=== PATIENT | male | born 1970 | race Hispanic/Latino ===

== ENCOUNTER 2022-10-04 11:40 | Emergency (ER) | payer BC, OTHER ==
[~2022-10-04] VITALS: Ht 175.3 cm; Wt 152.0 kg
[2022-10-04 13:15] LABS: BASOPHILS % (AUTO) 0.6 % (0.0-5.0); EOSINOPHILS % (AUTO) 1.8 % (0.0-8.0); HEMATOCRIT 38.4 % (42-54); LYMPHOCYTES % (AUTO) 23.7 % (21.0-51.0); MEAN CORPUSCULAR HEMOGLOBIN 27.4 pg (27.0-33.0); MEAN CORPUSCULAR HGB CONC 33.9 g/dL (32.0-36.0); MEAN CORPUSCULAR VOLUME 80.8 fL (79-99); MONOCYTES % (AUTO) 6.6 % (3.0-13.0); NEUTROPHILS % (AUTO) 66.7 % (40.0-77.0); PLATELET COUNT (AUTO) 256 K/uL (130-400); RED BLOOD CELL COUNT(AUTO) 4.75 MIL/uL (4.50-6.20); RED CELL DISTRIBUTION WIDTH 13.9 % (11.0-15.5); WHITE BLOOD COUNT (AUTO) 10.3 K/uL (4.8-10.8)
[2022-10-04 14:13] LABS: ALBUMIN 3.3 g/dL (3.5-5.0); CREATININE 0.9 mg/dL (0.5-1.5); TOTAL PROTEIN, SERUM 7.3 g/dL (6.0-8.3)
[2022-10-04 14:14] LABS: POTASSIUM 2.9 mmol/L (3.5-5.1)
[2022-10-04] MEDS: POTASSIUM BICARB/CIT AC 25 MEQ TABLET.EFF PO ONE (15:19)
[2022-10-04] MEDS ORDERED: POTA99CA PO (16:03)
[2022-10-04 16:14] VITALS: BP 156/77
== END 2022-10-04 16:20 | disposition home or self-care (01) ==
LOC: EDH 11:40
DX: E87.6 Hypokalemia (principal); R00.2 Palpitations; E11.9 Type 2 diabetes mellitus without complications; I10 Essential (primary) hypertension
CPT/HCPCS: 36415; 71045; 80053; 84484; 85025; 93005

== ENCOUNTER 2024-10-18 08:53 | Inpatient (IN) | payer BC ==
[~2024-10-18] VITALS: Ht 175.3 cm; Wt 145.7 kg
[~2024-10-18 08:53] MED LIST: POTA99CA PO
--- NOTE | 2024-10-18 09:24 | ERN ---
General Chief Complaint: Dyspnea/Respdistress Stated Complaint: SOB X 3 DAYS Time Seen by MD: 09:01 History of Present Illness Initial Comments 54-year-old male, history of obesity, hypertension, diabetes, presents for dyspnea for the last three or four days. He reports two months of worsening dyspnea, but the last three or four days have been severe. He reports he feels like he is wheezing and he can not catch a deep breath. No sore throat, productive cough, or fever. He went to his PCP and was started on Trelegy and albuterol. He has been using this regularly without any relief. He also reports that he recently switched from hydrochlorothiazide to Lasix about four months ago. He does report some mild bilateral pedal edema. No chest pain. PCP: Mathew Allergies: Coded Allergies: No Known Drug Allergies (Verified Allergy, 08/29/13) Home Meds Active Scripts Albuterol Sulfate (Ventolin Hfa) 90 Mcg Hfa.aer.ad, 2 PUFF IH Q4PRN PRN for SHORTNESS OF BREATH/WHEEZING for 90 Days, #7 INHALER Prov:CR CARMONA MD 10/18/24 Amlodipine Besylate (Amlodipine Besylate) 10 Mg Tablet, 10 MG PO DAILY for 30 Days, #30 TAB 0 Refills Prov:CR CARMONA MD 10/18/24 Buspirone HCl (Buspirone HCl) 5 Mg Tablet, 5 MG PO BID PRN for ANXIETY, #90 TAB Prov:CR CARMONA MD 10/18/24 Carvedilol (Carvedilol) 25 Mg Tablet, 25 MG PO BID for 90 Days, #180 TAB Prov:CR CARMONA MD 10/18/24 Cetirizine HCl (Cetirizine HCl) 10 Mg Tablet, 10 MG PO HS, #90 TAB Prov:CR CARMONA MD 10/18/24 Sacubitril/Valsartan (Entresto 49 mg-51 mg Tablet) 49 Mg-51 Mg Tablet, 1 TAB PO BID for 90 Days, #180 TAB Prov:CR CARMONA MD 10/18/24 Escitalopram Oxalate (Escitalopram Oxalate) 10 Mg Tablet, 10 MG PO DAILY for 90 Days, #90 TAB Prov:CR CARMONA MD 10/18/24 Fluticasone Propionate (Flonase Allergy Relief) 50 Mcg/Actuation [place].susp, 2 SPRAY NS DAILY PRN for allergies, #9 ML Prov:CR CARMONA MD 10/18/24 Furosemide (Furosemide) 40 Mg Tablet, 40 MG PO BID for 90 Days, #180 TAB Prov:CR CARMONA MD 10/18/24 Hydralazine HCl (Hydralazine HCl) 100 Mg Tablet, 100 MG PO TID for 90 Days, #270 TAB Prov:CR CARMONA MD 10/18/24 Metformin HCl (Metformin HCl) 500 Mg Tablet, 500 MG PO BID for 90 Days, #180 TAB Prov:CR CARMONA MD 10/18/24 Minoxidil (Minoxidil) 10 Mg Tablet, 10 MG PO BID for 90 Days, #180 TAB Prov:CR CARMONA MD 10/18/24 Semaglutide (Ozempic) 2 Mg/0.75 Ml (8 Mg/3 Ml) Pen.injctr, 2 MG SQ QWEEK for 90 Days, #3 ML Prov:CR CARMONA MD 10/18/24 Rosuvastatin Calcium (Rosuvastatin Calcium) 5 Mg Tablet, 5 MG PO HS for 90 Days, #90 TAB Prov:CR CARMONA MD 10/18/24 Fluticasone/Umeclidin/Vilanter (Trelegy Ellipta 100-62.5-25) 100-62.5 Blst.w.dev, 1 PUFF IH DAILY for 90 Days, #90 EA Prov:CR CARMONA MD 10/18/24 Discontinued Scripts Potassium Citrate (Potassium) 99 Mg Capsule, 99 MG PO BID, #7 CAP Prov:ALEKSANDER BOURNE MD 10/04/22 Past Medical History Past Medical History: CHF, Diabetes-Type II, Hypertension Past Surgical History: None Surgical History Other: LEFT LEG Social History Social History: Negative ROS Dictation CONSTITUTIONAL: No chills, no fever, no weakness, no diaphoresis, no malaise. HEAD/FACE: No signs of trauma. EENT: No eye pain, no blurred vision, no tearing, no double vision, no ear pain, no ear discharge, no nose pain, no nasal congestion, no throat pain, no throat swelling, no mouth pain. RESPIRATORY: Dyspnea CARDIOVASCULAR: No chest pain, no edema, no palpitations, no syncope. GASTROINTESTINAL/ABDOMINAL: No abdominal pain, no constipation, no diarrhea, no nausea, no vomiting. GENITOURINARY: No abnormal discharge, no dysuria, no frequent urination, no hematuria. No complaints of pain in the genitals. MUSCULOSKELETAL: No back pain, no gout, no joint pain, no joint swelling, no muscle pain, no muscle stiffness, no neck pain. INTEGUMENTARY: No change in color, no change in hair/nails, no dryness, no lesion, no lumps, no rash. NEUROLOGICAL/PSYCH: No anxiety, not depressed, no emotional problem, no headache, no numbness, no pre-existing deficit, no history of seizures, no tremors, no weakness. HEMATOLOGIC/LYMPHATIC: Not anemic, no history of blood clots, no apparent bleeding, no bruising, glands not swollen. All Systems Negative, Except as Noted. Physical Exam Physical Exam Dictation VITAL SIGNS: Reviewed. GENERAL APPEARANCE: Alert, oriented x3, moderate distress, obese. HEAD AND FACE: Non-traumatic. EYES: PERRL, pink conjunctivas, eyelid no trauma, anterior chamber clear. EARS: Pinnas intact and no signs of trauma or erythema. Ear canals clear and no discharge. TMs no erythema. NOSE: No discharge, no bleeding. OROPHARYNX: Mouth normal, teeth no caries, tongue pink. Pharynx clear, no erythema. Tonsils no exudates, no abscesses noted. Mucous membrane moist. NECK: Supple, non-tender, no thyromegaly, no masses, no JVD, no bruits. BREAST: Deferred. CHEST: No tenderness, no crepitus, no paradoxical movement, no retractions. LUNGS: Mild wheezing and congestion, tachypneic HEART: Regular rate, regular rhythm, no murmur, no gallops. VASCULAR: No peripheral edema. ABDOMEN: Soft, positive bowel sounds, nondistended, no guarding, nontender, no rebound, no masses no hepatomegaly, no splenomegaly, no Goodwin's sign, no hernias. RECTAL: Deferred. GENITAL: Deferred. NEUROLOGICAL: Normal speech, gross motor function intact, gross sensory function intact. MUSCULOSKELETAL: Neck nontender, full range of motion, back nontender, full range of motion. EXTREMITIES: Nontender, full range of motion. SKIN: Color pink, dry, no turgor, no rash, no lacerations, no abrasions, no contusions. LYMPHATICS: Deferred. Results Laboratory and Microbiology Lab and Micro Result Laboratory Tests Test 10/18/24 09:13 10/18/24 09:57 White Blood Count 7.0 K/uL (4.8-10.8) Red Blood Count 4.58 MIL/uL (4.50-6.20) Hemoglobin 12.7 g/dL (14.0-18.0) L Hematocrit 38.6 % (42-54) L Mean Corpuscular Volume 84.3 fL (79-99) Mean Corpuscular Hemoglobin 27.7 pg (27.0-33.0) Mean Corpuscular Hemoglobin Concent 32.9 g/dL (32.0-36.0) Red Cell Distribution Width 14.1 % (11.0-15.5) Platelet Count 210 K/uL (130-400) Mean Platelet Volume 9.4 fL (7.5-10.5) Immature Granulocyte % (Auto) 0.6 % (0-1) Neutrophils (%) (Auto) 69.3 % (40.0-77.0) Lymphocytes (%) (Auto) 22.6 % (21.0-51.0) Monocytes (%) (Auto) 4.6 % (3.0-13.0) Eosinophils (%) (Auto) 2.3 % (0.0-8.0) Basophils (%) (Auto) 0.6 % (0.0-5.0) Neutrophils # (Auto) 4.8 K/uL (1.8-7.7) Lymphocytes # (Auto) 1.6 K/uL (1.0-4.8) Monocytes # (Auto) 0.3 K/uL (0.1-1.0) Eosinophils # (Auto) 0.16 K/uL (0.00-0.70) Basophils # (Auto) 0.04 K/uL (0.00-0.20) Absolute Immature Granulocyte (auto 0.04 K/uL (0-1) Nucleated Red Blood Cells 0.0 % (0.0-0.19) Sodium Level 143 mmol/L (136-145) Potassium Level 3.0 mmol/L (3.5-5.1) *L Chloride Level 106 mmol/L (101-111) Carbon Dioxide Level 32 mmol/L (21-32) Blood Urea Nitrogen 15 mg/dL (7-18) Creatinine 1.3 mg/dL (0.5-1.3) Glomerular Filtration Rate Calc 65 mL/min (>90) Random Glucose 231 mg/dL (70-105) H Total Calcium 8.6 mg/dL (8.5-10.1) Total Creatine Kinase 72 U/L (21-232) Troponin I High Sensitivity 18 ng/L (4-75) B-Type Natriuretic Peptide 128 pg/mL (0-100) H Blood Gas Specimen Type Arterial Arterial Blood pH 7.445 (7.350-7.450) Arterial Blood Partial Pressure CO2 35 mmHg (35-48) Arterial Blood Partial Pressure O2 66.7 mmHg (83.0-108.0) L Arterial Blood HCO3 23.6 mmol/L (21.0-28.0) Arterial Blood Oxygen Saturation 94.1 % (94.0-98.0) Arterial Blood Base Excess 0.1 mmol/L (-2.0-3.0) Blood Gas Temperature 37.0 CELSIUS (35.5-37.0) Blood Gas Vent Mode RA (ROOM AIR) FiO2 31.0 % Blood Gas Specimen Comment RRJULIE MDM CC: Dyspnea Historian: Patient Comorbidities: Possible CHF, dm two, hypertension, concern for emphysema being worked up as an outpatient, obesity, GIANCARLO, previous smoker Differential diagnosis: Emphysema, pneumonia, CHF, tamponade, PE, other. Vitals: Initially tachypneic breathing 20-20 4 times a minute. Blood pressure is stable. Oxygen 91%. Placed on cannula. EKG: Sinus rhythm rate of 67 with a normal axis good R progression intervals are stable. T-wave inversion in leads one and aVL. Otherwise unremarkable ST segments and T-waves. independently interpreted by me. CXR: Cardiomegaly, vascular congestion. Independently interpreted by me. Labs: No leukocytosis no anemia. Chemistry shows hypokalemia, otherwise nor mal electrolytes. Glucose 231. The CK, troponin stable. BNP mildly elevated 128. ABG shows PaO2 of 66 on room air. Otherwise unremarkable ABG. He was placed on 2 L nasal cannula. Patient received 40 mg of IV Lasix, potassium bicarb p.o., methylprednisolone, and a DuoNeb here in the ER. CT angiogram per my independent interpretation shows no signs of PE, but there is pericardial effusion. This may be causing the patient's symptoms. I discussed the case with the patient's primary provider Dr. Carmona. Recommend admission. ED Course Orders Procedure Category Date Status Time Cbc With Differential LAB 10/18/24 Complete 08:59 B-Type Natriuretic LAB 10/18/24 Complete Peptide 08:59 Chest 1vw RAD 10/18/24 Resulted 08:59 12 Lead Ekg Tracing- EKG 10/18/24 Resulted Technical 08:59 Creatine Kinase, Total LAB 10/18/24 Complete 08:59 Troponin I High LAB 10/18/24 Complete Sensitivity 08:59 Basic Metabolic Panel LAB 10/18/24 Complete 08:59 Arterial Blood Gas RT 10/18/24 Transmitted 09:18 Ipratropium/Albuterol PHA 10/18/24 Complete Neb (Duoneb) 09:30 Methylprednisolone PHA 10/18/24 Complete Succ 125mg (Solu-Medr 09:30 Ct Chest Pe Protocol CT 10/18/24 Resulted Wwo Cont 09:18 Arterial Blood Gas LAB 10/18/24 Complete 09:57 Potassium Bicarb/Cit PHA 10/18/24 Complete Ac 25meq (K-Lyte Ta 10:30 Furosemide 40mg Vial PHA 10/18/24 Complete (Lasix 40mg Vial) 10:30 Iohexol (Omnipaque) PHA 10/18/24 Complete 10:42 Vital Signs(Adult CPOE 10/18/24 Transmitted Hospitalist) 12:26 Nurse To Enter Home CPOE 10/18/24 Transmitted Medication 12:26 Admit Orders ADM 10/18/24 Transmitted 12:26 Current Medications Medications (Trade) Dose Ordered Sig/Blaine Route PRN Reason Start Time Stop Time Status Last Admin Dose Admin Albuterol (DUOneb) 1 UDVIAL ONCE ONCE IH 10/18/24 09:30 10/18/24 09:31 DC 10/18/24 10:12 Furosemide (LASix 40MG VIAL) 40 mg ONCE ONCE IV 10/18/24 10:30 10/18/24 10:31 DC 10/18/24 10:24 Iohexol (Omnipaque) 35,000 mg STK-MED ONCE IV 10/18/24 10:42 10/18/24 10:42 DC Methylprednisolone Sodium Succinate (Solu-medROL 125MG) 125 mg ONCE ONCE IVP 10/18/24 09:30 10/18/24 09:31 DC 10/18/24 09:45 Potassium Bicarbonate (K-Lyte Tablet Eff 25 Meq Tablet.eff) 50 meq ONCE ONCE PO 10/18/24 10:30 10/18/24 10:31 DC 10/18/24 10:18 Vital Signs Date Time Temp Pulse Resp B/P (MAP) Pulse Ox O2 Delivery O2 Flow Rate FiO2 10/18/24 11:00 72 16 167/71 97 Nasal Cannula* 3 32 10/18/24 10:13 79 18 10/18/24 08:54 98.6 65 20 183/83 98 Room Air 0 DX & DISP Disposition: Inpatient Departure Impression: Primary Impression: Respiratory failure with hypoxia Additional Impressions: Hyperglycemia, Hypokalemia, Pericardial effusion Condition: Stable Scripts Albuterol Sulfate (Ventolin Hfa) 90 Mcg Hfa.aer.ad 2 PUFF IH Q4PRN PRN for SHORTNESS OF BREATH/WHEEZING for 90 Days, #7 INHALER Prov: CR CARMONA MD 10/18/24 Amlodipine Besylate (Amlodipine Besylate) 10 Mg Tablet 10 MG PO DAILY for 30 Days, #30 TAB 0 Refills Prov: CR CARMONA MD 10/18/24 Buspirone HCl (Buspirone HCl) 5 Mg Tablet 5 MG PO BID PRN for ANXIETY, #90 TAB Prov: CR CARMONA MD 10/18/24 Carvedilol (Carvedilol) 25 Mg Tablet 25 MG PO BID for 90 Days, #180 TAB Prov: CR CARMONA MD 10/18/24 Cetirizine HCl (Cetirizine HCl) 10 Mg Tablet 10 MG PO HS, #90 TAB Prov: CR CARMONA MD 10/18/24 Sacubitril/Valsartan (Entresto 49 mg-51 mg Tablet) 49 Mg-51 Mg Tablet 1 TAB PO BID for 90 Days, #180 TAB Prov: CR CARMONA MD 10/18/24 Escitalopram Oxalate (Escitalopram Oxalate) 10 Mg Tablet 10 MG PO DAILY for 90 Days, #90 TAB Prov: CR CARMONA MD 10/18/24 Fluticasone Propionate (Flonase Allergy Relief) 50 Mcg/Actuation [place].susp 2 SPRAY NS DAILY PRN for allergies, #9 ML Prov: CR CARMONA MD 10/18/24 Furosemide (Furosemide) 40 Mg Tablet 40 MG PO BID for 90 Days, #180 TAB Prov: CR CARMONA MD 10/18/24 Hydralazine HCl (Hydralazine HCl) 100 Mg Tablet 100 MG PO TID for 90 Days, #270 TAB Prov: CR CARMONA MD 10/18/24 Metformin HCl (Metformin HCl) 500 Mg Tablet 500 MG PO BID for 90 Days, #180 TAB Prov: CR CARMONA MD 10/18/24 Minoxidil (Minoxidil) 10 Mg Tablet 10 MG PO BID for 90 Days, #180 TAB Prov: CR CARMONA MD 10/18/24 Semaglutide (Ozempic) 2 Mg/0.75 Ml (8 Mg/3 Ml) Pen.injctr 2 MG SQ QWEEK for 90 Days, #3 ML Prov: CR CARMONA MD 10/18/24 Rosuvastatin Calcium (Rosuvastatin Calcium) 5 Mg Tablet 5 MG PO HS for 90 Days, #90 TAB Prov: CR CARMONA MD 10/18/24 Fluticasone/Umeclidin/Vilanter (Trelegy Ellipta 100-62.5-25) 100-62.5 Blst.w.dev 1 PUFF IH DAILY for 90 Days, #90 EA Prov: CR CARMONA MD 10/18/24 Referrals: CR CARMONA MD (PCP) RICCI BEDOYA DO Oct 18, 2024 09:24
[2024-10-18 09:37] LABS: BASOPHILS # (AUTO) 0.04 K/uL (0.00-0.20); BASOPHILS % (AUTO) 0.6 % (0.0-5.0); EOSINOPHILS # (AUTO) 0.16 K/uL (0.00-0.70); EOSINOPHILS % (AUTO) 2.3 % (0.0-8.0); HEMATOCRIT 38.6 % (42-54); IMMATURE GRANULOCYTE ABSOLUTE 0.04 K/uL (0-1); LYMPHOCYTES # (AUTO) 1.6 K/uL (1.0-4.8); LYMPHOCYTES % (AUTO) 22.6 % (21.0-51.0); MEAN CORPUSCULAR HEMOGLOBIN 27.7 pg (27.0-33.0); MEAN CORPUSCULAR HGB CONC 32.9 g/dL (32.0-36.0); MEAN CORPUSCULAR VOLUME 84.3 fL (79-99); MONOCYTES # (AUTO) 0.3 K/uL (0.1-1.0); MONOCYTES % (AUTO) 4.6 % (3.0-13.0); NEUTROPHILS # (AUTO) 4.8 K/uL (1.8-7.7); NEUTROPHILS % (AUTO) 69.3 % (40.0-77.0); PLATELET COUNT (AUTO) 210 K/uL (130-400); RED BLOOD CELL COUNT(AUTO) 4.58 MIL/uL (4.50-6.20); RED CELL DISTRIBUTION WIDTH 14.1 % (11.0-15.5)
--- NOTE | 2024-10-18 09:41 | EKG ---
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[id number] Requested By: RHIANNON STEVENSON Order Number: [id number] Reading MD: Joelle Simmons Measurements Intervals [place] Rate: 67 P: -12 WY: 214 QRS: -4 QRSD: 95 T: 185 QT: 414 QTc: 436 Interpretive Statements Sinus rhythm Prolonged [place] interval Low voltage, precordial leads Consider anterior infarct Abnormal T, consider ischemia, lateral leads Compared to ECG 10/04/2022 12:26:39 First degree AV block now present Low QRS voltage now present Myocardial infarct finding now present T-wave abnormality still present Possible ischemia still present Electronically Signed On 10-18-2024 13:33:50 APPLICATION SECURITY ARCHITECT by Joelle Simmons Please click the below link to view image of tracing.
[2024-10-18] MEDS: Solu-medROL 125MG VIAL IVP ONE (09:45)
[2024-10-18 09:47] LABS: CREATININE 1.3 mg/dL (0.5-1.3)
[2024-10-18 09:58] LABS: ABG BASE EXCESS 0.1 mmol/L (-2.0-3.0); ABG HCO3 23.6 mmol/L (21.0-28.0); ABG OXYGEN SATURATION 94.1 % (94.0-98.0); ABG PCO2 35 mmHg (35-48); ABG PH 7.445 (7.350-7.450); DEVICE COMMENT RRJULIE; PO2, ARTERIAL BG 66.7 mmHg (83.0-108.0); VENT MODE, BG RA (ROOM AIR)
--- NOTE | 2024-10-18 10:00 | HMCIMG ---
CHEST 1VW REASON: shortness of breath COMPARISON: 10/04/2022 FINDINGS: There is stable cardial megaly. There is mild vascular congestion. Lungs are otherwise clear. Mediastinum and bony thorax appear unremarkable. IMPRESSION: 1. Cardiomegaly with vascular congestion consistent with CHF.
[2024-10-18 10:01] LABS: B-TYPE NATRIURETIC PEPTIDE 128 pg/mL (0-100)
[2024-10-18] MEDS: IpraTROPium/alBUTERol SULFATE 3 ML SOLUTION IH ONE (10:12)
[2024-10-18 10:13] VITALS: PULSE 79; RESP 18
[2024-10-18] MEDS: PoTASSium BIcarbonate/CIT AC 25 MEQ TABLET.EFF PO ONE (10:18)
[2024-10-18] MEDS: furoSEMIDE 40MG VIAL IV ONE (10:24)
[2024-10-18] MEDS ORDERED: IOHEXOL 350 MG/ML 100ML INFUS..BTL IV ONE (10:42)
--- NOTE | 2024-10-18 12:04 | HMCIMG ---
CT CHEST PE PROTOCOL [facility] CONT REASON: r/o PE TECHNIQUE: Thin axial images through the chest were obtained during bolus intravenous administration of 100 ml of Omnipaque 350. Sagittal and coronal reconstruction images were performed. FINDINGS: Lungs are clear. There are no focal masses or infiltrates. There is cardiomegaly accentuated by a moderate pericardial effusion, the effusion measures 2 cm along the left heart margin. There is no hilar or mediastinal lymphadenopathy. Chest wall structures appear normal as do visualized upper abdominal structures. Contrast outlines normal appearing central pulmonary arteries. There is no CT evidence of PE. The a sending aorta appears normal without aneurysm or dissection. IMPRESSION: 1. There is cardiomegaly, there is also moderate pericardial effusion. 2. No CT evidence of PE. CT was performed with one or more following dose reduction techniques: automated exposure control, adjustment of the mA and kv according to patient's size, or use of a iterative reconstruction technique.
[2024-10-18] MEDS ORDERED: guaiFENesin-DM 200/20MG 10ML PO PRN (12:30)
[2024-10-18] MEDS ORDERED: MAGNESIUM 2GM PREMIX 50ML 50 ML IV PRN (12:30)
[2024-10-18] MEDS ORDERED: acetaMINOPHEN 325 MG TAB PO PRN (12:30)
[2024-10-18] MEDS ORDERED: PoTASSium chl 10% ELIXIR 20MEQ 20 MEQ/15 ML UDCUP PO PRN (12:30)
[2024-10-18] MEDS ORDERED: ondanSETRON 4MG INJ IV PRN (12:30)
[2024-10-18] MEDS ORDERED: DEXTROSE 50%-WATER 50 ML DISP.SYRIN IV PRN ×2 (12:30→18:30)
[2024-10-18] MEDS ORDERED: MAG/ALUM/SIMETH 30 ML UDCUP PO PRN (12:30)
[2024-10-18] MEDS ORDERED: ALBUTEROL 0.083% 2.5 MG/3 ML INH IH PRN (12:30)
[2024-10-18] MEDS ORDERED: GLUCAGON 1MG KIT 1 MG ML IM PRN ×2 (12:30→18:30)
[2024-10-18] MEDS ORDERED: LACTULOSE 20 GM/30 ML UDCUP PO PRN (12:30)
[2024-10-18] MEDS ORDERED: HYDR100T15 PO (12:32)
[2024-10-18] MEDS ORDERED: ROSU5TAB51 PO (12:32)
[2024-10-18] MEDS ORDERED: BUSP5TAB3 PO (12:32)
[2024-10-18] MEDS ORDERED: ESCI-8 PO (12:32)
[2024-10-18] MEDS ORDERED: SACU1TAB7 PO (12:32)
[2024-10-18] MEDS ORDERED: ALBU18HF7 IH (12:32)
[2024-10-18] MEDS ORDERED: FLUT9.9S NS (12:32)
[2024-10-18] MEDS ORDERED: FURO40TA5 PO (12:32)
[2024-10-18] MEDS ORDERED: AMLO-258 PO (12:32)
[2024-10-18] MEDS ORDERED: FLUT1BLS3 IH (12:32)
[2024-10-18] MEDS ORDERED: CETI10TA57 PO (12:32)
[2024-10-18] MEDS ORDERED: CARV25TA PO (12:32)
[2024-10-18] MEDS ORDERED: METF-444 PO (12:32)
[2024-10-18] MEDS ORDERED: MINO10TA3 PO (12:32)
[2024-10-18] MEDS ORDERED: SEMA2PEN SQ (12:32)
[2024-10-18] MEDS: hydrALAZine 25MG TABLET PO SCH (15:10)
--- NOTE | 2024-10-18 16:49 | NUR ---
REPORT GIVEN TO RAMIREZ LUTZ PT MOVED FROM ER 9 TO ER 3
--- NOTE | 2024-10-18 17:15 | NUR ---
PATIENT ALERT, ORIENTED IN PERSON, TIME AND PLACE. PATIENT SHORT OF BREATH WHEN RESTING. USING ABDOMINAL MUSCLES. O2 SATURATION 99 % WITH NASAL CANULA @ 3LTS. HE IS IN A SEMI HERNANDES POSITION, 60 DEGRESS, BED LOW AND LOCKED. BLOOD PRESSURE 190/ 100 MMHG, PULSE 91, RESPIRATIONS 20 P/MIN. CALLED DR. TABARES TO NOTIFY HER ABOUT EVENTS. NO ANSWER AT THIS MOMENT. REPOSITIONED PATIENT.
--- NOTE | 2024-10-18 17:30 | NUR ---
SPOKE WITH DR. TABARES; (VIEW ORDERS) CALLED PHARMACY, SPOKE WITH TASIA; NOTIFY HER THAT DR. TABARES GAVE ME THE OK TO GIVE 2100 MDICATIONS.
[2024-10-18] MEDS: (Escitalopram Oxalate 10 MG) PO SCH (17:44)
[2024-10-18] MEDS: amLODIPine 5 MG TAB PO SCH (17:49)
[2024-10-18] MEDS: furoSEMIDE 40MG VIAL IVP SCH ×2 (17:51→20:08)
[2024-10-18] MEDS: furoSEMIDE 40MG VIAL ONE (17:52)
[2024-10-18] MEDS: Solu-medROL 125MG VIAL ONE (17:52)
[2024-10-18] MEDS: SACUBITRIL/VALSARTAN 1 EACH TABLET PO ONE (17:53)
[2024-10-18] MEDS: carVEDIlol 25 MG TABLET PO ONE (17:53)
--- NOTE | 2024-10-18 18:00 | NUR ---
GAVE PATIENT 2100 MEDICATIONS. CALLED RT TO PLACE PATIENT ON A BIPAP.
--- NOTE | 2024-10-18 18:10 | NUR ---
PAGED DR. RUSSELL DIRECTED BY DR. TABARES. LEFT A VOICEMAIL. AND PAGED HIM. NO RESPONSE
[2024-10-18] MEDS: PoTASSium chloRIDE 20MEQ ER 20 MEQ ERTAB PO PRN (18:15)
[2024-10-18] MEDS: ENOXAPARIN SODIUM 40 MG/0.4 ML SYRINGE SQ SCH (18:16)
--- NOTE | 2024-10-18 18:16 | NUR ---
CALLED PHARMACY TO NOTIFY THEM I NEEDED NITRO PATCH 0.2. NOT AVAILABLE ON [facility] IN ED.
--- NOTE | 2024-10-18 18:17 | HP ---
HISTORY AND PHYSICAL Date of Visit: Oct 18, 2024 Time of Visit: 18:17 ADMISSION DATE: Oct 18, 2024 at 12:26 CC: SOB/BARAHONA HPI: THIS IS A 54 YR OLD MAN WITH HISTORY OF MORBID OBESITY, HYPERTENSIVE HEART AND RENAL DISEASE WITH CHRONIC DIASTOLIC CHF, COPD AND GIANCARLO. HE REPORTS COMPLIANCE WITH MEDS AND CPAP. HE HAD BEEN DOING FAIRLY WELL UP UNTIL THE PAST 2 MONTHS WHEN HE STARTED TO NOTICE INCREASED BARAHONA AND INTERMITTENT SOB. HE DENIED ANY CHEST PAIN OR PALPITATION. NO COUGH CONGESTION OR FEVERS. NO ABNORMAL WEIGHT LOSS ABDOMINAL PAIN OR NAUSEA OR VOMITING. HE HAS HAD SOME WHEEZING AND HAS HAD SOME GRADUAL DECREASE IN EXERCISE TOLERANCE. THE PAST FEW DAYS HIS SYMPTOMS HAVE INTENSIFIED. HE HAS SEEN DR VALENTÍN MAZARIEGOS IN THE PAST FOR PREVIOUS CARDIAC WORK UP DONE IN MARCH 2023 WHERE HE WAS FOUND TO HAVE SOME CAD BUT NON - OBSTRUCTIVE DISEASE. HE REPORTS AFTER THAT HE WAS TOLD BY DR RUSSELL THAT HE DID NOT NEED TO SEE HIM UNLESS THERE WERE NEW PROBLEMS THAT DEVELOPED. HE IS ON MULTIPLE MEDS FOR HYPERTENSION CONTROL AND REPORTS HE BELIEVES HIS BLOOD PRESSURE HAD BEEN DOING OK. 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 PAST MEDICAL HISTORY: DM II WITH MULTIPLE COMPLICATIONS HYPERTENSIVE HEART AND RENAL DISEASE WITH CHRONIC DIASTOLIC CHF S/P HEART CATH 03/2023 - DR VALENTÍN RUSSELL - 20-30$ LAD AND 20-30% MID RCA WITH NORMAL EF GIANCARLO WITH REPORTED COMPLIANCE 0 12 CM QHS COPD / FORMER SMOKER MIXED HYPERLIPIDEMIA MORBID OBESITY / BMI 48 ERWIN / MAJOR DEPRESSION, SINGLE EPISODE, MILD LUMBAR STENOSIS / OTHER SPEC SPONDYLOPATHIES, LUMBAR R ADRENAL MYELOLIPOMA 2X1 CM (01/24) SOCIAL HISTORY: LIVES LOCALLY, EX SMOKER NO CURRENT ALCOHOL TOBACCO OR DRUG ABUSE FAMILY HISTORY: + DM HTN CHF COPD ^ Allergies: Coded Allergies: No Known Drug Allergies (Verified Allergy, 08/29/13) Scheduled Amlodipine Besylate (Amlodipine Besylate), 10 MG PO DAILY Carvedilol (Carvedilol), 25 MG PO BID Cetirizine HCl (Cetirizine HCl), 10 MG PO HS Escitalopram Oxalate (Escitalopram Oxalate), 10 MG PO DAILY Fluticasone/Umeclidin/Vilanter (Trelegy Ellipta 100-62.5-25), 1 PUFF IH DAILY Furosemide (Furosemide), 40 MG PO BID Hydralazine HCl (Hydralazine HCl), 100 MG PO TID Metformin HCl (Metformin HCl), 500 MG PO BID Minoxidil (Minoxidil), 10 MG PO BID Rosuvastatin Calcium (Rosuvastatin Calcium), 5 MG PO HS Sacubitril/Valsartan (Entresto 49 mg-51 mg Tablet), 1 TAB PO BID Semaglutide (Ozempic), 2 MG SQ QWEEK Scheduled PRN Albuterol Sulfate (Ventolin Hfa), 2 PUFF IH Q4PRN PRN for SHORTNESS OF BREATH/WHEEZING Buspirone HCl (Buspirone HCl), 5 MG PO BID PRN for ANXIETY Fluticasone Propionate (Flonase Allergy Relief), 2 SPRAY NS DAILY PRN for allergies Discontinued Medications Potassium Citrate (Potassium), 99 MG PO BID Review of Systems Normal Constitutional:, Normal Eyes:, Normal Ear/Nose/Mouth/Throat, Normal Gastrointestinal:, Normal Genitourinary:, Normal Integumentary:, Normal Musculoskeletal:, Normal Neurological:, Normal Psychological:, Normal Endocrine:, Normal Hematologic/Lymphatic:, Normal Allergic/Immunologic:; Abnormal Cardiovascular: (REFER TOP HPI), Abnormal Respiratory: (REFER TO HPI) Physical Exam Vital Signs Vital Signs Date Time Temp Pulse Resp B/P (MAP) Pulse Ox O2 Delivery O2 Flow Rate FiO2 10/18/24 08:54 98.6 65 20 183/83 98 Room Air 0 10/18/24 11:00 32 Appearance: Other (MORBIDLY OBESE RESTIG ON O2 P-ER NC) Eyes: Clear, EOM Normal Ear/Nose/Mouth/Throat: Landmarks WNL, Oropharynx WNL Neck: Symmetric, trach midline, Thyroid WNL Cardiovascular: PMI WNL, Regular Rate, Regular Rhythm, Abnormal (+ TRACE LEG EDEMA) Respiratory: No Retractions, Abnormal (DECREASED BREATH SUND BILATERALLY WITH SOME EXPIRATORY WHEEZING) Lymphatic: No lymphadenopathy neck, No lymphadenopathy axilla, No lymphadenopathy groin Musculoskeletal: Normal ROM, Strength/Tone WNL Skin: No rash/ulcers, No induration/nodules Neurology: Nerves I-XII intact, Sensation WNL Psychology: Insight WNL, Orientation WNL, Memory WNL, Affect WNL Diagnostics Laboratory Tests Test 10/18/24 09:13 10/18/24 09:57 Range/Units White Blood Count 7.0 4.8-10.8 K/uL Red Blood Count 4.58 4.50-6.20 MIL/uL Hemoglobin 12.7 14.0-18.0 g/dL Hematocrit 38.6 42-54 % Mean Corpuscular Volume 84.3 79-99 fL Mean Corpuscular Hemoglobin 27.7 27.0-33.0 pg Mean Corpuscular Hemoglobin Concent 32.9 32.0-36.0 g/dL Red Cell Distribution Width 14.1 11.0-15.5 % Platelet Count 210 130-400 K/uL Mean Platelet Volume 9.4 7.5-10.5 fL Immature Granulocyte % (Auto) 0.6 0-1 % Neutrophils (%) (Auto) 69.3 40.0-77.0 % Lymphocytes (%) (Auto) 22.6 21.0-51.0 % Monocytes (%) (Auto) 4.6 3.0-13.0 % Eosinophils (%) (Auto) 2.3 0.0-8.0 % Basophils (%) (Auto) 0.6 0.0-5.0 % Neutrophils # (Auto) 4.8 1.8-7.7 K/uL Lymphocytes # (Auto) 1.6 1.0-4.8 K/uL Monocytes # (Auto) 0.3 0.1-1.0 K/uL Eosinophils # (Auto) 0.16 0.00-0.70 K/uL Basophils # (Auto) 0.04 0.00-0.20 K/uL Absolute Immature Granulocyte (auto 0.04 0-1 K/uL Nucleated Red Blood Cells 0.0 0.0-0.19 % Sodium Level 143 136-145 mmol/L Potassium Level 3.0 3.5-5.1 mmol/L Chloride Level 106 101-111 mmol/L Carbon Dioxide Level 32 21-32 mmol/L Blood Urea Nitrogen 15 7-18 mg/dL Creatinine 1.3 0.5-1.3 mg/dL Glomerular Filtration Rate Calc 65 >90 mL/min Random Glucose 231 70-105 mg/dL Total Calcium 8.6 8.5-10.1 mg/dL Total Creatine Kinase 72 21-232 U/L Troponin I High Sensitivity 18 4-75 ng/L B-Type Natriuretic Peptide 128 0-100 pg/mL Blood Gas Specimen Type Arterial Arterial Blood pH 7.445 7.350-7.450 Arterial Blood Partial Pressure CO2 35 35-48 mmHg Arterial Blood Partial Pressure O2 66.7 83.0-108.0 mmHg Arterial Blood HCO3 23.6 21.0-28.0 mmol/L Arterial Blood Oxygen Saturation 94.1 94.0-98.0 % Arterial Blood Base Excess 0.1 -2.0-3.0 mmol/L Blood Gas Temperature 37.0 35.5-37.0 CELSIUS Blood Gas Vent Mode RA ROOM AIR FiO2 31.0 % Blood Gas Specimen Comment RRJULIE Assessment/Plan Assessment/Plan RADIOLOGY CHEST 1VW FINDINGS: There is stable cardial megaly. There is mild vascular congestion. Lungs are otherwise clear. Mediastinum and bony thorax appear unremarkable. IMPRESSION: Cardiomegaly with vascular congestion consistent with CHF. CT CHEST PE PROTOCOL WWO CONT FINDINGS: Lungs are clear. There are no focal masses or infiltrates. There is cardiomegaly accentuated by a moderate pericardial effusion, the effusion measures 2 cm along the left heart margin. There is no hilar or mediastinal lymphadenopathy. Chest wall structures appear normal as do visualized upper abdominal structures. Contrast outlines normal appearing central pulmonary arteries. There is no CT evidence of PE. The a sending aorta appears normal without aneurysm or dissection. IMPRESSION: 1. There is cardiomegaly, there is also moderate pericardial effusion. 2. No CT evidence of PE. 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) HE PRESENTED WITH ACUTE ON CHRONIC DIASTOLIC CHF EXACERBATION MODERATE PERICARDIAL EFFUSION COPD EXACERBATION HYPERTENSIVE URGENCY HYPOKALEMIA PLAN: PATIENT HAS BEEN STARTED ON DIURESIS AND APPEARS IMPROVED CT DONE AND NEGATIVE FOR PULMONARY EMBOLISM WILL CONTINUE WITH DIURESIS WITH IV LASIX O2 PER NC NEEDED AND TRY TO WEAN TOLERATED CONT BP MEDS AND ADJUST NEEDED FOR BETTER CONTROL ENCOURAGED FAMILY AT BEDSIDE TO BRING IN HS HOME CPAP AND USE Q HS WHILE IN THE HOSPITAL R.T. TO EVALUATE HIS MACHINE AND MAKE WORKING PROPERLY STARTED ON DUO-NEBS SCHEDULED AND ALBUTEROL Q 4 PRN STRESS DOSE STEROIDS GLUCOMETER CHECKS WITH ADDITIONAL INSULIN COVERAGE NEEDED LOVENOX FOR DVT PROPHYLAXIS PPI FOR STRESS ULCER PROPHYLAXIS FU 2 D ECHO TO EVALUATE HIS PERICARDIAL EFFUSION CONSULT HIS PUBLIC SPEAKING INSTRUCTOR FOR FURTHER RECOMMENDATIONS CR TABARES MD Oct 18, 2024 18:17
--- NOTE | 2024-10-18 18:21 | NUR ---
POTASSIUM 3.0. GAVE ORAL POTASSIUM 20MEQ.
--- NOTE | 2024-10-18 18:21 | NUR ---
BLOOD PRESSURE 153/62. RESPIRTIONS 19 P/MIN.
--- NOTE | 2024-10-18 18:30 | NUR ---
SPOKE TO DR. HURST BECAUSE DR. FORDE DID NOT ANSWER. DR. HURST TOLD ME THAT HE DOES NOT COVER FOR FRYLINE ATTENDANT AND TO NOT CALL HIM AGAIN.
--- NOTE | 2024-10-18 18:48 | NUR ---
CALLED DR. RUSSELL TO NOTIFY HIM ABOUT CT RESULTS. NO ANSWER. ALSO PAGED HIM.
--- NOTE | 2024-10-18 19:00 | NUR ---
SPOKE TO DR. DONAL RUSSELL, NOTIFY HIM ABOUT PATIENT CT SCAN RESULTS. NO ORDERS AT THIS MOMENT. HE STATED HE WILL BE VISITING PATIENT TOMORROW IN AM.
--- NOTE | 2024-10-18 19:00 | NUR ---
BLOOD PRESSURE 131/62 MMHG. PATIENT STATED NO DIFFICULTY WHILE BREATHING.
[2024-10-18] MEDS: IpraTROPium/alBUTERol SULFATE 3 ML SOLUTION IH SCH (19:14)
[2024-10-18 19:15] VITALS: PULSE 70; RESP 18
[2024-10-18 19:26] VITALS: PULSE 66; RESP 22; O2SAT 98
[2024-10-18] MEDS: NITROGLYCERIN PATCH 0.2 MG/HR TD SCH (19:46)
[2024-10-18] MEDS: Solu-medROL 125MG VIAL IVP SCH (20:08)
[2024-10-18] MEDS: carVEDIlol 25 MG TABLET PO SCH (20:08)
[2024-10-18] MEDS: SACUBITRIL/VALSARTAN 1 EACH TABLET PO SCH (20:09)
[2024-10-18] MEDS ORDERED: SACUBITRIL/VALSARTAN 1 EACH TABLET PO SCH (21:00)
[2024-10-18] MEDS ORDERED: PoTASSium chloRIDE 20MEQ ER 20 MEQ ERTAB PO SCH (21:00)
[2024-10-18] MEDS: MINOXIDIL 10 MG PO SCH (21:00)
[2024-10-18] MEDS: PoTASSium chloRIDE 20MEQ ER 20 MEQ ERTAB PO SCH (21:57)
[2024-10-18] MEDS: atorVAStatin 10 MG TABLET PO SCH (21:57)
[2024-10-18] MEDS: INSULIN humuLIN R 100 UNIT/ML 3ML SQ SCH (21:58)
--- NOTE | 2024-10-18 22:09 | NUR ---
ATTEMPTED TO CALL REPORT. NURSE TO CALL BACK FOR REPORT. EXTENSION PROVIDED.
--- NOTE | 2024-10-18 23:35 | NUR ---
PATIENT PLACED ON HOSPITAL BED.
--- NOTE | 2024-10-18 23:36 | NUR ---
PATIENT HAS IMPROVED WITH WORK OF BREATHING. PATIENT STATES THAT THE BIPAP MASK IS MAKING HIM UNCOMFORTABLE. RT INFORMED. PATIENT HAS HOME CPAP WITH HIM. WILL ATTEMPT TRIAL WITH HOME CPAP AND REASSESS.
[2024-10-18 23:43] VITALS: PULSE 75; RESP 18
[2024-10-18 23:49] VITALS: PULSE 68; RESP 18; O2SAT 99
--- NOTE | 2024-10-18 23:50 | NUR ---
Pt refused BIPAP and signed refusal form. Pt prefers to use home cPAP Addendum: 10/19/24 at 0423 by LORI GUTIERREZ RT Amended: Links added.
[2024-10-19] VITALS (11 sets, daily range): BP systolic 139–176; BP diastolic 62–77; PULSE 64–79; RESP 18–21; TEMP 98.5; O2SAT 93–98
[2024-10-19 05:55] LABS: HEMATOCRIT 40.8 % (42-54); MEAN CORPUSCULAR HEMOGLOBIN 27.6 pg (27.0-33.0); MEAN CORPUSCULAR HGB CONC 33.3 g/dL (32.0-36.0); MEAN CORPUSCULAR VOLUME 82.9 fL (79-99); RED BLOOD CELL COUNT(AUTO) 4.92 MIL/uL (4.50-6.20); RED CELL DISTRIBUTION WIDTH 14.1 % (11.0-15.5); WHITE BLOOD COUNT (AUTO) 15.6 K/uL (4.8-10.8)
[2024-10-19 06:14] LABS: CREATININE 1.2 mg/dL (0.5-1.3); MAGNESIUM 1.9 mg/dL (1.80-2.40)
[2024-10-19] MEDS: PoTASSium chloRIDE 20MEQ/100ML 100 ML IV PRN (06:25)
[2024-10-19] MEDS ORDERED: ENOXAPARIN SODIUM 40 MG/0.4 ML SYRINGE SQ SCH (09:00)
[2024-10-19] MEDS ORDERED: (Escitalopram Oxalate 10 MG) PO SCH (09:00)
[2024-10-19] MEDS ORDERED: amLODIPine 5 MG TAB PO SCH (09:00)
--- NOTE | 2024-10-19 11:42 | NUR ---
gave report to Dean Joel rn no concerns voiced Advised him that per Doctor do not give nitroglycerin patch at this time
--- NOTE | 2024-10-19 12:46 | PN ---
Subjective Review of Systems PROGRESS NOTE Date of Visit: Oct 19, 2024 Time of Visit: 12:40 Events since last encounter PATIENT STILL DYSPNEIC WITH EXERTION, NO CP OR PALPITATIONS Subjective PATIENT PLACED ON BIPAP OVERNIGHT AND THIS MORNING WEANED OFF AND USING HIS OWN CPAP PRN General: No Fever, No Chills, No Night Sweats, No Fatigue, No Malaise, No Appetite, No Other HEENT: No Head Aches, No Visual Changes, No Eye Pain, No Ear Pain, No Dysphasia, No Sinus Congestion, No Post Nasal Drip, No Sore Throat, No Other Pulmonary: Dyspnea; No Cough, No Pleuritic Chest Pain, No Other Cardiovascular: No: Chest Pain, Palpitations, Orthopnea, Paroxysmal Noc. Dyspnea, Edema, Lt Headedness, Other Gastrointestinal: No: Nausea, Vomiting, Abdominal Pain, Diarrhea, Constipation, Melena, Hematochezia, Other Genitourinary: No Dysuria, No Frequency, No Incontinence, No Hematuria, No Retention, No Other Musculoskeletal: No: other, neck pain, shoulder pain, arm pain, back pain, hand pain, leg pain, foot pain Skin: No Urticaria, No Rash, No Other Neurological: No: Weakness, Numbness, Incoordination, Change in speech, Confusion, Seizures, Other Objective Vitals and I/O Vital Sign (Last 24 Hours) 10/19/24 10/19/24 12:06 12:20 Temp 98.4 Pulse 78 Resp 18 B/P (MAP) 176/76 Pulse Ox 91 O2 Delivery Room Air* O2 Flow Rate 0 FiO2 21 Intake & Output (last 24hrs) 10/18/24 10/18/24 10/19/24 15:00 23:00 07:00 Output Total 300 ml Balance -300 ml General: Alert, Oriented X3, Cooperative, mild distress HEENT: Atraumatic, PERRLA, EOMI, Mucous membr. moist/pink Neck: Supple, No JVD, No thyromegaly Lungs: Other (DISTANT BS WITH DECREASE AUDIBE WHEEZES) Heart: Regular rate, Regular rhythm Abdomen: Normal bowel sounds, Soft, No tenderness, No masses Extremities: No clubbing, No cyanosis, No edema, Normal pulses Skin: No rashes, No breakdown, No significant lesion Neuro: Normal tone, Sensation intact, Other (DYSPNEA WITH PROLONGED SENTENCES) Psych/Mental Status: Mental status NL, Mood NL, Thoughts/Content NL Results RADIOLOGY: [] EKG: [] Laboratory Tests Test 10/18/24 21:53 10/19/24 05:45 10/19/24 07:38 10/19/24 11:48 Whole Blood Glucose 181 MG/DL (70-110) H 207 MG/DL (70-110) H 272 MG/DL (70-110) H White Blood Count 15.6 K/uL (4.8-10.8) #H Red Blood Count 4.92 MIL/uL (4.50-6.20) Hemoglobin 13.6 g/dL (14.0-18.0) L Hematocrit 40.8 % (42-54) L Mean Corpuscular Volume 82.9 fL (79-99) Mean Corpuscular Hemoglobin 27.6 pg (27.0-33.0) Mean Corpuscular Hemoglobin Concent 33.3 g/dL (32.0-36.0) Red Cell Distribution Width 14.1 % (11.0-15.5) Platelet Count 243 K/uL (130-400) Mean Platelet Volume 9.3 fL (7.5-10.5) Nucleated Red Blood Cells 0.0 % (0.0-0.19) Sodium Level 141 mmol/L (136-145) Potassium Level 3.0 mmol/L (3.5-5.1) *L Chloride Level 103 mmol/L (101-111) Carbon Dioxide Level 29 mmol/L (21-32) Blood Urea Nitrogen 20 mg/dL (7-18) H Creatinine 1.2 mg/dL (0.5-1.3) Glomerular Filtration Rate Calc 71 mL/min (>90) Random Glucose 233 mg/dL (70-105) H Total Calcium 8.7 mg/dL (8.5-10.1) Magnesium Level 1.90 mg/dL (1.80-2.40) Medications Current Medications Albuterol 1 UDVIAL ONCE ONCE IH Last administered on 10/18/24at 10:12; Start 10/18/24 at 09:30; Stop 10/18/24 at 09:31; Status DC Methylprednisolone Sodium Succinate 125 mg ONCE ONCE IVP Last administered on 10/18/24at 09:45; Start 10/18/24 at 09:30; Stop 10/18/24 at 09:31; Status DC Potassium Bicarbonate 50 meq ONCE ONCE PO Last administered on 10/18/24at 10:18; Start 10/18/24 at 10:30; Stop 10/18/24 at 10:31; Status DC Furosemide 40 mg ONCE ONCE IV Last administered on 10/18/24at 10:24; Start 10/18/24 at 10:30; Stop 10/18/24 at 10:31; Status DC Iohexol 35,000 mg STK-MED ONCE IV; Start 10/18/24 at 10:42; Stop 10/18/24 at 10:42; Status DC Acetaminophen 650 mg Q6H PRN PO; Start 10/18/24 at 12:30; Stop 11/17/24 at 12:29 Acetaminophen 650 mg Q4H PRN PO; Start 10/18/24 at 12:30; Stop 11/17/24 at 12:29 Ondansetron HCl 4 mg Q6H PRN IV; Start 10/18/24 at 12:30; Stop 11/17/24 at 12:29 Al Hydroxide/Mg Hydroxide 30 ml Q6H PRN PO; Start 10/18/24 at 12:30; Stop 11/17/24 at 12:29 Lactulose 20 gm BID PRN PO; Start 10/18/24 at 12:30; Stop 11/17/24 at 12:29 Guaifenesin/ Dextromethorphan 10 ml Q4H PRN PO; Start 10/18/24 at 12:30; Stop 11/17/24 at 12:29 Albuterol Sulfate 2.5 mg [id number] PRN IH; Start 10/18/24 at 12:30; Stop 11/17/24 at 12:29 Furosemide 40 mg BID IVP Last administered on 10/18/24at 17:51; Start 10/18/24 at 21:00; Stop 10/18/24 at 18:05; Status DC Enoxaparin Sodium 40 mg DAILY SQ; Start 10/19/24 at 09:00; Stop 10/18/24 at 17:44; Status DC Potassium Chloride 20 meq BID PO; Start 10/18/24 at 21:00; Stop 10/18/24 at 18:05; Status DC Dextrose 50 ml AD PRN IV; Start 10/18/24 at 12:30; Stop 11/17/24 at 12:29 Glucagon 1 mg AD PRN IM; Start 10/18/24 at 12:30; Stop 11/17/24 at 12:29 Potassium Chloride 100 ml @ 100 mls/hr AD PRN IV Last administered on 10/19/24at 06:25; Start 10/18/24 at 12:30; Stop 11/17/24 at 12:29 Potassium Chloride 20 meq AD PRN PO; Start 10/18/24 at 12:30; Stop 11/17/24 at 12:29 Potassium Chloride 20 meq AD PRN PO Last administered on 10/19/24at 06:25; Start 10/18/24 at 12:30; Stop 11/17/24 at 12:29 Magnesium Sulfate 50 ml @ 0 mls/hr PROTOCOL PRN IV; Start 10/18/24 at 12:30; Stop 11/17/24 at 12:29 Albuterol 1 UDVIAL [id number] IH Last administered on 10/19/24at 12:37; Start 10/18/24 at 18:00; Stop 11/17/24 at 17:59 Buspirone HCl 5 mg BID PRN PO; Start 10/18/24 at 13:00; Stop 11/17/24 at 12:59 Carvedilol 25 mg BID PO Last administered on 10/19/24at 09:39; Start 10/18/24 at 21:00; Stop 11/17/24 at 20:59 Amlodipine Besylate 10 mg DAILY PO; Start 10/19/24 at 09:00; Stop 10/18/24 at 17:44; Status DC Home Med (Escitalopram Oxalate 10 MG) DAILY PO; Start 10/19/24 at 09:00; Stop 10/18/24 at 17:45; Status DC Hydralazine HCl 100 mg TID PO Last administered on 10/19/24at 09:32; Start 10/18/24 at 14:00; Stop 11/17/24 at 13:59 Home Med (Minoxidil 10 MG) BID PO; Start 10/18/24 at 21:00; Stop 11/17/24 at 20:59 Atorvastatin Calcium 10 mg HS PO Last administered on 10/18/24at 21:57; Start 10/18/24 at 21:00; Stop 11/17/24 at 20:59 Sacubitril/ Valsartan 1 each BID PO; Start 10/18/24 at 21:00; Stop 10/18/24 at 18:13; Status DC Enoxaparin Sodium 40 mg DAILY SQ Last administered on 10/19/24at 09:39; Start 10/18/24 at 17:44; Stop 11/17/24 at 17:43 Amlodipine Besylate 10 mg DAILY PO Last administered on 10/19/24at 09:31; Start 10/18/24 at 17:44; Stop 11/17/24 at 17:43 Home Med (Escitalopram Oxalate 10 MG) DAILY PO; Start 10/18/24 at 17:44; Stop 11/17/24 at 17:43 Carvedilol 25 mg STK-MED ONCE PO Last administered on 10/18/24at 17:53; Start 10/18/24 at 17:47; Stop 10/18/24 at 17:48; Status DC Furosemide 40 mg STK-MED ONCE .ROUTE Last administered on 10/18/24at 17:52; Start 10/18/24 at 17:48; Stop 10/18/24 at 17:48; Status DC Methylprednisolone Sodium Succinate 125 mg STK-MED ONCE .ROUTE Last administered on 10/18/24at 17:52; Start 10/18/24 at 17:48; Stop 10/18/24 at 17:48; Status DC Sacubitril/ Valsartan 1 each STK-MED ONCE PO Last administered on 10/18/24at 17:53; Start 10/18/24 at 17:48; Stop 10/18/24 at 17:48; Status DC Hydralazine HCl 20 mg Q4H PRN IV; Start 10/18/24 at 18:00; Stop 11/17/24 at 17:59 Nitroglycerin 0.4 mg DAILY TD Last administered on 10/18/24at 21:37; Start 10/18/24 at 18:00; Stop 11/17/24 at 17:59 Furosemide 40 mg Q8H5 IVP Last administered on 10/19/24at 05:52; Start 10/18/24 at 21:00; Stop 11/17/24 at 20:59 Potassium Chloride 20 meq TID PO Last administered on 10/19/24at 09:30; Start 10/18/24 at 21:00; Stop 11/17/24 at 20:59 Methylprednisolone Sodium Succinate 125 mg Q6H IVP Last administered on 10/19/24at 09:31; Start 10/18/24 at 21:00; Stop 11/17/24 at 20:59 Sacubitril/ Valsartan 1 each BID PO Last administered on 10/19/24at 09:29; Start 10/18/24 at 21:00; Stop 11/17/24 at 20:59 Dextrose 50 ml AD PRN IV; Start 10/18/24 at 18:30; Stop 11/17/24 at 18:29 Glucagon 1 mg AD PRN IM; Start 10/18/24 at 18:30; Stop 11/17/24 at 18:29 Insulin Human Regular INSULIN SLIDING SCAL... ACHS SQ Last administered on 10/19/24at 11:56; Start 10/18/24 at 21:00; Stop 11/17/24 at 20:59 Assessment/Plan RADIOLOGY CHEST 1VW FINDINGS: There is stable cardial megaly. There is mild vascular congestion. Lungs are otherwise clear. Mediastinum and bony thorax appear unremarkable. IMPRESSION: Cardiomegaly with vascular congestion consistent with CHF. CT CHEST PE PROTOCOL WWO CONT FINDINGS: Lungs are clear. There are no focal masses or infiltrates. There is cardiomegaly accentuated by a moderate pericardial effusion, the effusion measures 2 cm along the left heart margin. There is no hilar or mediastinal lymphadenopathy. Chest wall structures appear normal as do visualized upper abdominal structures. Contrast outlines normal appearing central pulmonary arteries. There is no CT evidence of PE. The a sending aorta appears normal without aneurysm or dissection. IMPRESSION: 1. There is cardiomegaly, there is also moderate pericardial effusion. 2. No CT evidence of PE. 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) PRESENTED WITH ACUTE ON CHRONIC DIASTOLIC CHF EXACERBATION ACUTE HYPOXIC RESPIRATORY FAILURE MODERATE PERICARDIAL EFFUSION COPD EXACERBATION HYPERTENSIVE URGENCY HYPOKALEMIA PLAN: PATIENT DIURESING WELL SUPPLEMENT POTASSIUM ON BIPAP LAST NIGHT AND ON INTERMITTENT CPAP THIS AM O2 PER NC PRN AND CURRENTLY 96% ON ROOM AIR CONT TO ADJUST BP MEDS FOR BETTER CONTROL HAS MULTIPLE MEDICATIONS FOR BP CONTROL AND WILL ALSO HOLD ANY OF THEM FOR SBP < 120 AND TO PREVENT HYPOTENSION APPRECIATE CARDIOLOGY INPUT AND PENDING PERICARDIAL DRAINAGE CONT WEAN NEBS AND WEAN STEROIDS GLUCOMETER CHECKS WITH ADDITIONAL INSULIN COVERAGE NEEDED LOVENOX FOR DVT PROPHYLAXIS PPI FOR STRESS ULCER PROPHYLAXIS FU 2 D ECHO DONE AND FINAL IMPRESSION PENDING CR TABARES MD Oct 19, 2024 12:46
--- NOTE | 2024-10-19 15:44 | HMCSR ---
APPROVED REPORT EXAM: Two-dimensional and M-mode echocardiogram with Doppler and color Doppler. INDICATION ICD: I31.3 Pericardial effusion 2D Dimensions RVDd5.9 cmLVEF(%)74.7 (>50%)LVED Vol(simp.)99.8 mL IVSd1.8 (0.7-1.1cm)FS(%)44 %LVES Vol(simp.)24.2 mL LVDd4.6 (3.8-5.6cm)LA (2D)5.3 (1.6-4.0cm)LVEF(%, simp.)76 % PWd2.1 (0.7-1.1cm)Ao Root(2D)3.9 (2.0-3.7cm)LA ESV INDEX (4CH)61.90 mL/m2 IVSs2.0 cmLVOT diam2.3 (1.8-2.4cm)LA ESV INDEX (2CH)41.20 mL/m2 LVDs2.6 (2.5-4.0cm)LA ESV INDEX (BP)56.20 mL/m2 PWs2.2 cm M-Mode Dimensions EPSS0.6 cm LA (MM)5.4 (1.6-4.0cm) Ao Root(MM)3.6 (2.0-3.7cm) Aortic Valve AoV VTI0.4 mAo Mean GR8.0 mmHgLVOT VTI0.20 m EDY (VMAX)2.3 cm2AVA (VTI) 2.3 cm2 Mitral Valve MV E Vmax94.1 cm/sDECEL Ttlt278 ms MV A Vmax81.0 cm/sP 1/2 T44 ms E/A ratio1.2MVA (PHT)5.0 cm2 Pulmonary Valve PV VTI0.38 mPV Mean GR7 mmHg Tricuspid Valve TR Vmax2.2 m/sRAP (EST) 8 [id number] mmHg TR Peak GR20.1 mmHg Left Ventricle Left ventricular cavity size is normal. Severe concentric left ventricular hypertrophy. LVEF is >65%. The LV diastolic function was unable to be assessed Right Ventricle The right ventricle is severely dilated. The right ventricular systolic function is normal. Atria The left atrium is severely dilated. The right atrium is moderately to severely dilated. Aortic Valve The aortic valve is normal in structure and function. No aortic regurgitation is present. There is no aortic valvular stenosis. Mitral Valve Mitral valve leaflets open well. There is mild mitral valve regurgitation noted. There is no mitral v alve stenosis. Tricuspid Valve The tricuspid valve is normal in structure and function. There is trace of tricuspid valve regurgitat ion noted. Pulmonic Valve The pulmonary valve is normal in structure and function. There is no pulmonic valvular regurgitation. Great Vessels The aortic root is normal in size. IVC is dilated and collapses >50% with inspiration. Pericardium Large pericardial effusion. No RV diastolic collapse. Other Information Quality : Technically difficult due to body habitus Conclusion Left ventricular cavity size is normal. Severe concentric left ventricular hypertrophy. LVEF is >65%. The LV diastolic function was unable to be assessed The right ventricle is severely dilated. The right ventricular systolic function is normal. The left atrium is severely dilated. The right atrium is moderately to severely dilated. There is mild mitral valve regurgitation noted. IVC is dilated and collapses >50% with inspiration. Large pericardial effusion. No RV diastolic collapse.
[2024-10-19] MEDS: IpraTROPium/alBUTERol SULFATE 3 ML SOLUTION IH SCH (18:31)
[2024-10-19] MEDS: Solu-medROL 125MG VIAL IVP SCH (19:20)
[2024-10-20] VITALS (12 sets, daily range): BP systolic 110–196; BP diastolic 58–86; PULSE 54–81; RESP 18–22; TEMP 97.4–98.9; O2SAT 94–96
--- NOTE | 2024-10-20 00:42 | CONS ---
REASON FOR CONSULTATION: To evaluate pericardial effusion. HISTORY OF PRESENT ILLNESS: The patient is a middle-aged gentleman with a history of moderate obesity who tells me that he has had a stress test done about a couple years ago, at which time it was normal. Over the last few weeks, he has developed progressive shortness of breath to a point where he cannot lie flat or walking anymore. CT scan of the chest showed pericardial effusion. I did a 2D echo at bedside and this shows a large pericardial effusion, more so posteriorly than anteriorly associated with Doppler evidence of tamponade. REVIEW OF SYSTEMS: GENERAL: No history of weight loss or weight gain. LUNGS: No history of cough or sputum. CARDIOVASCULAR: As above. HOME MEDICATIONS: Listed in the chart. ALLERGIES: No known drug allergies. SOCIAL HISTORY: Denies smoking, alcohol or drugs. FAMILY HISTORY: Noncontributory. PHYSICAL EXAMINATION: GENERAL: Middle-aged male, alert and oriented x 3. No pallor, no cyanosis, no jaundice, no lymphadenopathy, no pitting edema. VITAL SIGNS: Heart rate is 81, blood pressure is 150/70. HEENT: Normocephalic, atraumatic. Pupils equal, react to light. NECK: Supple. No thyromegaly. No carotid bruit or no masses. LUNGS: Clear to percussion and auscultation. CARDIOVASCULAR: Peripheral pulses are diminished. No groin bruit. No abdominal bruit. No carotid bruit. No JVD. S1, S2 is heard. Heart sounds are somewhat distant. ABDOMEN: Benign. CENTRAL NERVOUS SYSTEM: Nonfocal exam. EXTREMITIES: No pitting edema. FINAL IMPRESSION: * Moderate to large pericardial effusion with Doppler evidence of tamponade. * Hypertension with moderate left ventricular hypertrophy. * Shortness of breath secondary to pericardial effusion. RECOMMENDATIONS: I have consulted Dr. Rose to do a window on him. The patient is quite obese. I do not feel safe ____ with needle to do pericardiocentesis and most of the fluid is more so posteriorly than anteriorly. Further recommendations will be based on outcome of CT surgery. TID: [id number] RECEIPT: [id number]
[2024-10-20 06:43] LABS: HEMATOCRIT 44.2 % (42-54); MEAN CORPUSCULAR HEMOGLOBIN 27.5 pg (27.0-33.0); MEAN CORPUSCULAR HGB CONC 31.9 g/dL (32.0-36.0); MEAN CORPUSCULAR VOLUME 86.2 fL (79-99); RED BLOOD CELL COUNT(AUTO) 5.13 MIL/uL (4.50-6.20); RED CELL DISTRIBUTION WIDTH 14.3 % (11.0-15.5); WHITE BLOOD COUNT (AUTO) 18.2 K/uL (4.8-10.8)
[2024-10-20 06:57] LABS: CREATININE 1.1 mg/dL (0.5-1.3); POTASSIUM 3.4 mmol/L (3.5-5.1)
[2024-10-20 10:04] LABS: SARS-CoV-2, RNA, NAAT NEGATIVE SARS CoV-2 (NEGATIVE)
[2024-10-20 10:08] LABS: INFLUENZA TYPE A Negative For Type A (NEGATIVE); INFLUENZA TYPE B Negative For Type B (NEGATIVE)
--- NOTE | 2024-10-20 11:13 | PN ---
SUBJECTIVE: The patient is a middle-aged male with severe obesity, hypertension, hyperlipidemia, obstructive sleep apnea and past tobacco abuser. The patient presented to the Emergency Room with progressive shortness of breath over the last couple of weeks. CT scan of his chest showed bilateral infiltrates and a pericardial effusion. Cardiology performed an echocardiogram, which revealed a moderate to large pericardial effusion, mostly posterior, but there was a collection along the right side of the heart. There was no evidence of RV collapse, however, there was inspiratory collapse of the IVC. Cardiovascular Surgery was consulted for pericardial drainage of the pericardial effusion. OBJECTIVE: VITAL SIGNS: The patient's vital signs reveal temperature 97.9, pulse is 81, respirations 20, blood pressure is 151/63, oxygen saturations are 94%. HEENT: Reveals to be normocephalic, atraumatic. His complexion is laura. He has nasal CPAP. GENERAL: He is lying flat, breathing comfortably. HEART: S1, S2. LUNGS: Unlabored, but he has rales bilaterally. ABDOMEN: Reveals severe obesity. LABORATORY DATA: His white cell count is 18,200. His creatinine is 1.1. His ABGs revealed pH of 7.45, pCO2 of 35, pO2 of 67, bicarbonate is 24, oxygen saturation 94%. DIAGNOSTIC STUDIES: His chest x-ray shows diffuse infiltrates, infectious versus congestion. ASSESSMENT AND PLAN: * Pericardial effusion. We will plan pericardial window tomorrow morning. * Respiratory insufficiency. Check respiratory viruses (COVID and influenza). Agree with antibiotics. Once his pericardial effusion is drained, he may need diuretics. * Deep venous thrombosis prophylaxis. Lovenox subcu daily. Discontinue on the day of surgery. TID: [id number] RECEIPT: [id number]
--- NOTE | 2024-10-20 14:34 | NUR ---
DCP-home Pt awake, alert, oriented lives with father Alphonso Del Rosario [phone]. Does not have any medical equipment aside of CPAP. 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 Anticipates discharge for home. Addendum: 10/20/24 at 1441 by HADLEY CHAU RN CM Amended: Links added.
--- NOTE | 2024-10-20 15:29 | PN ---
Subjective Review of Systems PROGRESS NOTE Date of Visit: Oct 20, 2024 Time of Visit: 15:28 Events since last encounter [place] WITH EXERTION Subjective PATIENT PLACED ON BIPAP OVERNIGHT AND THIS MORNING WEANED OFF AND USING HIS OWN CPAP PRN General: No Fever, No Chills, No Night Sweats, No Fatigue, No Malaise, No Appetite, No Other HEENT: No Head Aches, No Visual Changes, No Eye Pain, No Ear Pain, No Dysphasia, No Sinus Congestion, No Post Nasal Drip, No Sore Throat, No Other Pulmonary: Dyspnea; No Cough, No Pleuritic Chest Pain, No Other Cardiovascular: No: Chest Pain, Palpitations, Orthopnea, Paroxysmal Noc. Dyspnea, Edema, Lt Headedness, Other Gastrointestinal: No: Nausea, Vomiting, Abdominal Pain, Diarrhea, Constipation, Melena, Hematochezia, Other Genitourinary: No Dysuria, No Frequency, No Incontinence, No Hematuria, No Retention, No Other Musculoskeletal: No: other, neck pain, shoulder pain, arm pain, back pain, hand pain, leg pain, foot pain Skin: No Urticaria, No Rash, No Other Neurological: No: Weakness, Numbness, Incoordination, Change in speech, Confusion, Seizures, Other Objective Vitals and I/O Vital Sign (Last 24 Hours) 10/20/24 10/20/24 08:50 12:28 Temp 98.2 Pulse 63 Resp 19 B/P (MAP) 196/86 Pulse Ox 95 O2 Delivery Room Air O2 Flow Rate 0 FiO2 21 Intake & Output (last 24hrs) 10/19/24 10/19/24 10/20/24 15:00 23:00 07:00 Intake Total 0 ml Output Total 300 ml 1175 ml Balance -300 ml -1175 ml General: Alert, Oriented X3, Cooperative, mild distress HEENT: Atraumatic, PERRLA, EOMI, Mucous membr. moist/pink Neck: Supple, No JVD, No thyromegaly Lungs: Other (DISTANT BS WITH DECREASE AUDIBE WHEEZES) Heart: Regular rate, Regular rhythm Abdomen: Normal bowel sounds, Soft, No tenderness, No masses Extremities: No clubbing, No cyanosis, No edema, Normal pulses Skin: No rashes, No breakdown, No significant lesion Neuro: Normal tone, Sensation intact, Other (DYSPNEA WITH PROLONGED SENTENCES) Psych/Mental Status: Mental status NL, Mood NL, Thoughts/Content NL Results RADIOLOGY: [] EKG: [] Laboratory Tests Test 10/19/24 15:46 10/20/24 05:24 10/20/24 05:48 10/20/24 09:30 Whole Blood Glucose 181 MG/DL (70-110) H 167 MG/DL (70-110) H White Blood Count 18.2 K/uL (4.8-10.8) H Red Blood Count 5.13 MIL/uL (4.50-6.20) Hemoglobin 14.1 g/dL (14.0-18.0) Hematocrit 44.2 % (42-54) Mean Corpuscular Volume 86.2 fL (79-99) Mean Corpuscular Hemoglobin 27.5 pg (27.0-33.0) Mean Corpuscular Hemoglobin Concent 31.9 g/dL (32.0-36.0) L Red Cell Distribution Width 14.3 % (11.0-15.5) Platelet Count 276 K/uL (130-400) Mean Platelet Volume 10.0 fL (7.5-10.5) Nucleated Red Blood Cells 0.0 % (0.0-0.19) Sodium Level 144 mmol/L (136-145) Potassium Level 3.4 mmol/L (3.5-5.1) L Chloride Level 105 mmol/L (101-111) Carbon Dioxide Level 35 mmol/L (21-32) H Blood Urea Nitrogen 18 mg/dL (7-18) Creatinine 1.1 mg/dL (0.5-1.3) Glomerular Filtration Rate Calc 79 mL/min (>90) Random Glucose 162 mg/dL (70-105) H Total Calcium 8.7 mg/dL (8.5-10.1) Magnesium Level 2.40 mg/dL (1.80-2.40) Influenza Type A Antigen Negative For Type A Influenza Type B Antigen Negative For Type B SARS-CoV-2, RNA, NAAT NEGATIVE SARS CoV-2 Test 10/20/24 11:47 Whole Blood Glucose 215 MG/DL (70-110) H Medications Current Medications Albuterol 1 UDVIAL ONCE ONCE IH Last administered on 10/18/24at 10:12; Start 10/18/24 at 09:30; Stop 10/18/24 at 09:31; Status DC Methylprednisolone Sodium Succinate 125 mg ONCE ONCE IVP Last administered on 10/18/24at 09:45; Start 10/18/24 at 09:30; Stop 10/18/24 at 09:31; Status DC Potassium Bicarbonate 50 meq ONCE ONCE PO Last administered on 10/18/24at 10:18; Start 10/18/24 at 10:30; Stop 10/18/24 at 10:31; Status DC Furosemide 40 mg ONCE ONCE IV Last administered on 10/18/24at 10:24; Start 10/18/24 at 10:30; Stop 10/18/24 at 10:31; Status DC Iohexol 35,000 mg STK-MED ONCE IV; Start 10/18/24 at 10:42; Stop 10/18/24 at 10:42; Status DC Acetaminophen 650 mg Q6H PRN PO; Start 10/18/24 at 12:30; Stop 11/17/24 at 12:29 Acetaminophen 650 mg Q4H PRN PO; Start 10/18/24 at 12:30; Stop 11/17/24 at 12:29 Ondansetron HCl 4 mg Q6H PRN IV; Start 10/18/24 at 12:30; Stop 11/17/24 at 12:29 Al Hydroxide/Mg Hydroxide 30 ml Q6H PRN PO; Start 10/18/24 at 12:30; Stop 11/17/24 at 12:29 Lactulose 20 gm BID PRN PO; Start 10/18/24 at 12:30; Stop 11/17/24 at 12:29 Guaifenesin/ Dextromethorphan 10 ml Q4H PRN PO; Start 10/18/24 at 12:30; Stop 11/17/24 at 12:29 Albuterol Sulfate 2.5 mg [id number] PRN IH; Start 10/18/24 at 12:30; Stop 11/17 at 12:29 Furosemide 40 mg BID IVP Last administered on 10/18/24at 17:51; Start 10/18/24 at 21:00; Stop 10/18/24 at 18:05; Status DC Enoxaparin Sodium 40 mg DAILY SQ; Start 10/19/24 at 09:00; Stop 10/18/24 at 17:44; Status DC Potassium Chloride 20 meq BID PO; Start 10/18/24 at 21:00; Stop 10/18/24 at 18:05; Status DC Dextrose 50 ml AD PRN IV; Start 10/18/24 at 12:30; Stop 11/17/24 at 12:29 Glucagon 1 mg AD PRN IM; Start 10/18/24 at 12:30; Stop 10/19/24 at 12:49; Status DC Potassium Chloride 100 ml @ 100 mls/hr AD PRN IV Last administered on 10/19/24at 06:25; Start 10/18/24 at 12:30; Stop 11/17/24 at 12:29 Potassium Chloride 20 meq AD PRN PO; Start 10/18/24 at 12:30; Stop 11/17/24 at 12:29 Potassium Chloride 20 meq AD PRN PO Last administered on 10/19/24at 06:25; Start 10/18/24 at 12:30; Stop 11/17/24 at 12:29 Magnesium Sulfate 50 ml @ 0 mls/hr PROTOCOL PRN IV; Start 10/18/24 at 12:30; Stop 11/17/24 at 12:29 Albuterol 1 UDVIAL [id number] IH Last administered on 10/19/24at 12:37; Start 10/18/24 at 18:00; Stop 10/19/24 at 12:49; Status DC Buspirone HCl 5 mg BID PRN PO; Start 10/18/24 at 13:00; Stop 11/17/24 at 12:59 Carvedilol 25 mg BID PO Last administered on 10/20/24at 12:19; Start 10/18/24 at 21:00; Stop 11/17/24 at 20:59 Amlodipine Besylate 10 mg DAILY PO; Start 10/19/24 at 09:00; Stop 10/18/24 at 17:44; Status DC Home Med (Escitalopram Oxalate 10 MG) DAILY PO; Start 10/19/24 at 09:00; Stop 10/18/24 at 17:45; Status DC Hydralazine HCl 100 mg TID PO Last administered on 10/20/24at 12:20; Start 10/18/24 at 14:00; Stop 11/17/24 at 13:59 Home Med (Minoxidil 10 MG) BID PO; Start 10/18/24 at 21:00; Stop 11/17/24 at 20:59 Atorvastatin Calcium 10 mg HS PO Last administered on 10/19/24at 19:21; Start 10/18/24 at 21:00; Stop 11/17/24 at 20:59 Sacubitril/ Valsartan 1 each BID PO; Start 10/18/24 at 21:00; Stop 10/18/24 at 18:13; Status DC Enoxaparin Sodium 40 mg DAILY SQ Last administered on 10/20/24at 09:19; Start 10/18/24 at 17:44; Stop 11/17/24 at 17:43 Amlodipine Besylate 10 mg DAILY PO Last administered on 10/19/24at 09:31; Start 10/18/24 at 17:44; Stop 11/17/24 at 17:43 Home Med (Escitalopram Oxalate 10 MG) DAILY PO; Start 10/18/24 at 17:44; Stop 11/17/24 at 17:43 Carvedilol 25 mg STK-MED ONCE PO Last administered on 10/18/24at 17:53; Start 10/18/24 at 17:47; Stop 10/18/24 at 17:48; Status DC Furosemide 40 mg STK-MED ONCE .ROUTE Last administered on 10/18/24at 17:52; Start 10/18/24 at 17:48; Stop 10/18/24 at 17:48; Status DC Methylprednisolone Sodium Succinate 125 mg STK-MED ONCE .ROUTE Last administered on 10/18/24at 17:52; Start 10/18/24 at 17:48; Stop 10/18/24 at 17:48; Status DC Sacubitril/ Valsartan 1 each STK-MED ONCE PO Last administered on 10/18/24at 17:53; Start 10/18/24 at 17:48; Stop 10/18/24 at 17:48; Status DC Hydralazine HCl 20 mg Q4H PRN IV; Start 10/18/24 at 18:00; Stop 11/17/24 at 17:59 Nitroglycerin 0.4 mg DAILY TD Last administered on 10/18/24at 21:37; Start 10/18/24 at 18:00; Stop 11/17/24 at 17:59 Furosemide 40 mg Q8H5 IVP Last administered on 10/20/24at 12:20; Start 10/18/24 at 21:00; Stop 11/17/24 at 20:59 Potassium Chloride 20 meq TID PO Last administered on 10/20/24at 12:19; Start 10/18/24 at 21:00; Stop 11/17/24 at 20:59 Methylprednisolone Sodium Succinate 125 mg Q6H IVP Last administered on 10/19/24at 09:31; Start 10/18/24 at 21:00; Stop 10/19/24 at 12:48; Status DC Sacubitril/ Valsartan 1 each BID PO Last administered on 10/20/24at 12:20; Start 10/18/24 at 21:00; Stop 11/17/24 at 20:59 Dextrose 50 ml AD PRN IV; Start 10/18/24 at 18:30; Stop 10/19/24 at 12:49; Status DC Glucagon 1 mg AD PRN IM; Start 10/18/24 at 18:30; Stop 11/17/24 at 18:29 Insulin Human Regular INSULIN SLIDING SCAL... ACHS SQ Last administered on 10/20/24at 12:26; Start 10/18/24 at 21:00; Stop 11/17/24 at 20:59 Methylprednisolone Sodium Succinate 125 mg Q12H9 IVP Last administered on 10/20/24at 09:17; Start 10/19/24 at 21:00; Stop 11/17/24 at 20:59 Albuterol 1 UDVIAL TIDAC IH Last administered on 10/20/24at 11:18; Start 10/19/24 at 17:00; Stop 11/17/24 at 17:59 Assessment/Plan RADIOLOGY CHEST 1VW FINDINGS: There is stable cardial megaly. There is mild vascular congestion. Lungs are otherwise clear. Mediastinum and bony thorax appear unremarkable. IMPRESSION: Cardiomegaly with vascular congestion consistent with CHF. CT CHEST PE PROTOCOL WWO CONT FINDINGS: Lungs are clear. There are no focal masses or infiltrates. There is cardiomegaly accentuated by a moderate pericardial effusion, the effusion measures 2 cm along the left heart margin. There is no hilar or mediastinal lymphadenopathy. Chest wall structures appear normal as do visualized upper abdominal structures. Contrast outlines normal appearing central pulmonary arteries. There is no CT evidence of PE. The a sending aorta appears normal without aneurysm or dissection. IMPRESSION: 1. There is cardiomegaly, there is also moderate pericardial effusion. 2. No CT evidence of PE. Left Ventricle Left ventricular cavity size is normal. Severe concentric left ventricular hypertrophy. LVEF is >65%. The LV diastolic function was unable to be assessed Right Ventricle The right ventricle is severely dilated. The right ventricular systolic function is normal. Atria The left atrium is severely dilated. The right atrium is moderately to severely dilated. Aortic Valve The aortic valve is normal in structure and function. No aortic regurgitation is present. There is no aortic valvular stenosis. Mitral Valve Mitral valve leaflets open well. There is mild mitral valve regurgitation noted. There is no mitral valve stenosis. Tricuspid Valve The tricuspid valve is normal in structure and function. There is trace of tricuspid valve regurgitation noted. Pulmonic Valve The pulmonary valve is normal in structure and function. There is no pulmonic valvular regurgitation. Great Vessels The aortic root is normal in size. IVC is dilated and collapses >50% with inspiration. Pericardium Large pericardial effusion. No RV diastolic collapse. Other Information Quality : Technically difficult due to body habitus Conclusion Left ventricular cavity size is normal. Severe concentric left ventricular hypertrophy. LVEF is >65%. The LV diastolic function was unable to be assessed The right ventricle is severely dilated. The right ventricular systolic function is normal. The left atrium is severely dilated. The right atrium is moderately to severely dilated. There is mild mitral valve regurgitation noted. IVC is dilated and collapses >50% with inspiration. Large pericardial effusion. No RV diastolic collapse. 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) PRESENTED WITH ACUTE ON CHRONIC DIASTOLIC CHF EXACERBATION ACUTE HYPOXIC RESPIRATORY FAILURE LARGE PERICARDIAL EFFUSION BY ECHO WITH EF 65% COPD EX HYPERTENSIVE URGENCY HYPOKALEMIA PLAN: APPRECIATE CARDIOLOGY INPUT DUE TO BODY HABITUS WILL NEED A PERICARDIAL WINDOW CVS CONSULTED AND PENDING FOR TOMORROW CONT DIURETICS CONT SUPPLEMENT POTASSIUM CONT CPAP QHS AND PRN RESPIRATORY STATUS STABLE CONT TO ADJUST BP MEDS FOR BP CONTROL AND TO PREVENT HYPOTENSION WEANING OFF STEROIDS MONITOR GLUCOMETER CHECKS WITH ADDITIONAL INSULIN COVERAGE NEEDED LOVENOX FOR DVT PROPHYLAXIS PPI FOR STRESS ULCER PROPHYLAXIS CONTINUE MONITORING ON TELEMETRY CR TABARES MD Oct 20, 2024 15:29
[2024-10-20] MEDS: hydrALAZine 20MG/ML VIAL IV PRN (16:22)
[2024-10-21] VITALS (20 sets, daily range): BP systolic 133–178; BP diastolic 55–82; PULSE 53–70; RESP 12–22; TEMP 97.8–98.9; O2SAT 95–98
[2024-10-21 05:49] LABS: HEMATOCRIT 45.5 % (42-54); MEAN CORPUSCULAR HEMOGLOBIN 27.9 pg (27.0-33.0); MEAN CORPUSCULAR HGB CONC 32.7 g/dL (32.0-36.0); MEAN CORPUSCULAR VOLUME 85.2 fL (79-99); RED BLOOD CELL COUNT(AUTO) 5.34 MIL/uL (4.50-6.20); RED CELL DISTRIBUTION WIDTH 14.1 % (11.0-15.5); WHITE BLOOD COUNT (AUTO) 15.2 K/uL (4.8-10.8)
[2024-10-21 06:06] LABS: POTASSIUM 3.1 mmol/L (3.5-5.1)
[2024-10-21 06:12] LABS: INR 1.04 (0.85-1.15); PARTIAL THROMBOPLASTIN TIME 24.8 SEC (26.3-35.5)
--- NOTE | 2024-10-21 06:41 | NUR ---
nursing note paged to get NPO order for potassium coverage.pending call back
--- NOTE | 2024-10-21 06:49 | NUR ---
nursing note pt left for surgery
--- NOTE | 2024-10-21 06:53 | NUR ---
nursing note Mervin Carmona called back and stated to order NPO protocol for pt's K 3.1
[2024-10-21] MEDS ORDERED: PoTASSium chloRIDE 20MEQ/100ML 100 ML IV PRN (07:00)
[2024-10-21] MEDS: 0.9%NACL 1000ML 1,000 ML IV ONE (07:37)
[2024-10-21] MEDS ORDERED: LIDOCAINE PF 100MG/5ML (2%) SYRINGE 5ML ONE (07:57)
[2024-10-21] MEDS ORDERED: ondanSETRON 4MG INJ ONE (07:57)
[2024-10-21] MEDS ORDERED: dexaMETHasone SOD PHOSPHATE 10MG/ML 1ML VIAL ONE (07:57)
[2024-10-21] MEDS ORDERED: SUCCINYLCHOLINE CHLORIDE 20 MG/ML 10 ML VIAL ONE (07:58)
[2024-10-21] MEDS ORDERED: rocuRONium bROMide 10MG/1ML 5ML VL ONE (07:58)
[2024-10-21] MEDS ORDERED: proPOFol 10 MG/ML 20ML VIAL IV ONE (07:58)
[2024-10-21] MEDS ORDERED: MIDAZOLAM HCL 1 MG/ML 2ML VIAL ONE ×2 (07:59→08:34)
[2024-10-21] MEDS ORDERED: FENTanyl CITRate PF 50 MCG/1 ML 2ML VIAL ONE ×3 (08:10→09:16)
[2024-10-21] MEDS: ceFAZolin SODIUM 2 GM VIAL IVPB ONE (08:30)
[2024-10-21] MEDS ORDERED: traMADol HCL 50 MG TABLET PO PRN (09:00)
[2024-10-21] MEDS ORDERED: acetaMINOPHEN 325 MG TAB PO PRN (09:00)
[2024-10-21] MEDS ORDERED: GLYCOPYRROLATE 0.2 MG/ML 5 ML VIAL ONE (09:04)
[2024-10-21] MEDS ORDERED: NEOSTIGMINE METHYLSULFATE 1MG/ML IV ONE ×2 (09:04→09:05)
[2024-10-21] MEDS: traMADol HCL 50 MG TABLET PO PRN (09:59)
[2024-10-21 10:37] LABS: APPEARANCE BODY FLUID TURBID (CLEAR); COLOR,BODY FLUID ORANGE (LT YELLOW); SPECIMENTYPE,BODY FLUID PERICARDIAL; TOTAL VOLUME,BODY FLUID 90 mL
[2024-10-21] MEDS: HYDROcodone/APAP 5/325 1 TAB TABLET PO PRN (10:54)
[2024-10-21 11:03] LABS: BODY FLUID RBC 6268 /cu. mm.; BODY FLUID WBC 64 /cu. mm.
[2024-10-21 11:05] LABS: AMYLASE,BODY FLUID 15 U/L; GLUCOSE,BODY FLUID 189 mg/dL (1-40); LIPASE,BODY FLUID 7 U/L; TOTAL PROTEIN,BODY FLUID 3.9 g/dL
[2024-10-21] MEDS: PANTOPrazole 40 MG TAB DR PO SCH (11:32)
[2024-10-21 13:10] LABS: BF LYMPHOCYTE 34 %; BF TOTAL CELLS COUNTED 50
[2024-10-21] MEDS: morPHINE 4 MG SYG IVP PRN (13:21)
[2024-10-21] MEDS: acetaMINOPHEN 325 MG TAB PO PRN (16:26)
[2024-10-21] MEDS: ceFAZolin SODIUM 2 GM VIAL IVPB SCH (17:04)
--- NOTE | 2024-10-21 17:12 | HMCIMG ---
CHEST 1VW HISTORY: Status post pericardial window COMPARISON: None FINDINGS: A frontal projection of the chest was obtained. There are bilateral pulmonary infiltrates suggestive of pulmonary vascular congestion with possible superimposed pneumonitis. The heart is borderline enlarged. Degenerative changes are seen. No evidence of aortic calcification is seen. IMPRESSION: 1. Bilateral pulmonary infiltrates are seen suggestive of pulmonary vascular congestion with possible superimposed pneumonitis.
[2024-10-21] MEDS: IpraTROPium/alBUTERol SULFATE 3 ML SOLUTION IH ONE (19:35)
--- NOTE | 2024-10-21 20:32 | OP ---
DATE OF PROCEDURE: 10/21/2024 PREOPERATIVE DIAGNOSIS: Pericardial effusion. POSTOPERATIVE DIAGNOSIS: Pericardial effusion. PROCEDURE PERFORMED: Pericardial window. OPERATING SURGEON: Noe Rose MD EYE SPECIALIST: Jeanne Ford MD ANESTHESIOLOGIST: Dr. Ureña TYPE OF ANESTHESIA: General endotracheal anesthesia. BRIEF HISTORY: The patient is a 54-year-old male with obesity and sleep apnea, who had been having worsening and progressive shortness of breath over the last month. The patient over the last couple of days that progressed to the point where he cannot do much due to difficulties breathing. The patient was evaluated in the Emergency Room. A CT scan of his chest showed a moderate to large pericardial effusion. An echocardiogram showed collapse of the IVC on inspiration and early tamponade. He presents now for a pericardial window. FINDINGS: The patient had 700 mL of clear pericardial fluid. The pericardium did not appear inflamed. The fluid was under pressure. DESCRIPTION OF PROCEDURE: The patient was brought to the operating room and placed on the operating table in supine position. He was prepped and draped. With the surgeon ready to cut, the patient was given general endotracheal anesthesia. A longitudinal incision was then made over the xiphoid. The xiphoid was excised and the pericardium was cleared of epicardial fat. The pericardium was then entered with electrocautery and spread with a tonsil. A 700 mL of fluid was suctioned from the pericardium. His fluid was sent to the lab and pathology for studies. A piece of pericardium was excised and the pericardium was then cut into the right pleural space. A 24-[place] drain was placed with its tip in the right pleural space and its body in the pericardium. It was secured to the lower end of the incision with silk suture. The midline fascia was then closed with running layers of Vicryl suture. Subcutaneous tissue was closed with running layers of Vicryl suture and skin was closed using a running intracuticular Monocryl stitch. The wounds were cleaned and dried, covered with bandages and the patient was undraped, extubated and taken to the ICU in critical but stable condition. TID: [id number] RECEIPT: [id number]
--- NOTE | 2024-10-21 22:42 | PN ---
Subjective Review of Systems PROGRESS NOTE Date of Visit: Oct 21, 2024 Time of Visit: 22:31 Events since last encounter PATIENT RESTING IN BED Subjective RESTING POST OP General: No Fever, No Chills, No Night Sweats, No Fatigue, No Malaise, No Appetite, No Other HEENT: No Head Aches, No Visual Changes, No Eye Pain, No Ear Pain, No Dysphasia, No Sinus Congestion, No Post Nasal Drip, No Sore Throat, No Other Pulmonary: No Dyspnea, No Cough, No Pleuritic Chest Pain, No Other Cardiovascular: Chest Pain (POST OP); No: Palpitations, Orthopnea, Paroxysmal Noc. Dyspnea, Edema, Lt Headedness, Other Gastrointestinal: No: Nausea, Vomiting, Abdominal Pain, Diarrhea, Constipation, Melena, Hematochezia, Other Genitourinary: No Dysuria, No Frequency, No Incontinence, No Hematuria, No Retention, No Other Musculoskeletal: No: other, neck pain, shoulder pain, arm pain, back pain, hand pain, leg pain, foot pain Skin: No Urticaria, No Rash, No Other Neurological: No: Weakness, Numbness, Incoordination, Change in speech, Confusion, Seizures, Other Objective Vitals and I/O Vital Sign (Last 24 Hours) 10/21/24 10/21/24 10/21/24 12:00 19:36 20:55 Temp 99.0 Pulse 55 Resp 20 B/P (MAP) 150/71 Intake & Output (last 24hrs) 10/20/24 10/20/24 10/21/24 15:00 23:00 07:00 Intake Total 350 ml 0 ml Output Total 800 ml 950 ml Balance -450 ml -950 ml General: Alert, Oriented X3, Cooperative, mild distress HEENT: Atraumatic, PERRLA, EOMI, Mucous membr. moist/pink Neck: Supple, No JVD, No thyromegaly Lungs: Other (DISTANT BS WITH DECREASE AUDIBE WHEEZES) Heart: Regular rate, Regular rhythm Abdomen: Normal bowel sounds, Soft, No tenderness, No masses Extremities: No clubbing, No cyanosis, No edema, Normal pulses Skin: No rashes, No breakdown, No significant lesion Neuro: Normal tone, Sensation intact, Other (DYSPNEA WITH PROLONGED SENTENCES) Psych/Mental Status: Mental status NL, Mood NL, Thoughts/Content NL Results RADIOLOGY: [] EKG: [] Laboratory Tests Test 10/21/24 05:11 10/21/24 05:17 10/21/24 08:55 10/21/24 11:51 White Blood Count 15.2 K/uL (4.8-10.8) H Red Blood Count 5.34 MIL/uL (4.50-6.20) Hemoglobin 14.9 g/dL (14.0-18.0) Hematocrit 45.5 % (42-54) Mean Corpuscular Volume 85.2 fL (79-99) Mean Corpuscular Hemoglobin 27.9 pg (27.0-33.0) Mean Corpuscular Hemoglobin Concent 32.7 g/dL (32.0-36.0) Red Cell Distribution Width 14.1 % (11.0-15.5) Platelet Count 261 K/uL (130-400) Mean Platelet Volume 9.9 fL (7.5-10.5) Nucleated Red Blood Cells 0.0 % (0.0-0.19) Prothrombin Time 11.0 SEC (9.6-11.6) Prothromb Time International Ratio 1.04 (0.85-1.15) Activated Partial Thromboplast Time 24.8 SEC (26.3-35.5) L Sodium Level 143 mmol/L (136-145) Potassium Level 3.1 mmol/L (3.5-5.1) L Chloride Level 105 mmol/L (101-111) Carbon Dioxide Level 33 mmol/L (21-32) H Blood Urea Nitrogen 20 mg/dL (7-18) H Creatinine 1.0 mg/dL (0.5-1.3) Glomerular Filtration Rate Calc 89 mL/min (>90) Random Glucose 133 mg/dL (70-105) H Total Calcium 8.4 mg/dL (8.5-10.1) L Whole Blood Glucose 132 MG/DL (70-110) #H 129 MG/DL (70-110) H Body Fluid Source PERICARDIAL Body Fluid Volume 90 mL Body Fluid Color ORANGE (LT YELLOW) H Body Fluid pH 8.0 Body Fluid Supernatant Appearance TURBID (CLEAR) H Body Fluid WBC 64 /cu. mm. Body Fluid RBC 6268 /cu. mm. Body Fluid Neutrophils 32.0 % Body Fluid Lymphocytes 34 % Body Fluid Glucose 189 mg/dL (1-40) H Body Fluid Total Protein 3.9 g/dL Body Fluid Lactate Dehydrogenase 171 U/L Body Fluid Amylase 15 U/L Body Fluid Lipase 7 U/L Test 10/21/24 16:34 10/21/24 20:51 Whole Blood Glucose 144 MG/DL (70-110) H 126 MG/DL (70-110) H Medications Current Medications Albuterol 1 UDVIAL ONCE ONCE IH Last administered on 10/18/24at 10:12; Start 10/18/24 at 09:30; Stop 10/18/24 at 09:31; Status DC Methylprednisolone Sodium Succinate 125 mg ONCE ONCE IVP Last administered on 10/18/24at 09:45; Start 10/18/24 at 09:30; Stop 10/18/24 at 09:31; Status DC Potassium Bicarbonate 50 meq ONCE ONCE PO Last administered on 10/18/24at 10:18; Start 10/18/24 at 10:30; Stop 10/18/24 at 10:31; Status DC Furosemide 40 mg ONCE ONCE IV Last administered on 10/18/24at 10:24; Start 10/18/24 at 10:30; Stop 10/18/24 at 10:31; Status DC Iohexol 35,000 mg STK-MED ONCE IV; Start 10/18/24 at 10:42; Stop 10/18/24 at 10:42; Status DC Acetaminophen 650 mg Q6H PRN PO; Start 10/18/24 at 12:30; Stop 11/17/24 at 12:29 Acetaminophen 650 mg Q4H PRN PO Last administered on 10/21/24at 16:26; Start 10/18/24 at 12:30; Stop 11/17/24 at 12:29 Ondansetron HCl 4 mg Q6H PRN IV; Start 10/18/24 at 12:30; Stop 11/17/24 at 12:29 Al Hydroxide/Mg Hydroxide 30 ml Q6H PRN PO; Start 10/18/24 at 12:30; Stop 11/17/24 at 12:29 Lactulose 20 gm BID PRN PO; Start 10/18/24 at 12:30; Stop 11/17/24 at 12:29 Guaifenesin/ Dextromethorphan 10 ml Q4H PRN PO; Start 10/18/24 at 12:30; Stop 11/17/24 at 12:29 Albuterol Sulfate 2.5 mg [id number] PRN IH; Start 10/18/24 at 12:30; Stop 11/17/24 at 12:29 Furosemide 40 mg BID IVP Last administered on 10/18/24at 17:51; Start 10/18/24 at 21:00; Stop 10/18/24 at 18:05; Status DC Enoxaparin Sodium 40 mg DAILY SQ; Start 10/19/24 at 09:00; Stop 10/18/24 at 17:44; Status DC Potassium Chloride 20 meq BID PO; Start 10/18/24 at 21:00; Stop 10/18/24 at 18:05; Status DC Dextrose 50 ml AD PRN IV; Start 10/18/24 at 12:30; Stop 11/17/24 at 12:29 Glucagon 1 mg AD PRN IM; Start 10/18/24 at 12:30; Stop 10/19/24 at 12:49; Status DC Potassium Chloride 100 ml @ 100 mls/hr AD PRN IV Last administered on 10/19/24at 06:25; Start 10/18/24 at 12:30; Stop 11/17/24 at 12:29 Potassium Chloride 20 meq AD PRN PO; Start 10/18/24 at 12:30; Stop 11/17/24 at 12:29 Potassium Chloride 20 meq AD PRN PO Last administered on 10/19/24at 06:25; Start 10/18/24 at 12:30; Stop 11/17/24 at 12:29 Magnesium Sulfate 50 ml @ 0 mls/hr PROTOCOL PRN IV; Start 10/18/24 at 12:30; Stop 11/17/24 at 12:29 Albuterol 1 UDVIAL [id number] IH Last administered on 10/19/24at 12:37; Start 10/18/24 at 18:00; Stop 10/19/24 at 12:49; Status DC Buspirone HCl 5 mg BID PRN PO; Start 10/18/24 at 13:00; Stop 11/17/24 at 12:59 Carvedilol 25 mg BID PO Last administered on 10/21/24at 20:55; Start 10/18/24 at 21:00; Stop 11/17/24 at 20:59 Amlodipine Besylate 10 mg DAILY PO; Start 10/19/24 at 09:00; Stop 10/18/24 at 17:44; Status DC Home Med (Escitalopram Oxalate 10 MG) DAILY PO; Start 10/19/24 at 09:00; Stop 10/18/24 at 17:45; Status DC Hydralazine HCl 100 mg TID PO Last administered on 10/21/24at 20:54; Start at 14:00; Stop 11/17/24 at 13:59 Home Med (Minoxidil 10 MG) BID PO; Start 10/18/24 at 21:00; Stop 11/17/24 at 20:59 Atorvastatin Calcium 10 mg HS PO Last administered on 10/21/24at 20:55; Start 10/18/24 at 21:00; Stop 11/17/24 at 20:59 Sacubitril/ Valsartan 1 each BID PO; Start 10/18/24 at 21:00; Stop 10/18/24 at 18:13; Status DC Enoxaparin Sodium 40 mg DAILY SQ Last administered on 10/20/24at 09:19; Start 10/18/24 at 17:44; Stop 10/21/24 at 08:41; Status DC Amlodipine Besylate 10 mg DAILY PO Last administered on 10/21/24at 11:32; Start 10/18/24 at 17:44; Stop 11/17/24 at 17:43 Home Med (Escitalopram Oxalate 10 MG) DAILY PO; Start 10/18/24 at 17:44; Stop 11/17/24 at 17:43 Carvedilol 25 mg STK-MED ONCE PO Last administered on 10/18/24at 17:53; Start 10/18/24 at 17:47; Stop 10/18/24 at 17:48; Status DC Furosemide 40 mg STK-MED ONCE .ROUTE Last administered on 10/18/24at 17:52; Start 10/18/24 at 17:48; Stop 10/18/24 at 17:48; Status DC Methylprednisolone Sodium Succinate 125 mg STK-MED ONCE .ROUTE Last administered on 10/18/24at 17:52; Start 10/18/24 at 17:48; Stop 10/18/24 at 17:48; Status DC Sacubitril/ Valsartan 1 each STK-MED ONCE PO Last administered on 10/18/24at 17:53; Start 10/18/24 at 17:48; Stop 10/18/24 at 17:48; Status DC Hydralazine HCl 20 mg Q4H PRN IV Last administered on 10/20/24at 23:50; Start 10/18/24 at 18:00; Stop 11/17/24 at 17:59 Nitroglycerin 0.4 mg DAILY TD Last administered on 10/20/24at 16:27; Start 10/18/24 at 18:00; Stop 11/17/24 at 17:59 Furosemide 40 mg Q8H5 IVP Last administered on 10/21/24at 20:53; Start 10/18/24 at 21:00; Stop 11/17/24 at 20:59 Potassium Chloride 20 meq TID PO Last administered on 10/21/24at 20:55; Start 10/18/24 at 21:00; Stop 11/17/24 at 20:59 Methylprednisolone Sodium Succinate 125 mg Q6H IVP Last administered on 10/19/24at 09:31; Start 10/18/24 at 21:00; Stop 10/19/24 at 12:48; Status DC Sacubitril/ Valsartan 1 each BID PO Last administered on 10/21/24at 20:55; Start 10/18/24 at 21:00; Stop 11/17/24 at 20:59 Dextrose 50 ml AD PRN IV; Start 10/18/24 at 18:30; Stop 10/19/24 at 12:49; Status DC Glucagon 1 mg AD PRN IM; Start 10/18/24 at 18:30; Stop 11/17/24 at 18:29 Insulin Human Regular INSULIN SLIDING SCAL... ACHS SQ Last administered on 10/20/24at 21:22; Start 10/18/24 at 21:00; Stop 11/17/24 at 20:59 Methylprednisolone Sodium Succinate 125 mg Q12H9 IVP Last administered on 10/20/24at 09:17; Start 10/19/24 at 21:00; Stop 10/20/24 at 15:26; Status DC Albuterol 1 UDVIAL TIDAC IH Last administered on 10/20/24at 18:59; Start 10/19/24 at 17:00; Stop 10/21/24 at 14:44; Status DC Pantoprazole Sodium 40 mg DAILY PO Last administered on 10/21/24at 11:32; Start 10/21/24 at 09:00; Stop 11/20/24 at 08:59 Potassium Chloride 100 ml @ 50 mls/hr AD PRN IV; Start 10/21/24 at 07:00; Stop 10/21/24 at 06:53; Status DC Sodium Chloride 1,000 ml @ As Directed STK-MED ONCE IV Last administered on 10/21/24at 07:37; Start 10/21/24 at 07:13; Stop 10/21/24 at 07:13; Status DC Dexamethasone Sodium Phosphate 10 mg STK-MED ONCE .ROUTE; Start 10/21/24 at 07:57; Stop 10/21/24 at 07:57; Status DC Lidocaine HCl 100 mg STK-MED ONCE .ROUTE; Start 10/21/24 at 07:57; Stop 10/21/24 at 07:58; Status DC Ondansetron HCl 4 mg STK-MED ONCE .ROUTE; Start 10/21/24 at 07:57; Stop 10/21/24 at 07:58; Status DC Propofol 200 mg STK-MED ONCE IV; Start 10/21/24 at 07:58; Stop 10/21/24 at 07:58; Status DC Succinylcholine Chloride 200 mg STK-MED ONCE .ROUTE; Start 10/21/24 at 07:58; Stop 10/21/24 at 07:58; Status DC Rocuronium [place] 50 mg STK-MED ONCE .ROUTE; Start 10/21/24 at 07:58; Stop 10/21/24 at 07:59; Status DC Midazolam HCl 2 mg STK-MED ONCE .ROUTE; Start 10/21/24 at 07:59; Stop 10/21/24 at 07:59; Status DC Fentanyl Citrate 100 mcg STK-MED ONCE .ROUTE; Start 10/21/24 at 08:10; Stop 12/22/23 at 08:10; Status DC Midazolam HCl 2 mg STK-MED ONCE .ROUTE; Start 10/21/24 at 08:34; Stop 10/21/24 at 08:34; Status DC Acetaminophen 650 mg Q6H PRN PO; Start 10/21/24 at 09:00; Stop 10/21/24 at 08:44; Status DC Tramadol HCl 50 mg Q6H PRN PO; Start 10/21/24 at 09:00; Stop 10/21/24 at 13:17; Status DC Tramadol HCl 100 mg Q6H PRN PO Last administered on 10/21/24at 09:59; Start 10/21/24 at 09:00; Stop 10/21/24 at 13:17; Status DC Cefazolin Sodium 2 gm Q8H IVPB Last administered on 10/21/24at 17:04; Start 10/21/24 at 17:00; Stop 10/22/24 at 09:01 Glycopyrrolate 1 mg STK-MED ONCE .ROUTE; Start 10/21/24 at 09:04; Stop 10/21/24 at 09:04; Status DC Neostigmine Methylsulfate 10 mg STK-MED ONCE IV; Start 10/21/24 at 09:04; Stop 10/21/24 at 09:04; Status DC Neostigmine Methylsulfate 10 mg STK-MED ONCE IV; Start 10/21/24 at 09:05; Stop 10/21/24 at 09:05; Status DC Fentanyl Citrate 100 mcg STK-MED ONCE .ROUTE; Start 10/21/24 at 09:12; Stop 10/21/24 at 09:12; Status DC Fentanyl Citrate 100 mcg STK-MED ONCE .ROUTE; Start 10/21/24 at 09:16; Stop 10/21/24 at 09:16; Status DC Cefazolin Sodium 2 gm STK-MED ONCE IVPB Last administered on 10/21/24at 08:30; Start 10/21/24 at 08:30; Stop 10/21/24 at 10:17; Status DC Acetaminophen/ Hydrocodone Bitart 1.5 tab Q4H PRN PO Last administered on 10/21/24at 10:54; Start 10/21/24 at 11:00; Stop 10/21/24 at 13:17; Status DC Morphine Sulfate 2 mg Q3H3 PRN IVP; Start 10/21/24 at 13:30; Stop 10/28/24 at 13:29 Morphine Sulfate 4 mg Q3H3 PRN IVP Last administered on 10/21/24at 13:21; Start 10/21/24 at 13:30; Stop 10/28/24 at 13:29 Albuterol 1 UDVIAL TID IH; Start 10/21/24 at 21:00; Stop 11/17/24 at 17:59 Albuterol 1 udvial STK-MED ONCE IH Last administered on 10/21/24at 19:35; Start 10/21/24 at 18:26; Stop 10/21/24 at 18:27; Status DC Assessment/Plan RADIOLOGY CHEST 1VW 10/18/2024 FINDINGS: There is stable cardial megaly. There is mild vascular congestion. Lungs are otherwise clear. Mediastinum and bony thorax appear unremarkable. IMPRESSION: Cardiomegaly with vascular congestion consistent with CHF. CT CHEST PE PROTOCOL WWO CONT 10/19/2024 FINDINGS: Lungs are clear. There are no focal masses or infiltrates. There is cardiomegaly accentuated by a moderate pericardial effusion, the effusion measures 2 cm along the left heart margin. There is no hilar or mediastinal lymphadenopathy. Chest wall structures appear normal as do visualized upper abdominal structures. Contrast outlines normal appearing central pulmonary arteries. There is no CT evidence of PE. The a sending aorta appears normal without aneurysm or dissection. IMPRESSION: 1. There is cardiomegaly, there is also moderate pericardial effusion. 2. No CT evidence of PE. 2DECHO 10/19/2024 Left Ventricle cavity size is normal. Severe concentric left ventricular hype rtrophy. LVEF is >65%. The LV diastolic function was unable to be assessed Right Ventricle is severely dilated. The right ventricular systolic function is normal. Atria The left atrium is severely dilated. The right atrium is moderately to severely dilated. Aortic Valve is normal in structure and function. No aortic regurgitation is present. There is no aortic valvular stenosis. Mitral Valve leaflets open well. There is mild mitral valve regurgitation noted. There is no mitral valve stenosis. Tricuspid Valve is normal in structure and function. There is trace of tricuspid valve regurgitation noted. Pulmonic Valve is normal in structure and function. There is no pulmonic valvular regurgitation. Great Vessels The aortic root is normal in size. IVC is dilated and collapses >50% with inspiration. Pericardium Large pericardial effusion. No RV diastolic collapse. Quality : Technically difficult due to body habitus Conclusion Left ventricular cavity size is normal. Severe concentric left ventricular hypertrophy. LVEF is >65%. The LV diastolic function was unable to be assessed The right ventricle is severely dilated. The right ventricular systolic function is normal. The left atrium is severely dilated. The right atrium is moderately to severely dilated. There is mild mitral valve regurgitation noted. IVC is dilated and collapses >50% with inspiration. Large pericardial effusion. No RV diastolic collapse. CHEST 1VW 10/21/2024 FINDINGS: A frontal projection of the chest was obtained. There are bilateral pulmonary infiltrates suggestive of pulmonary vascular congestion with possible superimposed pneumonitis. The heart is borderline enlarged. Degenerative changes are seen. No evidence of aortic calcification is seen. IMPRESSION: Bilateral pulmonary infiltrates are seen suggestive of pulmonary vascular congestion with possible superimposed pneumonitis. Procedure : PERICARDIAL WINDOW DATE : 10/21/2024 PRE AND POST OP DIAGNOSIS : PERICARDIAL EFFUSION SURGEON : DR AQUINO FINDINGS: The patient had 700 mL of clear pericardial fluid. The pericardium did not appear inflamed. The fluid was under pressure. 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) PRESENTED WITH ACUTE ON CHRONIC DIASTOLIC CHF EXACERBATION ACUTE HYPOXIC RESPIRATORY FAILURE LARGE PERICARDIAL EFFUSION BY ECHO WITH EF 65% COPD EX HYPERTENSIVE URGENCY HYPOKALEMIA S/P PERICARDIA WINDOW 10/21/2024 700 CC FLUID DRAINED PLAN: DOING WELL POST OP EXCEPT FOR PAIN WILL INCREASE ANALGESICS NEEDED CONT DIURETICS AND CHANGE TO PO ROUTE WITH DIET ADVANCEMENT CONT SUPPLEMENT POTASSIUM CONT CPAP QHS AND PRN RESPIRATORY STATUS STABLE CONT TO ADJUST BP MEDS FOR BP CONTROL GLUCOSE UNDER ADEQUATE CONTROL LOVENOX ON HOLD CONT TEDS AND SCD FOR DVT PROPHYLAXIS PPI FOR STRESS ULCER PROPHYLAXIS CONTINUE MONITORING ON TELEMETRY INCREASE DIET AND REHAB ONLY TOLERATED CR TABARES MD Oct 21, 2024 22:42
--- NOTE | 2024-10-21 23:07 | PN ---
HPI: pt was seen and examined today s/p pericardial window clinically he remains stable Vitals/Labs Vital Signs Date Time Temp Pulse Resp B/P (MAP) Pulse Ox O2 Delivery O2 Flow Rate FiO2 10/21/24 20:55 150/71 10/21/24 19:36 55 20 10/21/24 16:00 95 Nasal Cannula* 2 28 10/21/24 12:00 99.0 Laboratory Tests 10/21/24 05:11 10/21/24 22:39 Medications Current Medications Albuterol 1 UDVIAL ONCE ONCE IH Last administered on 10/18/24at 10:12; Start 10/18/24 at 09:30; Stop 10/18/24 at 09:31; Status DC Methylprednisolone Sodium Succinate 125 mg ONCE ONCE IVP Last administered on 10/18/24at 09:45; Start 10/18/24 at 09:30; Stop 10/18/24 at 09:31; Status DC Potassium Bicarbonate 50 meq ONCE ONCE PO Last administered on 10/18/24at 10:18; Start 10/18/24 at 10:30; Stop 10/18/24 at 10:31; Status DC Furosemide 40 mg ONCE ONCE IV Last administered on 10/18/24at 10:24; Start 10/18/24 at 10:30; Stop 10/18/24 at 10:31; Status DC Iohexol 35,000 mg STK-MED ONCE IV; Start 10/18/24 at 10:42; Stop 10/18/24 at 10:42; Status DC Acetaminophen 650 mg Q6H PRN PO; Start 10/18/24 at 12:30; Stop 11/17/24 at 12:29 Acetaminophen 650 mg Q4H PRN PO Last administered on 10/21/24at 16:26; Start 10/18/24 at 12:30; Stop 11/17/24 at 12:29 Ondansetron HCl 4 mg Q6H PRN IV; Start 10/18/24 at 12:30; Stop 11/17/24 at 12:29 Al Hydroxide/Mg Hydroxide 30 ml Q6H PRN PO; Start 10/18/24 at 12:30; Stop 11/17/24 at 12:29 Lactulose 20 gm BID PRN PO; Start 10/18/24 at 12:30; Stop 11/17/24 at 12:29 Guaifenesin/ Dextromethorphan 10 ml Q4H PRN PO; Start 10/18/24 at 12:30; Stop 11/17/24 at 12:29 Albuterol Sulfate 2.5 mg [id number] PRN IH; Start 10/18/24 at 12:30; Stop 11/17/24 at 12:29 Furosemide 40 mg BID IVP Last administered on 10/18/24at 17:51; Start 10/18/24 at 21:00; Stop 10/18/24 at 18:05; Status DC Enoxaparin Sodium 40 mg DAILY SQ; Start 10/19/24 at 09:00; Stop 10/18/24 at 17:44; Status DC Potassium Chloride 20 meq BID PO; Start 10/18/24 at 21:00; Stop 10/18/24 at 18:05; Status DC Dextrose 50 ml AD PRN IV; Start 10/18/24 at 12:30; Stop 11/17/24 at 12:29 Glucagon 1 mg AD PRN IM; Start 10/18/24 at 12:30; Stop 10/19/24 at 12:49; Status DC Potassium Chloride 100 ml @ 100 mls/hr AD PRN IV Last administered on 10/19/24at 06:25; Start 10/18/24 at 12:30; Stop 11/17/24 at 12:29 Potassium Chloride 20 meq AD PRN PO; Start 10/18/24 at 12:30; Stop 11/17/24 at 12:29 Potassium Chloride 20 meq AD PRN PO Last administered on 10/19/24at 06:25; Start 10/18/24 at 12:30; Stop 11/17/24 at 12:29 Magnesium Sulfate 50 ml @ 0 mls/hr PROTOCOL PRN IV; Start 10/18/24 at 12:30; Stop 11/17/24 at 12:29 Albuterol 1 UDVIAL [id number] IH Last administered on 10/19/24at 12:37; Start 10/18/24 at 18:00; Stop 10/19/24 at 12:49; Status DC Buspirone HCl 5 mg BID PRN PO; Start 10/18/24 at 13:00; Stop 11/17/24 at 12:59 Carvedilol 25 mg BID PO Last administered on 10/21/24at 20:55; Start 10/18/24 at 21:00; Stop 11/17/24 at 20:59 Amlodipine Besylate 10 mg DAILY PO; Start 10/19/24 at 09:00; Stop 10/18/24 at 17:44; Status DC Home Med (Escitalopram Oxalate 10 MG) DAILY PO; Start 10/19/24 at 09:00; Stop 10/18/24 at 17:45; Status DC Hydralazine HCl 100 mg TID PO Last administered on 10/21/24at 20:54; Start 10/18/24 at 14:00; Stop 11/17/24 at 13:59 Home Med (Minoxidil 10 MG) BID PO; Start 10/18/24 at 21:00; Stop 11/17/24 at 20:59 Atorvastatin Calcium 10 mg HS PO Last administered on 10/21/24at 20:55; Start 10/18/24 at 21:00; Stop 11/17/24 at 20:59 Sacubitril/ Valsartan 1 each BID PO; Start 10/18/24 at 21:00; Stop 10/18/24 at 18:13; Status DC Enoxaparin Sodium 40 mg DAILY SQ Last administered on 10/20/24at 09:19; Start 10/18/24 at 17:44; Stop 10/21/24 at 08:41; Status DC Amlodipine Besylate 10 mg DAILY PO Last administered on 10/21/24at 11:32; Start 10/18/24 at 17:44; Stop 11/17/24 at 17:43 Home Med (Escitalopram Oxalate 10 MG) DAILY PO; Start 10/18/24 at 17:44; Stop 11/17/24 at 17:43 Carvedilol 25 mg STK-MED ONCE PO Last administered on 10/18/24at 17:53; Start 10/18/24 at 17:47; Stop 10/18/24 at 17:48; Status DC Furosemide 40 mg STK-MED ONCE .ROUTE Last administered on 10/18/24at 17:52; Start 10/18/24 at 17:48; Stop 10/18/24 at 17:48; Status DC Methylprednisolone Sodium Succinate 125 mg STK-MED ONCE .ROUTE Last administered on 10/18/24at 17:52; Start 10/18/24 at 17:48; Stop 10/18/24 at 17:48; Status DC Sacubitril/ Valsartan 1 each STK-MED ONCE PO Last administered on 10/18/24at 17:53; Start 10/18/24 at 17:48; Stop 10/18/24 at 17:48; Status DC Hydralazine HCl 20 mg Q4H PRN IV Last administered on 10/20/24at 23:50; Start 10/18/24 at 18:00; Stop 11/17/24 at 17:59 Nitroglycerin 0.4 mg DAILY TD Last administered on 10/20/24at 16:27; Start 10/18/24 at 18:00; Stop 10/21/24 at 22:29; Status DC Furosemide 40 mg Q8H5 IVP Last administered on 10/21/24at 20:53; Start 10/18/24 at 21:00; Stop 10/21/24 at 22:29; Status DC Potassium Chloride 20 meq TID PO Last administered on 10/21/24at 20:55; Start 10/18/24 at 21:00; Stop 11/17/24 at 20:59 Methylprednisolone Sodium Succinate 125 mg Q6H IVP Last administered on 10/19/24at 09:31; Start 10/18/24 at 21:00; Stop 10/19/24 at 12:48; Status DC Sacubitril/ Valsartan 1 each BID PO Last administered on 10/21/24at 20:55; Start 10/18/24 at 21:00; Stop 11/17/24 at 20:59 Dextrose 50 ml AD PRN IV; Start 10/18/24 at 18:30; Stop 10/19/24 at 12:49; Status DC Glucagon 1 mg AD PRN IM; Start 10/18/24 at 18:30; Stop 11/17/24 at 18:29 Insulin Human Regular INSULIN SLIDING SCAL... ACHS SQ Last administered on 10/20/24at 21:22; Start 10/18/24 at 21:00; Stop 11/17/24 at 20:59 Methylprednisolone Sodium Succinate 125 mg Q12H9 IVP Last administered on 10/20/24at 09:17; Start 10/19/24 at 21:00; Stop 10/20/24 at 15:26; Status DC Albuterol 1 UDVIAL TIDAC IH Last administered on 10/20/24at 18:59; Start 10/19/24 at 17:00; Stop 10/21/24 at 14:44; Status DC Pantoprazole Sodium 40 mg DAILY PO Last administered on 10/21/24at 11:32; Start 10/21/24 at 09:00; Stop 11/20/24 at 08:59 Potassium Chloride 100 ml @ 50 mls/hr AD PRN IV; Start 10/21/24 at 07:00; Stop 10/21/24 at 06:53; Status DC Sodium Chloride 1,000 ml @ As Directed STK-MED ONCE IV Last administered on 10/21/24at 07:37; Start 10/21/24 at 07:13; Stop 10/21/24 at 07:13; Status DC Dexamethasone Sodium Phosphate 10 mg STK-MED ONCE .ROUTE; Start 10/21/24 at 07:57; Stop 10/21/24 at 07:57; Status DC Lidocaine HCl 100 mg STK-MED ONCE .ROUTE; Start 10/21/24 at 07:57; Stop 10/21/24 at 07:58; Status DC Ondansetron HCl 4 mg STK-MED ONCE .ROUTE; Start 10/21/24 at 07:57; Stop 10/21/24 at 07:58; Status DC Propofol 200 mg STK-MED ONCE IV; Start 10/21/24 at 07:58; Stop 10/21/24 at 07:58; Status DC Succinylcholine Chloride 200 mg STK-MED ONCE .ROUTE; Start 10/21/24 at 07:58; Stop 10/21/24 at 07:58; Status DC Rocuronium [place] 50 mg STK-MED ONCE .ROUTE; Start 10/21/24 at 07:58; Stop 10/21/24 at 07:59; Status DC Midazolam HCl 2 mg STK-MED ONCE .ROUTE; Start 10/21/24 at 07:59; Stop 10/21/24 at 07:59; Status DC Fentanyl Citrate 100 mcg STK-MED ONCE .ROUTE; Start 10/21/24 at 08:10; Stop 10/21/24 at 08:10; Status DC Midazolam HCl 2 mg STK-MED ONCE .ROUTE; Start 10/21/24 at 08:34; Stop 10/21/24 at 08:34; Status DC Acetaminophen 650 mg Q6H PRN PO; Start 10/21/24 at 09:00; Stop 10/21/24 at 08:44; Status DC Tramadol HCl 50 mg Q6H PRN PO; Start 10/21/24 at 09:00; Stop 10/21/24 at 13:17; Status DC Tramadol HCl 100 mg Q6H PRN PO Last administered on 10/21/24at 09:59; Start 10/21/24 at 09:00; Stop 10/21/24 at 13:17; Status DC Cefazolin Sodium 2 gm Q8H IVPB Last administered on 10/21/24at 17:04; Start 10/21/24 at 17:00; Stop 10/22/24 at 09:01 Glycopyrrolate 1 mg STK-MED ONCE .ROUTE; Start 10/21/24 at 09:04; Stop 10/21/24 at 09:04; Status DC Neostigmine Methylsulfate 10 mg STK-MED ONCE IV; Start 10/21/24 at 09:04; Stop 10/21/24 at 09:04; Status DC Neostigmine Methylsulfate 10 mg STK-MED ONCE IV; Start 10/21/24 at 09:05; Stop 10/21/24 at 09:05; Status DC Fentanyl Citrate 100 mcg STK-MED ONCE .ROUTE; Start 10/21/24 at 09:12; Stop 10/21/24 at 09:12; Status DC Fentanyl Citrate 100 mcg STK-MED ONCE .ROUTE; Start 10/21/24 at 09:16; Stop 10/21/24 at 09:16; Status DC Cefazolin Sodium 2 gm STK-MED ONCE IVPB Last administered on 10/21/24at 08:30; Start 10/21/24 at 08:30; Stop 10/21/24 at 10:17; Status DC Acetaminophen/ Hydrocodone Bitart 1.5 tab Q4H PRN PO Last administered on 10/21/24at 10:54; Start 10/21/24 at 11:00; Stop 10/21/24 at 13:17; Status DC Morphine Sulfate 2 mg Q3H3 PRN IVP; Start 10/21/24 at 13:30; Stop 10/28/24 at 13:29 Morphine Sulfate 4 mg Q3H3 PRN IVP Last administered on 10/21/24at 13:21; Start 10/21/24 at 13:30; Stop 10/28/24 at 13:29 Albuterol 1 UDVIAL TID IH; Start 10/21/24 at 21:00; Stop 11/17/24 at 17:59 Albuterol 1 udvial STK-MED ONCE IH Last administered on 10/21/24at 19:35; Start 10/21/24 at 18:26; Stop 10/21/24 at 18:27; Status DC Furosemide 80 mg BID@,17 PO; Start 10/22/24 at 09:00; Stop 11/21/24 at 08:59 ASSESSMENT: Moderate to large pericardial effusion with Doppler evidence of tamponade. * Hypertension with moderate left ventricular hypertrophy. * Shortness of breath secondary to pericardial effusion. pt is s/p pericardial window with CT surgery overall he remains stable will continue to follow closely DEVANTE CRESPO PAC Oct 21, 2024 23:07
[2024-10-22] VITALS (24 sets, daily range): BP systolic 134–198; BP diastolic 62–96; PULSE 49–77; RESP 13–32; TEMP 98.4–98.7; O2SAT 3–95
[2024-10-22] MEDS: morPHINE 2 MG SYG IVP PRN (02:55)
[2024-10-22 04:26] LABS: MEAN CORPUSCULAR HEMOGLOBIN 27.7 pg (27.0-33.0); MEAN CORPUSCULAR HGB CONC 31.8 g/dL (32.0-36.0); MEAN CORPUSCULAR VOLUME 87.2 fL (79-99); RED BLOOD CELL COUNT(AUTO) 5.16 MIL/uL (4.50-6.20); RED CELL DISTRIBUTION WIDTH 14.2 % (11.0-15.5); WHITE BLOOD COUNT (AUTO) 11.8 K/uL (4.8-10.8)
[2024-10-22 04:50] LABS: CREATININE 1.2 mg/dL (0.5-1.3); MAGNESIUM 2.1 mg/dL (1.80-2.40); POTASSIUM 3.4 mmol/L (3.5-5.1)
[2024-10-22] MEDS: IpraTROPium/alBUTERol SULFATE 3 ML SOLUTION IH SCH (06:40)
[2024-10-22] MEDS: furoSEMIDE 80 MG TABLET PO SCH (07:57)
--- NOTE | 2024-10-22 10:00 | NUR ---
REFUSAL OF BED/CHAIR ALARM. PATIENT SIGNED A REFUSAL FORM OF NO BED/CHAIR ALARM. PLACED IN CHART
[2024-10-22] MEDS: ketOROlac 30MG VIAL (30MG/ML) IVP PRN (10:33)
--- NOTE | 2024-10-22 11:30 | NUR ---
Attempted PT eval, pt reports 10/10 chest/abd pain. Nurse aware, pt not due for pain meds. Vitals stable. PT came back at 1230 patient resting comfortably, no indication of pain. PT to follow for eval, patient already up with nursing.
--- NOTE | 2024-10-22 11:59 | HMCIMG ---
CHEST 1VW HISTORY: Status post pericardial window COMPARISON: 10/21/2024 FINDINGS: A frontal projection of the chest was obtained. Mild bilateral pulmonary infiltrates are seen may be related to mild pulmonary vascular congestion with possible superimposed pneumonitis. The heart is enlarged. Mild degenerative changes are seen. No evidence of aortic calcification is seen. IMPRESSION: 1. Mild bilateral pulmonary infiltrates are seen may be related to mild pulmonary vascular congestion with possible superimposed pneumonitis.
--- NOTE | 2024-10-22 13:38 | PN ---
Subjective Review of Systems PROGRESS NOTE Date of Visit: Oct 22, 2024 Time of Visit: 13:34 Events since last encounter HAS BEEN UP TO CHAIR, C/P POST OP CHEST WALL PAIN Subjective RESTING POST OP General: No Fever, No Chills, No Night Sweats, No Fatigue, No Malaise, No Appetite, No Other HEENT: No Head Aches, No Visual Changes, No Eye Pain, No Ear Pain, No Dysphasia, No Sinus Congestion, No Post Nasal Drip, No Sore Throat, No Other Pulmonary: No Dyspnea, No Cough, No Pleuritic Chest Pain, No Other Cardiovascular: Chest Pain (POST OP); No: Palpitations, Orthopnea, Paroxysmal Noc. Dyspnea, Edema, Lt Headedness, Other Gastrointestinal: No: Nausea, Vomiting, Abdominal Pain, Diarrhea, Constipation, Melena, Hematochezia, Other Genitourinary: No Dysuria, No Frequency, No Incontinence, No Hematuria, No Retention, No Other Musculoskeletal: No: other, neck pain, shoulder pain, arm pain, back pain, hand pain, leg pain, foot pain Skin: No Urticaria, No Rash, No Other Neurological: No: Weakness, Numbness, Incoordination, Change in speech, Confusion, Seizures, Other Objective Vitals and I/O Vital Sign (Last 24 Hours) 10/22/24 10/22/24 10/22/24 09:00 11:00 12:30 Temp 98.8 Pulse 63 Resp 20 B/P (MAP) 146/73 Pulse Ox 93 O2 Delivery Room Air* O2 Flow Rate 0 FiO2 21 Intake & Output (last 24hrs) 10/21/24 10/21/24 10/22/24 15:00 23:00 07:00 Intake Total 450 ml 390.0 ml Output Total 1050 ml 970 ml 710 ml Balance -1050 ml -520 ml -320.0 ml General: Alert, Oriented X3, Cooperative, mild distress HEENT: Atraumatic, PERRLA, EOMI, Mucous membr. moist/pink Neck: Supple, No JVD, No thyromegaly Lungs: Other (DISTANT BS WITH DECREASE AUDIBE WHEEZES) Heart: Regular rate, Regular rhythm, Other (CHEST TUBE IN PLACE) Abdomen: Normal bowel sounds, Soft, No tenderness, No masses Extremities: No clubbing, No cyanosis, No edema, Normal pulses Skin: No rashes, No breakdown, No significant lesion Neuro: Normal tone, Sensation intact, Other (DYSPNEA WITH PROLONGED SENTENCES) Psych/Mental Status: Mental status NL, Mood NL, Thoughts/Content NL Results RADIOLOGY: [] EKG: [] Laboratory Tests Test 10/21/24 16:34 10/21/24 20:51 10/21/24 22:39 10/22/24 04:07 Whole Blood Glucose 144 MG/DL (70-110) H 126 MG/DL (70-110) H Potassium Level 3.4 mmol/L (3.5-5.1) L 3.4 mmol/L (3.5-5.1) L White Blood Count 11.8 K/uL (4.8-10.8) H Red Blood Count 5.16 MIL/uL (4.50-6.20) Hemoglobin 14.3 g/dL (14.0-18.0) Hematocrit 45.0 % (42-54) Mean Corpuscular Volume 87.2 fL (79-99) Mean Corpuscular Hemoglobin 27.7 pg (27.0-33.0) Mean Corpuscular Hemoglobin Concent 31.8 g/dL (32.0-36.0) L Red Cell Distribution Width 14.2 % (11.0-15.5) Platelet Count 229 K/uL (130-400) Mean Platelet Volume 9.7 fL (7.5-10.5) Nucleated Red Blood Cells 0.0 % (0.0-0.19) Sodium Level 141 mmol/L (136-145) Chloride Level 105 mmol/L (101-111) Carbon Dioxide Level 32 mmol/L (21-32) Blood Urea Nitrogen 19 mg/dL (7-18) H Creatinine 1.2 mg/dL (0.5-1.3) Glomerular Filtration Rate Calc 71 mL/min (>90) Random Glucose 109 mg/dL (70-105) H Total Calcium 8.0 mg/dL (8.5-10.1) L Magnesium Level 2.10 mg/dL (1.80-2.40) Test 10/22/24 10:39 Whole Blood Glucose 138 MG/DL (70-110) H Medications Current Medications Albuterol 1 UDVIAL ONCE ONCE IH Last administered on 10/18/24at 10:12; Start 10/18/24 at 09:30; Stop 10/18/24 at 09:31; Status DC Methylprednisolone Sodium Succinate 125 mg ONCE ONCE IVP Last administered on 10/18/24at 09:45; Start 10/18/24 at 09:30; Stop 10/18/24 at 09:31; Status DC Potassium Bicarbonate 50 meq ONCE ONCE PO Last administered on 10/18/24at 10:18; Start 10/18/24 at 10:30; Stop 10/18/24 at 10:31; Status DC Furosemide 40 mg ONCE ONCE IV Last administered on 10/18/24at 10:24; Start 10/18/24 at 10:30; Stop 10/18/24 at 10:31; Status DC Iohexol 35,000 mg STK-MED ONCE IV; Start 10/18/24 at 10:42; Stop 10/18/24 at 10:42; Status DC Acetaminophen 650 mg Q6H PRN PO; Start 10/18/24 at 12:30; Stop 11/17/24 at 12:29 Acetaminophen 650 mg Q4H PRN PO Last administered on 10/21/24at 16:26; Start 10/18/24 at 12:30; Stop 10/22/24 at 13:25; Status DC Ondansetron HCl 4 mg Q6H PRN IV; Start 10/18/24 at 12:30; Stop 11/17/24 at 12:29 Al Hydroxide/Mg Hydroxide 30 ml Q6H PRN PO; Start 10/18/24 at 12:30; Stop 11/17/24 at 12:29 Lactulose 20 gm BID PRN PO; Start 10/18/24 at 12:30; Stop 11/17/24 at 12:29 Guaifenesin/ Dextromethorphan 10 ml Q4H PRN PO; Start 10/18/24 at 12:30; Stop 11/17/24 at 12:29 Albuterol Sulfate 2.5 mg [id number] PRN IH; Start 10/18/24 at 12:30; Stop 11/17/24 at 12:29 Furosemide 40 mg BID IVP Last administered on 10/18/24at 17:51; Start 10/18/24 at 21:00; Stop 10/18/24 at 18:05; Status DC Enoxaparin Sodium 40 mg DAILY SQ; Start 10/19/24 at 09:00; Stop 10/18/24 at 17:44; Status DC Potassium Chloride 20 meq BID PO; Start 10/18/24 at 21:00; Stop 10/18/24 at 18:05; Status DC Dextrose 50 ml AD PRN IV; Start 10/18/24 at 12:30; Stop 11/17/24 at 12:29 Glucagon 1 mg AD PRN IM; Start 10/18/24 at 12:30; Stop 10/19/24 at 12:49; Status DC Potassium Chloride 100 ml @ 100 mls/hr AD PRN IV Last administered on 10/19/24at 06:25; Start 10/18/24 at 12:30; Stop 11/17/24 at 12:29 Potassium Chloride 20 meq AD PRN PO; Start 10/18/24 at 12:30; Stop 11/17/24 at 12:29 Potassium Chloride 20 meq AD PRN PO Last administered on 10/22/24at 06:51; Start 10/18/24 at 12:30; Stop 11/17/24 at 12:29 Magnesium Sulfate 50 ml @ 0 mls/hr PROTOCOL PRN IV; Start 10/18/24 at 12:30; Stop 11/17/24 at 12:29 Albuterol 1 UDVIAL [id number] IH Last administered on 10/19/24at 12:37; Start 10/18/24 at 18:00; Stop 10/19/24 at 12:49; Status DC Buspirone HCl 5 mg BID PRN PO; Start 10/18/24 at 13:00; Stop 11/17/24 at 12:59 Carvedilol 25 mg BID PO Last administered on 10/22/24at 07:57; Start 10/18/24 at 21:00; Stop 11/17/24 at 20:59 Amlodipine Besylate 10 mg DAILY PO; Start 10/19/24 at 09:00; Stop 10/18/24 at 17:44; Status DC Home Med (Escitalopram Oxalate 10 MG) DAILY PO; Start 10/19/24 at 09:00; Stop 10/18/24 at 17:45; Status DC Hydralazine HCl 100 mg TID PO Last administered on 10/22/24at 08:00; Start 10/18/24 at 14:00; Stop 11/17/24 at 13:59 Home Med (Minoxidil 10 MG) BID PO Last administered on 10/22/24at 08:29; Start 10/18/24 at 21:00; Stop 11/17/24 at 20:59 Atorvastatin Calcium 10 mg HS PO Last administered on 10/21/24at 20:55; Start 10/18/24 at 21:00; Stop 11/17/24 at 20:59 Sacubitril/ Valsartan 1 each BID PO; Start 10/18/24 at 21:00; Stop 10/18/24 at 18:13; Status DC Enoxaparin Sodium 40 mg DAILY SQ Last administered on 10/20/24at 09:19; Start 10/18/24 at 17:44; Stop 10/21/24 at 08:41; Status DC Amlodipine Besylate 10 mg DAILY PO Last administered on 10/22/24at 07:56; Start 10/18/24 at 17:44; Stop 11/17/24 at 17:43 Home Med (Escitalopram Oxalate 10 MG) DAILY PO Last administered on 10/22/24at 08:29; Start 10/18/24 at 17:44; Stop 11/17/24 at 17:43 Carvedilol 25 mg STK-MED ONCE PO Last administered on 10/18/24at 17:53; Start 10/18/24 at 17:47; Stop 10/18/24 at 17:48; Status DC Furosemide 40 mg STK-MED ONCE .ROUTE Last administered on 10/18/24at 17:52; Start 10/18/24 at 17:48; Stop 10/18/24 at 17:48; Status DC Methylprednisolone Sodium Succinate 125 mg STK-MED ONCE .ROUTE Last administered on 10/18/24at 17:52; Start 10/18/24 at 17:48; Stop 10/18/24 at 17:48; Status DC Sacubitril/ Valsartan 1 each STK-MED ONCE PO Last administered on 10/18/24at 17: 53; Start 10/18/24 at 17:48; Stop 10/18/24 at 17:48; Status DC Hydralazine HCl 20 mg Q4H PRN IV Last administered on 10/20/24at 23:50; Start 10/18/24 at 18:00; Stop 11/17/24 at 17:59 Nitroglycerin 0.4 mg DAILY TD Last administered on 10/20/24at 16:27; Start 10/18/24 at 18:00; Stop 10/21/24 at 22:29; Status DC Furosemide 40 mg Q8H5 IVP Last administered on 10/21/24at 20:53; Start 10/18/24 at 21:00; Stop 10/21/24 at 22:29; Status DC Potassium Chloride 20 meq TID PO Last administered on 10/22/24at 07:58; Start 10/18/24 at 21:00; Stop 11/17/24 at 20:59 Methylprednisolone Sodium Succinate 125 mg Q6H IVP Last administered on 12/20/23at 09:31; Start 10/18/24 at 21:00; Stop 10/19/24 at 12:48; Status DC Sacubitril/ Valsartan 1 each BID PO Last administered on 10/22/24at 07:57; Start 10/18/24 at 21:00; Stop 11/17/24 at 20:59 Dextrose 50 ml AD PRN IV; Start 10/18/24 at 18:30; Stop 10/19/24 at 12:49; Status DC Glucagon 1 mg AD PRN IM; Start 10/18/24 at 18:30; Stop 11/17/24 at 18:29 Insulin Human Regular INSULIN SLIDING SCAL... ACHS SQ Last administered on 10/20/24at 21:22; Start 10/18/24 at 21:00; Stop 11/17/24 at 20:59 Methylprednisolone Sodium Succinate 125 mg Q12H9 IVP Last administered on 10/20/24at 09:17; Start 10/19/24 at 21:00; Stop 10/20/24 at 15:26; Status DC Albuterol 1 UDVIAL TIDAC IH Last administered on 10/20/24at 18:59; Start 10/19/24 at 17:00; Stop 10/21/24 at 14:44; Status DC Pantoprazole Sodium 40 mg DAILY PO Last administered on 10/22/24at 08:05; Start 10/21/24 at 09:00; Stop 11/20/24 at 08:59 Potassium Chloride 100 ml @ 50 mls/hr AD PRN IV; Start 10/21/24 at 07:00; Stop 10/21/24 at 06:53; Status DC Sodium Chloride 1,000 ml @ As Directed STK-MED ONCE IV Last administered on 10/21/24at 07:37; Start 10/21/24 at 07:13; Stop 10/21/24 at 07:13; Status DC Dexamethasone Sodium Phosphate 10 mg STK-MED ONCE .ROUTE; Start 10/21/24 at 07:57; Stop 10/21/24 at 07:57; Status DC Lidocaine HCl 100 mg STK-MED ONCE .ROUTE; Start 10/21/24 at 07:57; Stop 10/21/24 at 07:58; Status DC Ondansetron HCl 4 mg STK-MED ONCE .ROUTE; Start 10/21/24 at 07:57; Stop 10/21/24 at 07:58; Status DC Propofol 200 mg STK-MED ONCE IV; Start 10/21/24 at 07:58; Stop 10/21/24 at 07:58; Status DC Succinylcholine Chloride 200 mg STK-MED ONCE .ROUTE; Start 10/21/24 at 07:58; Stop 10/21/24 at 07:58; Status DC Rocuronium Hartman 50 mg STK-MED ONCE .ROUTE; Start 10/21/24 at 07:58; Stop 10/21/24 at 07:59; Status DC Midazolam HCl 2 mg STK-MED ONCE .ROUTE; Start 10/21/24 at 07:59; Stop 10/21/24 at 07:59; Status DC Fentanyl Citrate 100 mcg STK-MED ONCE .ROUTE; Start 10/21/24 at 08:10; Stop 10/21/24 at 08:10; Status DC Midazolam HCl 2 mg STK-MED ONCE .ROUTE; Start 10/21/24 at 08:34; Stop 10/21/24 at 08:34; Status DC Acetaminophen 650 mg Q6H PRN PO; Start 10/21/24 at 09:00; Stop 10/21/24 at 08:44; Status DC Tramadol HCl 50 mg Q6H PRN PO; Start 10/21/24 at 09:00; Stop 10/21/24 at 13:17; Status DC Tramadol HCl 100 mg Q6H PRN PO Last administered on 10/21/24at 09:59; Start 10/21/24 at 09:00; Stop 10/21/24 at 13:17; Status DC Cefazolin Sodium 2 gm Q8H IVPB Last administered on 10/22/24at 08:03; Start 10/21/24 at 17:00; Stop 10/22/24 at 09:01; Status DC Glycopyrrolate 1 mg STK-MED ONCE .ROUTE; Start 10/21/24 at 09:04; Stop 10/21/24 at 09:04; Status DC Neostigmine Methylsulfate 10 mg STK-MED ONCE IV; Start 10/21/24 at 09:04; Stop 10/21/24 at 09:04; Status DC Neostigmine Methylsulfate 10 mg STK-MED ONCE IV; Start 10/21/24 at 09:05; Stop 10/21/24 at 09:05; Status DC Fentanyl Citrate 100 mcg STK-MED ONCE .ROUTE; Start 10/21/24 at 09:12; Stop 10/21/24 at 09:12; Status DC Fentanyl Citrate 100 mcg STK-MED ONCE .ROUTE; Start 10/21/24 at 09:16; Stop 10/21/24 at 09:16; Status DC Cefazolin Sodium 2 gm STK-MED ONCE IVPB Last administered on 10/21/24at 08:30; Start 10/21/24 at 08:30; Stop 10/21/24 at 10:17; Status DC Acetaminophen/ Hydrocodone Bitart 1.5 tab Q4H PRN PO Last administered on 10/21/24at 10:54; Start 10/21/24 at 11:00; Stop 10/21/24 at 13:17; Status DC Morphine Sulfate 2 mg Q3H3 PRN IVP Last administered on 10/22/24at 02:55; Start 10/21/24 at 13:30; Stop 10/28/24 at 13:29 Morphine Sulfate 4 mg Q3H3 PRN IVP Last administered on 10/22/24at 07:59; Start 10/21/24 at 13:30; Stop 10/22/24 at 09:50; Status DC Albuterol 1 UDVIAL TID IH Last administered on 10/22/24at 06:40; Start 10/21/24 at 21:00; Stop 11/17/24 at 17:59 Albuterol 1 udvial STK-MED ONCE IH Last administered on 10/21/24at 19:35; Start 10/21/24 at 18:26; Stop 10/21/24 at 18:27; Status DC Furosemide 80 mg BID@,17 PO Last administered on 10/22/24at 07:57; Start 10/22/24 at 09:00; Stop 11/21/24 at 08:59 Ketorolac Tromethamine 30 mg Q6H PRN IVP Last administered on 10/22/24at 10:33; Start 10/22/24 at 10:00; Stop 10/27/24 at 09:59 Gabapentin 300 mg ONCE ONCE PO; Start 10/22/24 at 13:30; Stop 10/22/24 at 13:31 Gabapentin 300 mg BID PO; Start 10/22/24 at 21:00; Stop 11/21/24 at 20:59 Docusate Sodium 100 mg TID PO; Start 10/22/24 at 14:00; Stop 11/21/24 at 13:59 Acetaminophen 500 mg TID PO; Start 10/22/24 at 14:00; Stop 11/21/24 at 13:59 Assessment/Plan RADIOLOGY CHEST 1VW 10/18/2024 FINDINGS: There is stable cardial megaly. There is mild vascular congestion. Lungs are otherwise clear. Mediastinum and bony thorax appear unremarkable. IMPRESSION: Cardiomegaly with vascular congestion consistent with CHF. CT CHEST PE PROTOCOL WWO CONT 10/19/2024 FINDINGS: Lungs are clear. There are no focal masses or infiltrates. There is cardiomegaly accentuated by a moderate pericardial effusion, the effusion measures 2 cm along the left heart margin. There is no hilar or mediastinal lymphadenopathy. Chest wall structures appear normal as do visualized upper abdominal structures. Contrast outlines normal appearing central pulmonary arteries. There is no CT evidence of PE. The a sending aorta appears normal without aneurysm or dissection. IMPRESSION: 1. There is cardiomegaly, there is also moderate pericardial effusion. 2. No CT evidence of PE. 2DECHO 10/19/2024 Left Ventricle cavity size is normal. Severe concentric left ventricular hypertrophy. LVEF is >65%. The LV diastolic function was unable to be assessed Right Ventricle is severely dilated. The right ventricular systolic function is normal. Atria The left atrium is severely dilated. The right atrium is moderately to severely dilated. Aortic Valve is normal in structure and function. No aortic regurgitation is present. There is no aortic valvular stenosis. Mitral Valve leaflets open well. There is mild mitral valve regurgitation noted. There is no mitral valve stenosis. Tricuspid Valve is normal in structure and function. There is trace of tricuspid valve regurgitation noted. Pulmonic Valve is normal in structure and function. There is no pulmonic valvular regurgitation. Great Vessels The aortic root is normal in size. IVC is dilated and collapses >50% with inspiration. Pericardium Large pericardial effusion. No RV diastolic collapse. Quality : Technically difficult due to body habitus Conclusion Left ventricular cavity size is normal. Severe concentric left ventricular hypertrophy. LVEF is >65%. The LV diastolic function was unable to be assessed The right ventricle is severely dilated. The right ventricular systolic function is normal. The left atrium is severely dilated. The right atrium is moderately to severely dilated. There is mild mitral valve regurgitation noted. IVC is dilated and collapses >50% with inspiration. Large pericardial effusion. No RV diastolic collapse. CHEST 1VW 10/21/2024 FINDINGS: A frontal projection of the chest was obtained. There are bilateral pulmonary infiltrates suggestive of pulmonary vascular congestion with possible superimposed pneumonitis. The heart is borderline enlarged. Degenerative changes are seen. No evidence of aortic calcification is seen. IMPRESSION: Bilateral pulmonary infiltrates are seen suggestive of pulmonary vascular congestion with possible superimposed pneumonitis. CHEST 1VW 10/22/2024 FINDINGS: A frontal projection of the chest was obtained. Mild bilateral pulmonary infiltrates are seen may be related to mild pulmonary vascular congestion with possible superimposed pneumonitis. The heart is enlarged. Mild degenerative changes are seen. No evidence of aortic calcification is seen. IMPRESSION: Mild bilateral pulmonary infiltrates are seen may be related to mild pulmonary vascular congestion with possible superimposed pneumonitis. Procedure : PERICARDIAL WINDOW DATE : 10/21/2024 PRE AND POST OP DIAGNOSIS : PERICARDIAL EFFUSION SURGEON : DR AQUINO FINDINGS: The patient had 700 mL of clear pericardial fluid. The pericardium did not appear inflamed. The fluid was under pressure. 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) PRESENTED WITH ACUTE ON CHRONIC DIASTOLIC CHF EXACERBATION ACUTE HYPOXIC RESPIRATORY FAILURE LARGE PERICARDIAL EFFUSION BY ECHO WITH EF 65% COPD EX HYPERTENSIVE URGENCY HYPOKALEMIA S/P PERICARDIA WINDOW 10/21/2024 700 CC FLUID DRAINED PLAN: CHEST TUBE REMAINS IN PLACE WEAN OFF MORPHINE ADD GABAPENTIN ALONG WITH SCHEDULED TYLENOL ADD PRN HYDROCODONE AVOID TRAMADOL WITH SSRI ADD COLACE AND SENNA SCHEDULED CONT LASIX AND CHANGED TO PO CONT SUPPLEMENT POTASSIUM CONT CPAP QHS AND PRN RESPIRATORY STATUS STABLE CONT TO ADJUST BP MEDS FOR BP CONTROL GLUCOSE UNDER ADEQUATE CONTROL CONT TEDS AND SCD FOR DVT PROPHYLAXIS INC REHAB WITH P.T. PPI FOR STRESS ULCER PROPHYLAXIS CONTINUE MONITORING ON TELEMETRY CR TABARES MD Oct 22, 2024 13:38
[2024-10-22] MEDS ORDERED: SACU1TAB4 PO (13:42)
[2024-10-22] MEDS: acetaMINOPHEN 500 MG TABLET PO SCH (14:05)
[2024-10-22] MEDS: doCUSate SODIUM 100 MG CAP PO SCH (14:05)
[2024-10-22] MEDS: GABAPENTIN 300 MG CAPSULE PO ONE (14:06)
--- NOTE | 2024-10-22 14:29 | NUR ---
REPORT GIVEN TO PETER LUTZ FROM [facility]
[2024-10-22 15:40] LABS: ABG HCO3 27.3 mmol/L (21.0-28.0); ABG OXYGEN SATURATION 91.3 % (94.0-98.0); ABG PCO2 41 mmHg (35-48); ABG PH 7.443 (7.350-7.450); PO2, ARTERIAL BG 58.3 mmHg (83.0-108.0); VENT MODE, BG HOME CPAP 2L (ROOM AIR)
[2024-10-22] MEDS: metoLAZONE 2.5 MG TABLET PO ONE (18:07)
[2024-10-22] MEDS: busPIRone HCL 5 MG TABLET PO PRN (18:24)
[2024-10-22] MEDS: HYDROcodone/acetaMINOPHEN 10/325 MG TAB PO PRN (18:25)
--- NOTE | 2024-10-22 20:44 | PN ---
HPI: pt was seen and examined pt remains stable Vitals/Labs PE General: Alert, Oriented X3, Cooperative, mild distress HEENT: Atraumatic, PERRLA, EOMI, Mucous membr. moist/pink Neck: Supple, No JVD, No thyromegaly Lungs: Other (DISTANT BS WITH DECREASE AUDIBE WHEEZES) Heart: Regular rate, Regular rhythm Abdomen: Normal bowel sounds, Soft, No tenderness, No masses Extremities: No clubbing, No cyanosis, No edema, Normal pulses Skin: No rashes, No breakdown, No significant lesion Neuro: Normal tone, Sensation intact, Other (DYSPNEA WITH PROLONGED SENTENCES) Psych/Mental Status: Mental status NL, Mood NL, Thoughts/Content NL Vital Signs Date Time Temp Pulse Resp B/P (MAP) Pulse Ox O2 Delivery O2 Flow Rate FiO2 10/22/24 19:58 59 20 10/22/24 19:48 98.4 159/72 95 CPAP 10/22/24 12:30 0 21 Laboratory Tests 10/21/24 22:39 10/22/24 04:07 Medications Current Medications Albuterol 1 UDVIAL ONCE ONCE IH Last administered on 10/18/24at 10:12; Start 10/18/24 at 09:30; Stop 10/18/24 at 09:31; Status DC Methylprednisolone Sodium Succinate 125 mg ONCE ONCE IVP Last administered on 10/18/24at 09:45; Start 10/18/24 at 09:30; Stop 10/18/24 at 09:31; Status DC Potassium Bicarbonate 50 meq ONCE ONCE PO Last administered on 10/18/24at 10:18; Start 10/18/24 at 10:30; Stop 10/18/24 at 10:31; Status DC Furosemide 40 mg ONCE ONCE IV Last administered on 10/18/24at 10:24; Start 10/18/24 at 10:30; Stop 10/18/24 at 10:31; Status DC Iohexol 35,000 mg STK-MED ONCE IV; Start 10/18/24 at 10:42; Stop 10/18/24 at 10:42; Status DC Acetaminophen 650 mg Q6H PRN PO; Start 10/18/24 at 12:30; Stop 11/17/24 at 12:29 Acetaminophen 650 mg Q4H PRN PO Last administered on 10/21/24at 16:26; Start 10/18/24 at 12:30; Stop 10/22/24 at 13:25; Status DC Ondansetron HCl 4 mg Q6H PRN IV; Start 10/18/24 at 12:30; Stop 11/17/24 at 12:29 Al Hydroxide/Mg Hydroxide 30 ml Q6H PRN PO; Start 10/18/24 at 12:30; Stop 11/17/24 at 12:29 Lactulose 20 gm BID PRN PO; Start 10/18/24 at 12:30; Stop 11/17/24 at 12:29 Guaifenesin/ Dextromethorphan 10 ml Q4H PRN PO; Start 10/18/24 at 12:30; Stop 11/17/24 at 12:29 Albuterol Sulfate 2.5 mg [id number] PRN IH; Start 10/18/24 at 12:30; Stop 11/17/24 at 12:29 Furosemide 40 mg BID IVP Last administered on 10/18/24at 17:51; Start 10/18/24 at 21:00; Stop 10/18/24 at 18:05; Status DC Enoxaparin Sodium 40 mg DAILY SQ; Start 10/19/24 at 09:00; Stop 10/18/24 at 17:44; Status DC Potassium Chloride 20 meq BID PO; Start 10/18/24 at 21:00; Stop 10/18/24 at 18:05; Status DC Dextrose 50 ml AD PRN IV; Start 10/18/24 at 12:30; Stop 11/17/24 at 12:29 Glucagon 1 mg AD PRN IM; Start 10/18/24 at 12:30; Stop 10/19/24 at 12:49; Status DC Potassium Chloride 100 ml @ 100 mls/hr AD PRN IV Last administered on 10/19/24at 06:25; Start 10/18/24 at 12:30; Stop 11/17/24 at 12:29 Potassium Chloride 20 meq AD PRN PO; Start 10/18/24 at 12:30; Stop 11/17/24 at 12:29 Potassium Chloride 20 meq AD PRN PO Last administered on 10/22/24at 06:51; Start 10/18/24 at 12:30; Stop 11/17/24 at 12:29 Magnesium Sulfate 50 ml @ 0 mls/hr PROTOCOL PRN IV; Start 10/18/24 at 12:30; Stop 11/17/24 at 12:29 Albuterol 1 UDVIAL [id number] IH Last administered on 10/19/24at 12:37; Start 10/18/24 at 18:00; Stop 10/19/24 at 12:49; Status DC Buspirone HCl 5 mg BID PRN PO Last administered on 10/22/24at 18:24; Start 10/18/24 at 13:00; Stop 11/17/24 at 12:59 Carvedilol 25 mg BID PO Last administered on 10/22/24at 07:57; Start 10/18/24 at 21:00; Stop 11/17/24 at 20:59 Amlodipine Besylate 10 mg DAILY PO; Start 10/19/24 at 09:00; Stop 10/18/24 at 17:44; Status DC Home Med (Escitalopram Oxalate 10 MG) DAILY PO; Start 10/19/24 at 09:00; Stop 10/18/24 at 17:45; Status DC Hydralazine HCl 100 mg TID PO Last administered on 10/22/24at 14:04; Start 10/18/24 at 14:00; Stop 11/17/24 at 13:59 Home Med (Minoxidil 10 MG) BID PO Last administered on 10/22/24at 08:29; Start 10/18/24 at 21:00; Stop 11/17/24 at 20:59 Atorvastatin Calcium 10 mg HS PO Last administered on 10/21/24at 20:55; Start 10/18/24 at 21:00; Stop 11/17/24 at 20:59 Sacubitril/ Valsartan 1 each BID PO; Start 10/18/24 at 21:00; Stop 10/18/24 at 18:13; Status DC Enoxaparin Sodium 40 mg DAILY SQ Last administered on 10/20/24at 09:19; Start 10/18/24 at 17:44; Stop 10/21/24 at 08:41; Status DC Amlodipine Besylate 10 mg DAILY PO Last administered on 10/22/24at 07:56; Start 10/18/24 at 17:44; Stop 11/17/24 at 17:43 Home Med (Escitalopram Oxalate 10 MG) DAILY PO Last administered on 10/22/24at 08:29; Start 10/18/24 at 17:44; Stop 11/17/24 at 17:43 Carvedilol 25 mg STK-MED ONCE PO Last administered on 10/18/24at 17:53; Start 10/18/24 at 17:47; Stop 10/18/24 at 17:48; Status DC Furosemide 40 mg STK-MED ONCE .ROUTE Last administered on 10/18/24at 17:52; Start 10/18/24 at 17:48; Stop 10/18/24 at 17:48; Status DC Methylprednisolone Sodium Succinate 125 mg STK-MED ONCE .ROUTE Last administered on 10/18/24at 17:52; Start 10/18/24 at 17:48; Stop 10/18/24 at 17:48; Status DC Sacubitril/ Valsartan 1 each STK-MED ONCE PO Last administered on 10/18/24at 17:53; Start 10/18/24 at 17:48; Stop 10/18/24 at 17:48; Status DC Hydralazine HCl 20 mg Q4H PRN IV Last administered on 10/20/24at 23:50; Start 10/18/24 at 18:00; Stop 11/17/24 at 17:59 Nitroglycerin 0.4 mg DAILY TD Last administered on 10/20/24at 16:27; Start 10/18/24 at 18:00; Stop 10/21/24 at 22:29; Status DC Furosemide 40 mg Q8H5 IVP Last administered on 10/21/24at 20:53; Start 10/18/24 at 21:00; Stop 10/21/24 at 22:29; Status DC Potassium Chloride 20 meq TID PO Last administered on 10/22/24at 14:04; Start 10/18/24 at 21:00; Stop 10/22/24 at 20:01; Status DC Methylprednisolone Sodium Succinate 125 mg Q6H IVP Last administered on 10/19/24at 09:31; Start 10/18/24 at 21:00; Stop 10/19/24 at 12:48; Status DC Sacubitril/ Valsartan 1 each BID PO Last administered on 10/22/24at 07:57; Start 10/18/24 at 21:00; Stop 11/17/24 at 20:59 Dextrose 50 ml AD PRN IV; Start 10/18/24 at 18:30; Stop 10/19/24 at 12:49; Status DC Glucagon 1 mg AD PRN IM; Start 10/18/24 at 18:30; Stop 11/17/24 at 18:29 Insulin Human Regular INSULIN SLIDING SCAL... ACHS SQ Last administered on 10/20/24at 21:22; Start 10/18/24 at 21:00; Stop 11/17/24 at 20:59 Methylprednisolone Sodium Succinate 125 mg Q12H9 IVP Last administered on 10/20/24at 09:17; Start 10/19/24 at 21:00; Stop 10/20/24 at 15:26; Status DC Albuterol 1 UDVIAL TIDAC IH Last administered on 10/20/24at 18:59; Start 10/19/24 at 17:00; Stop 10/21/24 at 14:44; Status DC Pantoprazole Sodium 40 mg DAILY PO Last administered on 10/22/24at 08:05; Start 10/21/24 at 09:00; Stop 11/20/24 at 08:59 Potassium Chloride 100 ml @ 50 mls/hr AD PRN IV; Start 10/21/24 at 07:00; Stop 10/21/24 at 06:53; Status DC Sodium Chloride 1,000 ml @ As Directed STK-MED ONCE IV Last administered on 10/21/24at 07:37; Start 10/21/24 at 07:13; Stop 10/21/24 at 07:13; Status DC Dexamethasone Sodium Phosphate 10 mg STK-MED ONCE .ROUTE; Start 10/21/24 at 07:57; Stop 10/21/24 at 07:57; Status DC Lidocaine HCl 100 mg STK-MED ONCE .ROUTE; Start 10/21/24 at 07:57; Stop 10/21/24 at 07:58; Status DC Ondansetron HCl 4 mg STK-MED ONCE .ROUTE; Start 10/21/24 at 07:57; Stop 10/21/24 at 07:58; Status DC Propofol 200 mg STK-MED ONCE IV; Start 10/21/24 at 07:58; Stop 10/21/24 at 07:58; Status DC Succinylcholine Chloride 200 mg STK-MED ONCE .ROUTE; Start 10/21/24 at 07:58; Stop 10/21/24 at 07:58; Status DC Rocuronium [place] 50 mg STK-MED ONCE .ROUTE; Start 10/21/24 at 07:58; Stop 10/21/24 at 07:59; Status DC Midazolam HCl 2 mg STK-MED ONCE .ROUTE; Start 10/21/24 at 07:59; Stop 10/21/24 at 07:59; Status DC Fentanyl Citrate 100 mcg STK-MED ONCE .ROUTE; Start 10/21/24 at 08:10; Stop 10/21/24 at 08:10; Status DC Midazolam HCl 2 mg STK-MED ONCE .ROUTE; Start 10/21/24 at 08:34; Stop 10/21/24 at 08:34; Status DC Acetaminophen 650 mg Q6H PRN PO; Start 10/21/24 at 09:00; Stop 10/21/24 at 08:44; Status DC Tramadol HCl 50 mg Q6H PRN PO; Start 10/21/24 at 09:00; Stop 10/21/24 at 13:17; Status DC Tramadol HCl 100 mg Q6H PRN PO Last administered on 10/21/24at 09:59; Start 10/21/24 at 09:00; Stop 10/21/24 at 13:17; Status DC Cefazolin Sodium 2 gm Q8H IVPB Last administered on 10/22/24at 08:03; Start 10/21/24 at 17:00; Stop 10/22/24 at 09:01; Status DC Glycopyrrolate 1 mg STK-MED ONCE .ROUTE; Start 10/21/24 at 09:04; Stop 10/21/24 at 09:04; Status DC Neostigmine Methylsulfate 10 mg STK-MED ONCE IV; Start 10/21/24 at 09:04; Stop 10/21/24 at 09:04; Status DC Neostigmine Methylsulfate 10 mg STK-MED ONCE IV; Start 10/21/24 at 09:05; Stop 10/21/24 at 09:05; Status DC Fentanyl Citrate 100 mcg STK-MED ONCE .ROUTE; Start 10/21/24 at 09:12; Stop 10/21/24 at 09:12; Status DC Fentanyl Citrate 100 mcg STK-MED ONCE .ROUTE; Start 10/21/24 at 09:16; Stop 10/21/24 at 09:16; Status DC Cefazolin Sodium 2 gm STK-MED ONCE IVPB Last administered on 10/21/24at 08:30; Start 10/21/24 at 08:30; Stop 10/21/24 at 10:17; Status DC Acetaminophen/ Hydrocodone Bitart 1.5 tab Q4H PRN PO Last administered on 10/21/24at 10:54; Start 10/21/24 at 11:00; Stop 10/21/24 at 13:17; Status DC Morphine Sulfate 2 mg Q3H3 PRN IVP Last administered on 10/22/24at 02:55; Start 10/21/24 at 13:30; Stop 10/22/24 at 13:33; Status DC Morphine Sulfate 4 mg Q3H3 PRN IVP Last administered on 10/22/24at 07:59; Start 10/21/24 at 13:30; Stop 10/22/24 at 09:50; Status DC Albuterol 1 UDVIAL TID IH Last administered on 10/22/24at 19:58; Start 10/21/24 at 21:00; Stop 11/17/24 at 17:59 Albuterol 1 udvial STK-MED ONCE IH Last administered on 10/21/24at 19:35; Start 10/21/24 at 18:26; Stop 10/21/24 at 18:27; Status DC Furosemide 80 mg BID@ PO Last administered on 10/22/24at 18:07; Start 10/22/24 at 09:00; Stop 11/21/24 at 08:59 Ketorolac Tromethamine 30 mg Q6H PRN IVP Last administered on 10/22/24at 10:33; Start 10/22/24 at 10:00; Stop 10/27/24 at 09:59 Gabapentin 300 mg ONCE ONCE PO Last administered on 10/22/24at 14:06; Start 10/22/24 at 13:30; Stop 10/22/24 at 13:31; Status DC Gabapentin 300 mg BID PO; Start 10/22/24 at 21:00; Stop 11/21/24 at 20:59 Docusate Sodium 100 mg TID PO Last administered on 10/22/24at 14:05; Start 10/22/24 at 14:00; Stop 11/21/24 at 13:59 Acetaminophen 500 mg TID PO Last administered on 10/22/24at 14:05; Start 10/22/24 at 14:00; Stop 11/21/24 at 13:59 Acetaminophen/ Hydrocodone Bitart 1 tab Q6H PRN PO Last administered on 10/22/24at 18:25; Start 10/22/24 at 13:30; Stop 10/29/24 at 13:29 Sennosides 2 tab HS PO; Start 10/22/24 at 21:00; Stop 11/21/24 at 20:59 Magnesium Oxide 400 mg HS PO; Start 10/22/24 at 21:00; Stop 11/21/24 at 20:59 Metolazone 5 mg ONCE ONCE PO Last administered on 10/22/24at 18:07; Start 10/22/24 at 17:30; Stop 10/22/24 at 17:31; Status DC Potassium Chloride 20 meq QID PO; Start 10/22/24 at 20:00; Stop 11/17/24 at 20:59 ASSESSMENT: 1. Moderate to large pericardial effusion with Doppler evidence of tamponade. 2. Hypertension with moderate left ventricular hypertrophy. 3. Shortness of breath secondary to pericardial effusion. pt is s/p pericardial window with CT surgery overall he remains stable will continue to follow closely DEVANTE CRESPO Oct 22, 2024 20:44
[2024-10-22] MEDS: PoTASSium chloRIDE 20MEQ ER 20 MEQ ERTAB PO SCH (21:00)
[2024-10-22] MEDS: GABAPENTIN 300 MG CAPSULE PO SCH (21:11)
[2024-10-22] MEDS: MAGNESIUM OXIDE 400 MG TABLET PO SCH (21:12)
[2024-10-22] MEDS: SENNOSIDES 8.6 MG TABLET PO SCH (21:12)
--- NOTE | 2024-10-22 22:08 | CONS ---
[facility] CONSULTATION NOTE Date Patient Seen: Oct 22, 2024 Time of Visit: 22:08 Supervising Physician: Dr. Chisholm Reason for Consultation: "Pt Sats 85-88% using his personal CPAP" Primary Care Physician: DR. Gretta Carmona Outpatient Specialists: Inpatient Consults: BIS, pulmonology Cardiology Cardiovascular PROBLEM LIST: Acute hypoxemic respiratory failure, POA GIANCARLO with reported complications, home nasal CPAP q.h.s., POA Cardiac tamponade s/p pericardial window on 10/21/[address] 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 Cruz Sykes 20-30% LAD and 20-30% mid RCA with normal EF Former smoker Mixed hyperlipidemia Morbid obesity, BMI 49.3 Major depression Lumbar stenosis Right adrenal myelolipoma 01/2021 HPI: Mr. Del Rosario is a 54-year-old male with a history of obesity, hypertension, renal disease with chronic diastolic CHF, COPD and GIANCARLO who [place] [facility] [place] of shortness of breath worsening over the past two months. The patient developed progressive shortness of breath to the point were he could not lie flat or walk anymore. CT scan of the chest showed pericardial effusion. 2D echo was done at bedside by Dr. Cruz Sykes which showed a large pericardial effusion, more so posterior than anterior associated with Doppler evidence of tamponade. ABGs at 3:39 p.m.: PH 7.443, pCO2 41, PO2 58.3, bicarbonate 27.3, O2 sat 91.3, base excess 3. I went to assess the patient at bedside in room 220. Patient's breathing was even, unlabored on home nasal CPAP at 12 cm H2O, FIO2 28 L/min. The patient reports he has been using CPAP for about a year. 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 He states that he went to asleep study in [facility] who recommended the CPAP. Patient reports due to anxiety he has not been able to tolerate face mask CPAP. ABG at 8:40 p.m. with CPAP at 12 cm H2O and FiO2 32 L/min, ABGs: PH 7.437, pCO2 38, 0265.2, bicarbonate 24.7, O2 sat 93.5, base excess 0.8. Patient agrees with the plan. Plan and assessment are listed below. BIS team we will monitor patient alongside of Dr. Carmona and Cardiology. PAST MEDICAL HX: see above PAST SURGICAL HX: Cardiac stent SOCIAL HISTORY: Tobacco: Former smoker. Currently denies tobacco use. Denies: ETOH, or illicit drug use Coded Allergies: No Known Drug Allergies (Verified Allergy, 08/29/13) REVIEW OF SYSTEMS: 12 point ROS reviewed with patient. Pertinent positives mentioned above. Otherwise negative. PHYSICAL EXAM: GENERAL: alert, awake oriented x 3 HEENT: EOMI, Sclera non icteric, moist mucosa NECK: Supple, no JVD, trachea midline LUNGS: Upper lobes crackles lower lobes diminished sounds bilaterally. No wheezes HEART: Regular rate and rhythm. Normal S1 and S2, without murmurs ABD: Obese. Abdomen soft, nontender. Bowel sounds present EXT: No clubbing cyanosis or edema NEURO: Alert and oriented x3. No neuro deficits. Vital Signs (last 8hr) Date Time Temp Pulse Resp B/P (MAP) Pulse Ox O2 Delivery O2 Flow Rate FiO2 10/22/24 19:58 59 20 10/22/24 19:48 98.4 67 20 159/72 95 CPAP 10/22/24 16:00 98.6 65 20 135/65 99 CPAP 10/22/24 15:02 60 20 LABS: Hematology Labs: Test 10/22/24 04:07 Range/Units White Blood Count 11.8 H 4.8-10.8 K/uL Red Blood Count 5.16 4.50-6.20 MIL/uL Hemoglobin 14.3 14.0-18.0 g/dL Hematocrit 45.0 42-54 % Mean Corpuscular Volume 87.2 79-99 fL Mean Corpuscular Hemoglobin 27.7 27.0-33.0 pg Mean Corpuscular Hemoglobin Concent 31.8 L 32.0-36.0 g/dL Red Cell Distribution Width 14.2 11.0-15.5 % Platelet Count 229 130-400 K/uL Mean Platelet Volume 9.7 7.5-10.5 fL Nucleated Red Blood Cells 0.0 0.0-0.19 % Chemistry Labs: Test 10/22/24 20:07 10/22/24 04:07 Range/Units Whole Blood Glucose 184 H 70-110 MG/DL Sodium Level 141 136-145 mmol/L Potassium Level 3.4 L 3.5-5.1 mmol/L Chloride Level 105 101-111 mmol/L Carbon Dioxide Level 32 21-32 mmol/L Blood Urea Nitrogen 19 H 7-18 mg/dL Creatinine 1.2 0.5-1.3 mg/dL Glomerular Filtration Rate Calc 71 >90 mL/min Random Glucose 109 H 70-105 mg/dL Total Calcium 8.0 L 8.5-10.1 mg/dL Magnesium Level 2.10 1.80-2.40 mg/dL Coagulation Labs: Test 10/21/24 05:11 Range/Units Prothrombin Time 11.0 9.6-11.6 SEC Prothromb Time International Ratio 1.04 0.85-1.15 Activated Partial Thromboplast Time 24.8 L 26.3-35.5 SEC DIAGNOSTICS / RADIOLOGY RESULTS: [ ] PULMONARY PLAN: Monitor respiratory status closely. Continue oxygen therapy as needed. Titrate oxygen to keep SpO2 equal to 92%. Continue home nasal CPAP. (Patient reports due to anxiety he does not tolerate face mask CPAP) Atrovent nebulizer treatment q.6 hours scheduled. Solu-Medrol 60 mg IV q.8 hours. Start doxycycline 100 mg IV b.i.d.. Maintain aspiration precautions at all times Monitor ABGs and chest x-ray for progress. MANA GALEANO COVER ASSEMBLER Oct 22, 2024 22:08
[2024-10-22] MEDS: Solu-medROL 125MG VIAL IVP SCH (22:30)
[2024-10-22 22:41] LABS: ABG BASE EXCESS 0.8 mmol/L (-2.0-3.0); ABG HCO3 24.7 mmol/L (21.0-28.0); ABG OXYGEN SATURATION 93.5 % (94.0-98.0); ABG PCO2 38 mmHg (35-48); ABG PH 7.437 (7.350-7.450); DEVICE COMMENT RN, RR; HHb 6.3; PO2, ARTERIAL BG 65.2 mmHg (83.0-108.0); VENT MODE, BG HOME CPAP 12 (ROOM AIR)
[2024-10-22] MEDS: Solu-medROL 125MG VIAL IVP ONE (23:05)
[2024-10-23] VITALS (13 sets, daily range): BP systolic 126–166; BP diastolic 58–92; PULSE 61–87; RESP 18–22; TEMP 97.7–99.1; O2SAT 94–96
--- NOTE | 2024-10-23 03:55 | PN ---
SUBJECTIVE: Status post pulmonary window, coursing postoperative day #1. OBJECTIVE: GENERAL: Awake, alert, afebrile, neurologically intact. VITAL SIGNS: Stable as recorded in medical record. CHEST: Sternal incision healing, sealed. A chest tube in place, significant amount of serosanguineous drainage. PROBLEMS: 1. Respiratory insufficiency. The patient is much better from the pericardial tamponade that he required. He has got sleep apnea and he continues to use nasal CPAP. 2. Cardiac tamponade, status post pericardial window. He is much better and not pulsus paradoxus. Heart sounds are crisp. 3. Fluid overload. Lasix 20 mg twice a day. PLAN: Transfer to telemetry. Chest tube to suction. TID: [id number] RECEIPT: [id number]
[2024-10-23] MEDS: DOXYCYCLINE 100MG+NS 250ML 250 ML IV SCH (10:30)
[2024-10-23 13:27] LABS: HEMATOCRIT 44.6 % (42-54); MEAN CORPUSCULAR HEMOGLOBIN 27.9 pg (27.0-33.0); MEAN CORPUSCULAR HGB CONC 33.6 g/dL (32.0-36.0); MEAN CORPUSCULAR VOLUME 82.9 fL (79-99); RED BLOOD CELL COUNT(AUTO) 5.38 MIL/uL (4.50-6.20); RED CELL DISTRIBUTION WIDTH 13.4 % (11.0-15.5); WHITE BLOOD COUNT (AUTO) 12.6 K/uL (4.8-10.8)
[2024-10-23 13:38] LABS: CREATININE 1.5 mg/dL (0.5-1.3); POTASSIUM 3.3 mmol/L (3.5-5.1)
[2024-10-23] MEDS: Solu-medROL 40MG VIAL IVP SCH (14:05)
--- NOTE | 2024-10-23 22:05 | PN ---
SUBJECTIVE: The patient is sitting up in the bed. He tells me that after the operation, he is feeling a lot better. He can breathe normal now. Heart rate is 70s, blood pressure is 120/70. OBJECTIVE: HEENT EXAM: Normocephalic, atraumatic. Pupils are equal, react to light. NECK: Supple, no thyromegaly, no carotid bruit, no masses. LUNGS: Clear to percussion and auscultation. CARDIOVASCULAR: Peripheral pulses are diminished. No groin bruit, no abdominal bruit, no carotid bruit, no JVD. S1, S2 heard. No S3, no S4, no murmurs, no rubs, no other adventitious sounds. ABDOMEN: Benign. CENTRAL NERVOUS SYSTEMS: Nonfocal exam. EXTREMITIES: No pitting edema. FINAL IMPRESSION: Status post pericardial window and drainage. RECOMMENDATION: * The patient still has chest tubes in, which he is feeling a lot better. * I will follow up with her on an outpatient basis. * Etiology of the pericardial fluid is not known at this time. Fluid analysis is still pending. TID: [id number] RECEIPT: [id number]
--- NOTE | 2024-10-23 22:18 | PN ---
[facility] PROGRESS NOTE Date Patient Seen: Oct 23, 2024 Time of Visit: 16:14 Supervising Physician: PENNIE TABOR MD Primary Care Physician: DR. Gretta Carmona Outpatient Specialists: Inpatient Consults: BIS, pulmonology Cardiology Cardiovascular PROBLEM LIST: Acute hypoxemic respiratory failure, POA GIANCARLO with reported complications, home nasal CPAP q.h.s., POA Cardiac tamponade s/p pericardial window on 10/21/[address] 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 Cruz Sykes 20-30% LAD and 20-30% mid RCA with normal EF Former smoker Mixed hyperlipidemia Morbid obesity, BMI 49.3 Major depression Lumbar stenosis Right adrenal myelolipoma 01/2021 INTERVAL HISTORY: Patient seen and examined at the bedside, not in distress, has been using his Bipap , but states he does not feel SOB at this time he is status post pericardial window post op day #2, denies chest pain, palpitations or any other issues. REVIEW OF SYSTEMS: 12 point ROS reviewed with patient. Pertinent positives mentioned above. Otherwise negative. PHYSICAL EXAM: GENERAL: alert, awake oriented x 3 HEENT: EOMI, Sclera non icteric, moist mucosa NECK: Supple, no JVD, trachea midline LUNGS: Upper lobes crackles lower lobes diminished sounds bilaterally. No wheezes HEART: Regular rate and rhythm. Normal S1 and S2, without murmurs ABD: Obese. Abdomen soft, nontender. Bowel sounds present EXT: No clubbing cyanosis or edema NEURO: Alert and oriented x3. No neuro deficits. Vital Signs (last 8hr) Date Time Temp Pulse Resp B/P (MAP) Pulse Ox O2 Delivery O2 Flow Rate FiO2 10/23/24 21:35 162/71 10/23/24 20:01 67 18 10/23/24 20:01 87 21 HOME CPAP 2 L BLEED IN 28 10/23/24 20:00 97.9 70 20 162/71 96 Nasal Cannula 2.0 10/23/24 15:51 97.7 70 20 145/76 97 CPAP 10/23/24 14:30 65 18 LABS: Hematology Labs: Test 10/23/24 13:20 Range/Units White Blood Count 12.6 H 4.8-10.8 K/uL Red Blood Count 5.38 4.50-6.20 MIL/uL Hemoglobin 15.0 14.0-18.0 g/dL Hematocrit 44.6 42-54 % Mean Corpuscular Volume 82.9 79-99 fL Mean Corpuscular Hemoglobin 27.9 27.0-33.0 pg Mean Corpuscular Hemoglobin Concent 33.6 32.0-36.0 g/dL Red Cell Distribution Width 13.4 11.0-15.5 % Platelet Count 239 130-400 K/uL Mean Platelet Volume 9.6 7.5-10.5 fL Nucleated Red Blood Cells 0.0 0.0-0.19 % Chemistry Labs: Test 10/23/24 20:09 10/23/24 13:20 10/23/24 11:53 10/22/24 04:07 Range/Units Whole Blood Glucose 254 H 70-110 MG/DL Sodium Level 140 136-145 mmol/L Potassium Level 3.3 L 3.5-5.1 mmol/L Chloride Level 99 L 101-111 mmol/L Carbon Dioxide Level 33 H 21-32 mmol/L Blood Urea Nitrogen 27 H 7-18 mg/dL Creatinine 1.5 H 0.5-1.3 mg/dL Glomerular Filtration Rate Calc 55 >90 mL/min Random Glucose 275 H 70-105 mg/dL Total Calcium 8.8 8.5-10.1 mg/dL Bedside Glucose Comment Notified Nurse Magnesium Level 2.10 1.80-2.40 mg/dL DIAGNOSTICS / RADIOLOGY RESULTS: [ ] PULMONARY PLAN: Obtain CBC, CMP and chest x ray in am Monitor respiratory status closely. Continue oxygen therapy as needed. Titrate oxygen to keep SpO2 equal to 92%. Continue home nasal CPAP. (Patient reports due to anxiety he does not tolerate face mask CPAP) Continue with antibiotic therapy aspiration precautions adequate pain control ATTESTATION BY PHYSICIAN Documentation assistance provided by a scribe, information recorded by the scribe was done at my direction and has been reviewed and validated by me." PENNIE TABOR MD I personally scribed for SHARONA CASPER MD (EMIR) on 10/23/24 at 22:18. Electronically submitted by Silva Adams ([id number]). SHARONA CASPER MD Oct 23, 2024 22:18
--- NOTE | 2024-10-23 22:19 | PN ---
SUBJECTIVE: A 54-year-old gentleman status post pericardial window, coursing postoperative day #2. OBJECTIVE: GENERAL: Awake, alert, in no acute distress. VITAL SIGNS: Stable as recorded in medical record. CHEST: Mini thoracotomy is healing. Chest tube in place. Serosanguineous drainage. HEART: Sounds are crisp. ASSESSMENT: Status post drainage of pericardial window. PROBLEMS: * Pericardial tamponade chest tubes to waterseal. * Fluid overload. Lasix 20 mg twice a day. PLAN: Discontinue chest tube. TID: [id number] RECEIPT: [id number]
--- NOTE | 2024-10-23 23:53 | PN ---
Subjective Review of Systems PROGRESS NOTE Date of Visit: Oct 23, 2024 Time of Visit: 23:53 Events since last encounter DENIES SOB AND CHEST WALL PAIN IS BETTER Subjective UP IN CHAIR AND FEELING BETTER General: No Fever, No Chills, No Night Sweats, No Fatigue, No Malaise, No Appetite, No Other HEENT: No Head Aches, No Visual Changes, No Eye Pain, No Ear Pain, No Dysphasia, No Sinus Congestion, No Post Nasal Drip, No Sore Throat, No Other Pulmonary: No Dyspnea, No Cough, No Pleuritic Chest Pain, No Other Cardiovascular: No: Chest Pain, Palpitations, Orthopnea, Paroxysmal Noc. Dyspnea, Edema, Lt Headedness, Other Gastrointestinal: No: Nausea, Vomiting, Abdominal Pain, Diarrhea, Constipation, Melena, Hematochezia, Other Genitourinary: No Dysuria, No Frequency, No Incontinence, No Hematuria, No Retention, No Other Musculoskeletal: No: other, neck pain, shoulder pain, arm pain, back pain, hand pain, leg pain, foot pain Skin: No Urticaria, No Rash, No Other Neurological: No: Weakness, Numbness, Incoordination, Change in speech, Confusion, Seizures, Other Objective Vitals and I/O Vital Sign (Last 24 Hours) 10/23/24 10/23/24 10/23/24 20:00 20:01 21:35 Temp 97.9 Pulse 67 Resp 18 B/P (MAP) 162/71 Pulse Ox 96 O2 Delivery HOME CPAP 2 L BLEED IN O2 Flow Rate 2.0 FiO2 28 Intake & Output (last 24hrs) 10/22/24 10/22/24 10/23/24 15:00 23:00 07:00 Intake Total 820.0 ml 240 ml 240 ml Output Total 1065 ml 75 ml Balance -245.0 ml 240 ml 165 ml General: Alert, Oriented X3, Cooperative, mild distress HEENT: Atraumatic, PERRLA, EOMI, Mucous membr. moist/pink Neck: Supple, No JVD, No thyromegaly Lungs: Other (DISTANT BS WITH DECREASE AUDIBE WHEEZES) Heart: Regular rate, Regular rhythm, Other (CHEST TUBE IN PLACE) Abdomen: Normal bowel sounds, Soft, No tenderness, No masses Extremities: No clubbing, No cyanosis, No edema, Normal pulses Skin: No rashes, No breakdown, No significant lesion Neuro: Normal tone, Sensation intact, Other (DYSPNEA WITH PROLONGED SENTENCES) Psych/Mental Status: Mental status NL, Mood NL, Thoughts/Content NL Results RADIOLOGY: [] EKG: [] Laboratory Tests Test 10/23/24 05:21 10/23/24 11:53 10/23/24 13:20 10/23/24 17:01 Whole Blood Glucose 188 MG/DL (70-110) H 310 MG/DL (70-110) #H 172 MG/DL (70-110) H Bedside Glucose Comment Notified Nurse White Blood Count 12.6 K/uL (4.8-10.8) H Red Blood Count 5.38 MIL/uL (4.50-6.20) Hemoglobin 15.0 g/dL (14.0-18.0) Hematocrit 44.6 % (42-54) Mean Corpuscular Volume 82.9 fL (79-99) Mean Corpuscular Hemoglobin 27.9 pg (27.0-33.0) Mean Corpuscular Hemoglobin Concent 33.6 g/dL (32.0-36.0) Red Cell Distribution Width 13.4 % (11.0-15.5) Platelet Count 239 K/uL (130-400) Mean Platelet Volume 9.6 fL (7.5-10.5) Nucleated Red Blood Cells 0.0 % (0.0-0.19) Sodium Level 140 mmol/L (136-145) Potassium Level 3.3 mmol/L (3.5-5.1) L Chloride Level 99 mmol/L (101-111) L Carbon Dioxide Level 33 mmol/L (21-32) H Blood Urea Nitrogen 27 mg/dL (7-18) H Creatinine 1.5 mg/dL (0.5-1.3) H Glomerular Filtration Rate Calc 55 mL/min (>90) Random Glucose 275 mg/dL (70-105) H Total Calcium 8.8 mg/dL (8.5-10.1) Test 10/23/24 20:09 Whole Blood Glucose 254 MG/DL (70-110) H Medications Current Medications Albuterol 1 UDVIAL ONCE ONCE IH Last administered on 10/18/24at 10:12; Start 10/18/24 at 09:30; Stop 10/18/24 at 09:31; Status DC Methylprednisolone Sodium Succinate 125 mg ONCE ONCE IVP Last administered on 10/18/24at 09:45; Start 10/18/24 at 09:30; Stop 10/18/24 at 09:31; Status DC Potassium Bicarbonate 50 meq ONCE ONCE PO Last administered on 10/18/24at 10:18; Start 10/18/24 at 10:30; Stop 10/18/24 at 10:31; Status DC Furosemide 40 mg ONCE ONCE IV Last administered on 10/18/24at 10:24; Start 10/18/24 at 10:30; Stop 10/18/24 at 10:31; Status DC Iohexol 35,000 mg STK-MED ONCE IV; Start 10/18/24 at 10:42; Stop 10/18/24 at 10:42; Status DC Acetaminophen 650 mg Q6H PRN PO; Start 10/18/24 at 12:30; Stop 11/17/24 at 12:29 Acetaminophen 650 mg Q4H PRN PO Last administered on 10/21/24at 16:26; Start 10/18/24 at 12:30; Stop 10/22/24 at 13:25; Status DC Ondansetron HCl 4 mg Q6H PRN IV; Start 10/18/24 at 12:30; Stop 11/17/24 at 12:29 Al Hydroxide/Mg Hydroxide 30 ml Q6H PRN PO; Start 10/18/24 at 12:30; Stop 11/17/24 at 12:29 Lactulose 20 gm BID PRN PO; Start 10/18/24 at 12:30; Stop 11/17/24 at 12:29 Guaifenesin/ Dextromethorphan 10 ml Q4H PRN PO; Start 10/18/24 at 12:30; Stop 11/17/24 at 12:29 Albuterol Sulfate 2.5 mg [id number] PRN IH; Start 10/18/24 at 12:30; Stop 11/17/24 at 12:29 Furosemide 40 mg BID IVP Last administered on 10/18/24at 17:51; Start 10/18/24 at 21:00; Stop 10/18/24 at 18:05; Status DC Enoxaparin Sodium 40 mg DAILY SQ; Start 10/19/24 at 09:00; Stop 10/18/24 at 17:44; Status DC Potassium Chloride 20 meq BID PO; Start 10/18/24 at 21:00; Stop 10/18/24 at 18:05; Status DC Dextrose 50 ml AD PRN IV; Start 10/18/24 at 12:30; Stop 11/17/24 at 12:29 Glucagon 1 mg AD PRN IM; Start 10/18/24 at 12:30; Stop 10/19/24 at 12:49; Status DC Potassium Chloride 100 ml @ 100 mls/hr AD PRN IV Last administered on 10/19/24at 06:25; Start 10/18/24 at 12:30; Stop 11/17/24 at 12:29 Potassium Chloride 20 meq AD PRN PO; Start 10/18/24 at 12:30; Stop 11/17/24 at 12:29 Potassium Chloride 20 meq AD PRN PO Last administered on 10/22/24at 06:51; Start 10/18/24 at 12:30; Stop 11/17/24 at 12:29 Magnesium Sulfate 50 ml @ 0 mls/hr PROTOCOL PRN IV; Start 10/18/24 at 12:30; Stop 11/17/24 at 12:29 Albuterol 1 UDVIAL [id number] IH Last administered on 10/19/24at 12:37; Start 10/18/24 at 18:00; Stop 10/19/24 at 12:49; Status DC Buspirone HCl 5 mg BID PRN PO Last administered on 10/23/24at 08:19; Start 10/18/24 at 13:00; Stop 11/17/24 at 12:59 Carvedilol 25 mg BID PO Last administered on 10/23/24at 21:35; Start 10/18/24 at 21:00; Stop 11/17/24 at 20:59 Amlodipine Besylate 10 mg DAILY PO; Start 10/19/24 at 09:00; Stop 10/18/24 at 17:44; Status DC Home Med (Escitalopram Oxalate 10 MG) DAILY PO; Start 10/19/24 at 09:00; Stop 10/18/24 at 17:45; Status DC Hydralazine HCl 100 mg TID PO Last administered on 10/23/24at 21:36; Start 10/18/24 at 14:00; Stop 11/17/24 at 13:59 Home Med (Minoxidil 10 MG) BID PO Last administered on 10/23/24at 21:43; Start 10/18/24 at 21:00; Stop 11/17/24 at 20:59 Atorvastatin Calcium 10 mg HS PO Last administered on 10/23/24at 21:37; Start 10/18/24 at 21:00; Stop 11/17/24 at 20:59 Sacubitril/ Valsartan 1 each BID PO; Start 10/18/24 at 21:00; Stop 10/18/24 at 18:13; Status DC Enoxaparin Sodium 40 mg DAILY SQ Last administered on 10/20/24at 09:19; Start 10/18/24 at 17:44; Stop 10/21/24 at 08:41; Status DC Amlodipine Besylate 10 mg DAILY PO Last administered on 10/23/24at 08:19; Start 10/18/24 at 17:44; Stop 11/17/24 at 17:43 Home Med (Escitalopram Oxalate 10 MG) DAILY PO Last administered on 10/23/24at 10:29; Start 10/18/24 at 17:44; Stop 11/17/24 at 17:43 Carvedilol 25 mg STK-MED ONCE PO Last administered on 10/18/24at 17:53; Start 10/18/24 at 17:47; Stop 10/18/24 at 17:48; Status DC Furosemide 40 mg STK-MED ONCE .ROUTE Last administered on 10/18/24at 17:52; St art 10/18/24 at 17:48; Stop 10/18/24 at 17:48; Status DC Methylprednisolone Sodium Succinate 125 mg STK-MED ONCE .ROUTE Last administered on 10/18/24at 17:52; Start 10/18/24 at 17:48; Stop 10/18/24 at 17:48; Status DC Sacubitril/ Valsartan 1 each STK-MED ONCE PO Last administered on 10/18/24at 17:53; Start 10/18/24 at 17:48; Stop 10/18/24 at 17:48; Status DC Hydralazine HCl 20 mg Q4H PRN IV Last administered on 10/20/24at 23:50; Start 10/18/24 at 18:00; Stop 11/17/24 at 17:59 Nitroglycerin 0.4 mg DAILY TD Last administered on 10/20/24at 16:27; Start 10/18/24 at 18:00; Stop 10/21/24 at 22:29; Status DC Furosemide 40 mg Q8H5 IVP Last administered on 10/21/24at 20:53; Start 10/18/24 at 21:00; Stop 10/21/24 at 22:29; Status DC Potassium Chloride 20 meq TID PO Last administered on 10/22/24at 14:04; Start 10/18/24 at 21:00; Stop 10/22/24 at 20:01; Status DC Methylprednisolone Sodium Succinate 125 mg Q6H IVP Last administered on 10/19/24at 09:31; Start 10/18/24 at 21:00; Stop 10/19/24 at 12:48; Status DC Sacubitril/ Valsartan 1 each BID PO Last administered on 10/23/24at 21:37; Start 10/18/24 at 21:00; Stop 11/17/24 at 20:59 Dextrose 50 ml AD PRN IV; Start 10/18/24 at 18:30; Stop 10/19/24 at 12:49; Status DC Glucagon 1 mg AD PRN IM; Start 10/18/24 at 18:30; Stop 11/17/24 at 18:29 Insulin Human Regular INSULIN SLIDING SCAL... ACHS SQ Last administered on 10/23/24at 21:28; Start 10/18/24 at 21:00; Stop 11/17/24 at 20:59 Methylprednisolone Sodium Succinate 125 mg Q12H9 IVP Last administered on 10/20/24at 09:17; Start 10/19/24 at 21:00; Stop 10/20/24 at 15:26; Status DC Albuterol 1 UDVIAL TIDAC IH Last administered on 10/20/24at 18:59; Start 10/19/24 at 17:00; Stop 10/21/24 at 14:44; Status DC Pantoprazole Sodium 40 mg DAILY PO Last administered on 10/23/24at 08:20; Start 10/21/24 at 09:00; Stop 11/20/24 at 08:59 Potassium Chloride 100 ml @ 50 mls/hr AD PRN IV; Start 10/21/24 at 07:00; Stop 10/21/24 at 06:53; Status DC Sodium Chloride 1,000 ml @ As Directed STK-MED ONCE IV Last administered on 10/21/24at 07:37; Start 10/21/24 at 07:13; Stop 10/21/24 at 07:13; Status DC Dexamethasone Sodium Phosphate 10 mg STK-MED ONCE .ROUTE; Start 10/21/24 at 07:57; Stop 10/21/24 at 07:57; Status DC Lidocaine HCl 100 mg STK-MED ONCE .ROUTE; Start 10/21/24 at 07:57; Stop 10/21/24 at 07:58; Status DC Ondansetron HCl 4 mg STK-MED ONCE .ROUTE; Start 10/21/24 at 07:57; Stop 10/21/24 at 07:58; Status DC Propofol 200 mg STK-MED ONCE IV; Start 10/21/24 at 07:58; Stop 10/21/24 at 07:58; Status DC Succinylcholine Chloride 200 mg STK-MED ONCE .ROUTE; Start 10/21/24 at 07:58; Stop 10/21/24 at 07:58; Status DC Rocuronium Bimble 50 mg STK-MED ONCE .ROUTE; Start 10/21/24 at 07:58; Stop 10/21/24 at 07:59; Status DC Midazolam HCl 2 mg STK-MED ONCE .ROUTE; Start 10/21/24 at 07:59; Stop 10/21/24 at 07:59; Status DC Fentanyl Citrate 100 mcg STK-MED ONCE .ROUTE; Start 10/21/24 at 08:10; Stop 10/21/24 at 08:10; Status DC Midazolam HCl 2 mg STK-MED ONCE .ROUTE; Start 10/21/24 at 08:34; Stop 10/21/24 at 08:34; Status DC Acetaminophen 650 mg Q6H PRN PO; Start 10/21/24 at 09:00; Stop 10/21/24 at 08:44; Status DC Tramadol HCl 50 mg Q6H PRN PO; Start 10/21/24 at 09:00; Stop 10/21/24 at 13:17; Status DC Tramadol HCl 100 mg Q6H PRN PO Last administered on 10/21/24at 09:59; Start 10/21/24 at 09:00; Stop 10/21/24 at 13:17; Status DC Cefazolin Sodium 2 gm Q8H IVPB Last administered on 10/22/24at 08:03; Start 10/21/24 at 17:00; Stop 10/22/24 at 09:01; Status DC Glycopyrrolate 1 mg STK-MED ONCE .ROUTE; Start 10/21/24 at 09:04; Stop 10/21/24 at 09:04; Status DC Neostigmine Methylsulfate 10 mg STK-MED ONCE IV; Start 10/21/24 at 09:04; Stop 10/21/24 at 09:04; Status DC Neostigmine Methylsulfate 10 mg STK-MED ONCE IV; Start 10/21/24 at 09:05; Stop 10/21/24 at 09:05; Status DC Fentanyl Citrate 100 mcg STK-MED ONCE .ROUTE; Start 10/21/24 at 09:12; Stop 10/21/24 at 09:12; Status DC Fentanyl Citrate 100 mcg STK-MED ONCE .ROUTE; Start 10/21/24 at 09:16; Stop 10/21/24 at 09:16; Status DC Cefazolin Sodium 2 gm STK-MED ONCE IVPB Last administered on 10/21/24at 08:30; Start 10/21/24 at 08:30; Stop 10/21/24 at 10:17; Status DC Acetaminophen/ Hydrocodone Bitart 1.5 tab Q4H PRN PO Last administered on 10/21/24at 10:54; Start 10/21/24 at 11:00; Stop 10/21/24 at 13:17; Status DC Morphine Sulfate 2 mg Q3H3 PRN IVP Last administered on 10/22/24at 02:55; Start 10/21/24 at 13:30; Stop 10/22/24 at 13:33; Status DC Morphine Sulfate 4 mg Q3H3 PRN IVP Last administered on 10/22/24at 07:59; Star t 10/21/24 at 13:30; Stop 10/22/24 at 09:50; Status DC Albuterol 1 UDVIAL TID IH Last administered on 10/23/24at 19:59; Start 10/21/24 at 21:00; Stop 11/17/24 at 17:59 Albuterol 1 udvial STK-MED ONCE IH Last administered on 10/21/24at 19:35; Start 10/21/24 at 18:26; Stop 10/21/24 at 18:27; Status DC Furosemide 80 mg BID@17 PO Last administered on 10/23/24at 16:28; Start 1 12/23/23 at 09:00; Stop 11/21/24 at 08:59 Ketorolac Tromethamine 30 mg Q6H PRN IVP Last administered on 10/22/24at 10:33; Start 10/22/24 at 10:00; Stop 10/27/24 at 09:59 Gabapentin 300 mg ONCE ONCE PO Last administered on 10/22/24at 14:06; Start 10/22/24 at 13:30; Stop 10/22/24 at 13:31; Status DC Gabapentin 300 mg BID PO Last administered on 10/23/24at 21:37; Start 10/22/24 at 21:00; Stop 11/21/24 at 20:59 Docusate Sodium 100 mg TID PO Last administered on 10/23/24at 21:38; Start 10/22/24 at 14:00; Stop 11/21/24 at 13:59 Acetaminophen 500 mg TID PO Last administered on 10/23/24at 21:38; Start 10/22/24 at 14:00; Stop 11/21/24 at 13:59 Acetaminophen/ Hydrocodone Bitart 1 tab Q6H PRN PO Last administered on 10/22/24at 18:25; Start 10/22/24 at 13:30; Stop 10/29/24 at 13:29 Sennosides 2 tab HS PO Last administered on 10/23/24at 21:37; Start 10/22/24 at 21:00; Stop 11/21/24 at 20:59 Magnesium Oxide 400 mg HS PO Last administered on 10/23/24at 21:37; Start 10/22/24 at 21:00; Stop 11/21/24 at 20:59 Metolazone 5 mg ONCE ONCE PO Last administered on 10/22/24at 18:07; Start 10/22/24 at 17:30; Stop 10/22/24 at 17:31; Status DC Potassium Chloride 20 meq QID PO Last administered on 10/23/24at 21:36; Start 10/22/24 at 20:00; Stop 11/17/24 at 20:59 Methylprednisolone Sodium Succinate 125 mg ONCE ONCE IVP Last administered on 10/22/24at 23:05; Start 10/22/24 at 22:30; Stop 10/22/24 at 22:31; Status DC Methylprednisolone Sodium Succinate 60 mg Q8H IVP Last administered on 10/23/24at 06:44; Start 10/22/24 at 06:30; Stop 10/23/24 at 07:58; Status DC Methylprednisolone Sodium Succinate 60 mg Q8H IVP Last administered on 10/23/24at 14:05; Start 10/23/24 at 14:30; Stop 11/21/24 at 06:29 Doxycycline Hyclate 250 ml @ 125 mls/hr Q12H IV Last administered on 10/23/24at 21:30; Start 10/23/24 at 08:30; Stop 11/02/24 at 08:29 Assessment/Plan RADIOLOGY CHEST 1VW 10/18/2024 FINDINGS: There is stable cardial megaly. There is mild vascular congestion. Lungs are otherwise clear. Mediastinum and bony thorax appear unremarkable. IMPRESSION: Cardiomegaly with vascular congestion consistent with CHF. CT CHEST PE PROTOCOL WWO CONT 10/19/2024 FINDINGS: Lungs are clear. There are no focal masses or infiltrates. There is cardiomegaly accentuated by a moderate pericardial effusion, the effusion measures 2 cm along the left heart margin. There is no hilar or mediastinal lymphadenopathy. Chest wall structures appear normal as do visualized upper abdominal structures. Contrast outlines normal appearing central pulmonary arteries. There is no CT evidence of PE. The a sending aorta appears normal without aneurysm or dissection. IMPRESSION: 1. There is cardiomegaly, there is also moderate pericardial effusion. 2. No CT evidence of PE. 2DECHO 10/19/2024 Left Ventricle cavity size is normal. Severe concentric left ventricular hypertrophy. LVEF is >65%. The LV diastolic function was unable to be assessed Right Ventricle is severely dilated. The right ventricular systolic function is normal. Atria The left atrium is severely dilated. The right atrium is moderately to severely dilated. Aortic Valve is normal in structure and function. No aortic regurgitation is present. There is no aortic valvular stenosis. Mitral Valve leaflets open well. There is mild mitral valve regurgitation noted. There is no mitral valve stenosis. Tricuspid Valve is normal in structure and function. There is trace of tricuspid valve regurgitation noted. Pulmonic Valve is normal in structure and function. There is no pulmonic valvular regurgitation. Great Vessels The aortic root is normal in size. IVC is dilated and collapses >50% with inspiration. Pericardium Large pericardial effusion. No RV diastolic collapse. Quality : Technically difficult due to body habitus Conclusion Left ventricular cavity size is normal. Severe concentric left ventricular hypertrophy. LVEF is >65%. The LV diastolic function was unable to be assessed The right ventricle is severely dilated. The right ventricular systolic function is normal. The left atrium is severely dilated. The right atrium is moderately to severely dilated. There is mild mitral valve regurgitation noted. IVC is dilated and collapses >50% with inspiration. Large pericardial effusion. No RV diastolic collapse. CHEST 1VW 10/21/2024 FINDINGS: A frontal projection of the chest was obtained. There are bilateral pulmonary infiltrates suggestive of pulmonary vascular congestion with possible superimposed pneumonitis. The heart is borderline enlarged. Degenerative changes are seen. No evidence of aortic calcification is seen. IMPRESSION: Bilateral pulmonary infiltrates are seen suggestive of pulmonary vascular congestion with possible superimposed pneumonitis. CHEST 1VW 10/22/2024 FINDINGS: A frontal projection of the chest was obtained. Mild bilateral pulmonary infiltrates are seen may be related to mild pulmonary vascular congestion with possible superimposed pneumonitis. The heart is enlarged. Mild degenerative changes are seen. No evidence of aortic calcification is seen. IMPRESSION: Mild bilateral pulmonary infiltrates are seen may be related to mild pulmonary vascular congestion with possible superimposed pneumonitis. Procedure : PERICARDIAL WINDOW DATE : 10/21/2024 PRE AND POST OP DIAGNOSIS : PERICARDIAL EFFUSION SURGEON : DR AQUINO FINDINGS: The patient had 700 mL of clear pericardial fluid. The pericardium did not appear inflamed. The fluid was under pressure. 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 AND INCREASE AMBULATION PPI FOR STRESS ULCER PROPHYLAXIS CR TABARES MD Oct 23, 2024 23:53
[2024-10-24] VITALS (16 sets, daily range): BP systolic 97–142; BP diastolic 47–81; PULSE 59–89; RESP 18–22; TEMP 97.7–98.6; O2SAT 95–96
[2024-10-24] MEDS ORDERED: HYDROcodone/APAP 5/325 1 TAB TABLET PO PRN
[2024-10-24] MEDS ORDERED: cloNIDine HCL 0.1 MG TABLET PO PRN (00:30)
[2024-10-24 05:05] LABS: HEMATOCRIT 43.3 % (42-54); MEAN CORPUSCULAR HGB CONC 33.5 g/dL (32.0-36.0); MEAN CORPUSCULAR VOLUME 83.6 fL (79-99); RED BLOOD CELL COUNT(AUTO) 5.18 MIL/uL (4.50-6.20); RED CELL DISTRIBUTION WIDTH 13.5 % (11.0-15.5); WHITE BLOOD COUNT (AUTO) 16.7 K/uL (4.8-10.8)
[2024-10-24 05:17] LABS: CREATININE 1.5 mg/dL (0.5-1.3); POTASSIUM 3.5 mmol/L (3.5-5.1)
[2024-10-24] MEDS: furoSEMIDE 80 MG TABLET PO SCH (10:05)
--- NOTE | 2024-10-24 11:09 | HMCIMG ---
CHEST 1VW HISTORY: Status post pericardial window COMPARISON: 10/22/2024 FINDINGS: A frontal projection of the chest was obtained. Mild bilateral pulmonary infiltrates are seen may be related to mild pulmonary vascular congestion with possible superimposed pneumonitis. The heart is borderline enlarged. Degenerative changes are seen. No evidence of aortic calcification is seen. IMPRESSION: 1. Mild bilateral pulmonary infiltrates are seen may be related to mild pulmonary vascular congestion with possible superimposed pneumonitis.
--- NOTE | 2024-10-24 13:29 | PN ---
Subjective Review of Systems PROGRESS NOTE Date of Visit: Oct 24, 2024 Time of Visit: 13:24 Events since last encounter C/O DIZZINESS EARLIER TODAY Subjective UP IN CHAIR AND FEELING BETTER General: No Fever, No Chills, No Night Sweats, No Fatigue, No Malaise, No Appetite, No Other HEENT: No Head Aches, No Visual Changes, No Eye Pain, No Ear Pain, No Dysphasia, No Sinus Congestion, No Post Nasal Drip, No Sore Throat, No Other Pulmonary: No Dyspnea, No Cough, No Pleuritic Chest Pain, No Other Cardiovascular: No: Chest Pain, Palpitations, Orthopnea, Paroxysmal Noc. Dyspnea, Edema, Lt Headedness, Other Gastrointestinal: No: Nausea, Vomiting, Abdominal Pain, Diarrhea, Constipation, Melena, Hematochezia, Other Genitourinary: No Dysuria, No Frequency, No Incontinence, No Hematuria, No Retention, No Other Musculoskeletal: No: other, neck pain, shoulder pain, arm pain, back pain, hand pain, leg pain, foot pain Skin: No Urticaria, No Rash, No Other Neurological: No: Weakness, Numbness, Incoordination, Change in speech, Confusion, Seizures, Other Objective Vitals and I/O Vital Sign (Last 24 Hours) 10/24/24 10/24/24 10/24/24 08:45 11:00 12:30 Temp 98.1 Pulse 67 Resp 22 B/P (MAP) 99/48 Pulse Ox 96 O2 Delivery Room Air O2 Flow Rate 0.0 FiO2 21 Intake & Output (last 24hrs) 10/23/24 10/23/24 10/24/24 15:00 23:00 07:00 Intake Total 730.0 ml 490.0 ml 240 ml Output Total 1475 ml 390 ml 310 ml Balance -745.0 ml 100.0 ml -70 ml General: Alert, Oriented X3, Cooperative, mild distress HEENT: Atraumatic, PERRLA, EOMI, Mucous membr. moist/pink Neck: Supple, No JVD, No thyromegaly Lungs: Other (DISTANT BS WITH DECREASE AUDIBE WHEEZES) Heart: Regular rate, Regular rhythm, Other (CHEST TUBE IN PLACE) Abdomen: Normal bowel sounds, Soft, No tenderness, No masses Extremities: No clubbing, No cyanosis, No edema, Normal pulses Skin: No rashes, No breakdown, No significant lesion Neuro: Normal tone, Sensation intact, Other (DYSPNEA WITH PROLONGED SENTENCES) Psych/Mental Status: Mental status NL, Mood NL, Thoughts/Content NL Results RADIOLOGY: [] EKG: [] Laboratory Tests Test 10/23/24 17:01 10/23/24 20:09 10/24/24 04:31 10/24/24 06:01 Whole Blood Glucose 172 MG/DL (70-110) H 254 MG/DL (70-110) H 206 MG/DL (70-110) H White Blood Count 16.7 K/uL (4.8-10.8) #H Red Blood Count 5.18 MIL/uL (4.50-6.20) Hemoglobin 14.5 g/dL (14.0-18.0) Hematocrit 43.3 % (42-54) Mean Corpuscular Volume 83.6 fL (79-99) Mean Corpuscular Hemoglobin 28.0 pg (27.0-33.0) Mean Corpuscular Hemoglobin Concent 33.5 g/dL (32.0-36.0) Red Cell Distribution Width 13.5 % (11.0-15.5) Platelet Count 255 K/uL (130-400) Mean Platelet Volume 10.0 fL (7.5-10.5) Nucleated Red Blood Cells 0.0 % (0.0-0.19) Sodium Level 143 mmol/L (136-145) Potassium Level 3.5 mmol/L (3.5-5.1) Chloride Level 102 mmol/L (101-111) Carbon Dioxide Level 36 mmol/L (21-32) H Blood Urea Nitrogen 34 mg/dL (7-18) H Creatinine 1.5 mg/dL (0.5-1.3) H Glomerular Filtration Rate Calc 55 mL/min (>90) Random Glucose 213 mg/dL (70-105) H Total Calcium 9.0 mg/dL (8.5-10.1) Test 10/24/24 10:42 Whole Blood Glucose 327 MG/DL (70-110) #H Bedside Glucose Comment Notified Nurse Medications Current Medications Albuterol 1 UDVIAL ONCE ONCE IH Last administered on 10/18/24at 10:12; Start 10/18/24 at 09:30; Stop 10/18/24 at 09:31; Status DC Methylprednisolone Sodium Succinate 125 mg ONCE ONCE IVP Last administered on 10/18/24at 09:45; Start 10/18/24 at 09:30; Stop 10/18/24 at 09:31; Status DC Potassium Bicarbonate 50 meq ONCE ONCE PO Last administered on 10/18/24at 10:18; Start 10/18/24 at 10:30; Stop 10/18/24 at 10:31; Status DC Furosemide 40 mg ONCE ONCE IV Last administered on 10/18/24at 10:24; Start 10/18/24 at 10:30; Stop 10/18/24 at 10:31; Status DC Iohexol 35,000 mg STK-MED ONCE IV; Start 10/18/24 at 10:42; Stop 10/18/24 at 10:42; Status DC Acetaminophen 650 mg Q6H PRN PO; Start 10/18/24 at 12:30; Stop 11/17/24 at 12:29 Acetaminophen 650 mg Q4H PRN PO Last administered on 10/21/24at 16:26; Start 10/18/24 at 12:30; Stop 10/22/24 at 13:25; Status DC Ondansetron HCl 4 mg Q6H PRN IV; Start 10/18/24 at 12:30; Stop 11/17/24 at 12:29 Al Hydroxide/Mg Hydroxide 30 ml Q6H PRN PO; Start 10/18/24 at 12:30; Stop 11/17/24 at 12:29 Lactulose 20 gm BID PRN PO; Start 10/18/24 at 12:30; Stop 11/17/24 at 12:29 Guaifenesin/ Dextromethorphan 10 ml Q4H PRN PO; Start 10/18/24 at 12:30; Stop 11/17/24 at 12:29 Albuterol Sulfate 2.5 mg [id number] PRN IH; Start 10/18/24 at 12:30; Stop 11/17/24 at 12:29 Furosemide 40 mg BID IVP Last administered on 10/18/24at 17:51; Start 10/18/24 at 21:00; Stop 10/18/24 at 18:05; Status DC Enoxaparin Sodium 40 mg DAILY SQ; Start 10/19/24 at 09:00; Stop 10/18/24 at 17:44; Status DC Potassium Chloride 20 meq BID PO; Start 10/18/24 at 21:00; Stop 10/18/24 at 18:05; Status DC Dextrose 50 ml AD PRN IV; Start 10/18/24 at 12:30; Stop 11/17/24 at 12:29 Glucagon 1 mg AD PRN IM; Start 10/18/24 at 12:30; Stop 10/19/24 at 12:49; Status DC Potassium Chloride 100 ml @ 100 mls/hr AD PRN IV Last administered on 10/19/24at 06:25; Start 10/18/24 at 12:30; Stop 11/17/24 at 12:29 Potassium Chloride 20 meq AD PRN PO; Start 10/18/24 at 12:30; Stop 11/17/24 at 12:29 Potassium Chloride 20 meq AD PRN PO Last administered on 10/22/24at 06:51; Start 10/18/24 at 12:30; Stop 11/17/24 at 12:29 Magnesium Sulfate 50 ml @ 0 mls/hr PROTOCOL PRN IV; Start 10/18/24 at 12:30; Stop 11/17/24 at 12:29 Albuterol 1 UDVIAL [id number] IH Last administered on 10/19/24at 12:37; Start 10/18/24 at 18:00; Stop 10/19/24 at 12:49; Status DC Buspirone HCl 5 mg BID PRN PO Last administered on 10/23/24at 08:19; Start 10/18/24 at 13:00; Stop 11/17/24 at 12:59 Carvedilol 25 mg BID PO Last administered on 10/24/24at 10:03; Start 10/18/24 at 21:00; Stop 11/17/24 at 20:59 Amlodipine Besylate 10 mg DAILY PO; Start 10/19/24 at 09:00; Stop 10/18/24 at 17:44; Status DC Home Med (Escitalopram Oxalate 10 MG) DAILY PO; Start 10/19/24 at 09:00; Stop 10/18/24 at 17:45; Status DC Hydralazine HCl 100 mg TID PO Last administered on 10/24/24at 10:03; Start 10/18/24 at 14:00; Stop 11/17/24 at 13:59 Home Med (Minoxidil 10 MG) BID PO Last administered on 10/24/24at 10:07; Start 10/18/24 at 21:00; Stop 10/24/24 at 13:18; Status DC Atorvastatin Calcium 10 mg HS PO Last administered on 10/23/24at 21:37; Start 10/18/24 at 21:00; Stop 11/17/24 at 20:59 Sacubitril/ Valsartan 1 each BID PO; Start 10/18/24 at 21:00; Stop 10/18/24 at 18:13; Status DC Enoxaparin Sodium 40 mg DAILY SQ Last administered on 10/20/24at 09:19; Start 10/18/24 at 17:44; Stop 10/21/24 at 08:41; Status DC Amlodipine Besylate 10 mg DAILY PO Last administered on 10/24/24at 10:03; Start 10/18/24 at 17:44; Stop 11/17/24 at 17:43 Home Med (Escitalopram Oxalate 10 MG) DAILY PO Last administered on 10/24/24at 10:07; Start 10/18/24 at 17:44; Stop 11/17/24 at 17:43 Carvedilol 25 mg STK-MED ONCE PO Last administered on 10/18/24at 17:53; Start 10/18/24 at 17:47; Stop 10/18/24 at 17:48; Status DC Furosemide 40 mg STK-MED ONCE .ROUTE Last administered on 10/18/24at 17:52; Start 10/18/24 at 17:48; Stop 10/18/24 at 17:48; Status DC Methylprednisolone Sodium Succinate 125 mg STK-MED ONCE .ROUTE Last administered on 10/18/24at 17:52; Start 10/18/24 at 17:48; Stop 10/18/24 at 17:48; Status DC Sacubitril/ Valsartan 1 each STK-MED ONCE PO Last administered on 10/18/24at 17:53; Start 10/18/24 at 17:48; Stop 10/18/24 at 17:48; Status DC Hydralazine HCl 20 mg Q4H PRN IV Last administered on 10/20/24at 23:50; Start 10/18/24 at 18:00; Stop 10/24/24 at 00:00; Status DC Nitroglycerin 0.4 mg DAILY TD Last administered on 10/20/24at 16:27; Start 10/18/24 at 18:00; Stop 10/21/24 at 22:29; Status DC Furosemide 40 mg Q8H5 IVP Last administered on 10/21/24at 20:53; Start 10/18/24 at 21:00; Stop 10/21/24 at 22:29; Status DC Potassium Chloride 20 meq TID PO Last administered on 10/22/24at 14:04; Start 10/18/24 at 21:00; Stop 10/22/24 at 20:01; Status DC Methylprednisolone Sodium Succinate 125 mg Q6H IVP Last administered on 10/19/24at 09:31; Start 10/18/24 at 21:00; Stop 10/19/24 at 12:48; Status DC Sacubitril/ Valsartan 1 each BID PO Last administered on 10/24/24at 10:01; Start 10/18/24 at 21:00; Stop 11/17/24 at 20:59 Dextrose 50 ml AD PRN IV; Start 10/18/24 at 18:30; Stop 10/19/24 at 12:49; Status DC Glucagon 1 mg AD PRN IM; Start 10/18/24 at 18:30; Stop 11/17/24 at 18:29 Insulin Human Regular INSULIN SLIDING SCAL... ACHS SQ Last administered on 10/06 07/30at 11:47; Start 10/18/24 at 21:00; Stop 11/17/24 at 20:59 Methylprednisolone Sodium Succinate 125 mg Q12H9 IVP Last administered on 10/20/24at 09:17; Start 10/19/24 at 21:00; Stop 10/20/24 at 15:26; Status DC Albuterol 1 UDVIAL TIDAC IH Last administered on 10/20/24at 18:59; Start 10/19/24 at 17:00; Stop 10/21/24 at 14:44; Status DC Pantoprazole Sodium 40 mg DAILY PO Last administered on 10/24/24at 10:02; Start 10/21/24 at 09:00; Stop 11/20/24 at 08:59 Potassium Chloride 100 ml @ 50 mls/hr AD PRN IV; Start 10/21/24 at 07:00; Stop 10/21/24 at 06:53; Status DC Sodium Chloride 1,000 ml @ As Directed STK-MED ONCE IV Last administered on 10/21/24at 07:37; Start 10/21/24 at 07:13; Stop 10/21/24 at 07:13; Status DC Dexamethasone Sodium Phosphate 10 mg STK-MED ONCE .ROUTE; Start 10/21/24 at 07:57; Stop 10/21/24 at 07:57; Status DC Lidocaine HCl 100 mg STK-MED ONCE .ROUTE; Start 10/21/24 at 07:57; Stop 10/21/24 at 07:58; Status DC Ondansetron HCl 4 mg STK-MED ONCE .ROUTE; Start 10/21/24 at 07:57; Stop 10/21/24 at 07:58; Status DC Propofol 200 mg STK-MED ONCE IV; Start 10/21/24 at 07:58; Stop 10/21/24 at 07:58; Status DC Succinylcholine Chloride 200 mg STK-MED ONCE .ROUTE; Start 10/21/24 at 07:58; Stop 10/21/24 at 07:58; Status DC Rocuronium [place] 50 mg STK-MED ONCE .ROUTE; Start 10/21/24 at 07:58; Stop 10/21/24 at 07:59; Status DC Midazolam HCl 2 mg STK-MED ONCE .ROUTE; Start 10/21/24 at 07:59; Stop 10/21/24 at 07:59; Status DC Fentanyl Citrate 100 mcg STK-MED ONCE .ROUTE; Start 10/21/24 at 08:10; Stop 10/21/24 at 08:10; Status DC Midazolam HCl 2 mg STK-MED ONCE .ROUTE; Start 10/21/24 at 08:34; Stop 10/21/24 at 08:34; Status DC Acetaminophen 650 mg Q6H PRN PO; Start 10/21/24 at 09:00; Stop 10/21/24 at 08:44; Status DC Tramadol HCl 50 mg Q6H PRN PO; Start 10/21/24 at 09:00; Stop 10/21/24 at 13:17; Status DC Tramadol HCl 100 mg Q6H PRN PO Last administered on 10/21/24at 09:59; Start 10/21/24 at 09:00; Stop 10/21/24 at 13:17; Status DC Cefazolin Sodium 2 gm Q8H IVPB Last administered on 10/22/24at 08:03; Start 10/21/24 at 17:00; Stop 10/22/24 at 09:01; Status DC Glycopyrrolate 1 mg STK-MED ONCE .ROUTE; Start 10/21/24 at 09:04; Stop 10/21/24 at 09:04; Status DC Neostigmine Methylsulfate 10 mg STK-MED ONCE IV; Start 10/21/24 at 09:04; Stop 10/21/24 at 09:04; Status DC Neostigmine Methylsulfate 10 mg STK-MED ONCE IV; Start 10/21/24 at 09:05; Stop 10/21/24 at 09:05; Status DC Fentanyl Citrate 100 mcg STK-MED ONCE .ROUTE; Start 10/21/24 at 09:12; Stop 10/21/24 at 09:12; Status DC Fentanyl Citrate 100 mcg STK-MED ONCE .ROUTE; Start 10/21/24 at 09:16; Stop 10/21/24 at 09:16; Status DC Cefazolin Sodium 2 gm STK-MED ONCE IVPB Last administered on 10/21/24at 08:30; Start 10/21/24 at 08:30; Stop 10/21/24 at 10:17; Status DC Acetaminophen/ Hydrocodone Bitart 1.5 tab Q4H PRN PO Last administered on 10/21/24at 10:54; Start 10/21/24 at 11:00; Stop 10/21/24 at 13:17; Status DC Morphine Sulfate 2 mg Q3H3 PRN IVP Last administered on 10/22/24at 02:55; Start 10/21/24 at 13:30; Stop 10/22/24 at 13:33; Status DC Morphine Sulfate 4 mg Q3H3 PRN IVP Last administered on 10/22/24at 07:59; Start 10/21/24 at 13:30; Stop 10/22/24 at 09:50; Status DC Albuterol 1 UDVIAL TID IH Last administered on 10/24/24at 07:17; Start 10/21/24 at 21:00; Stop 11/17/24 at 17:59 Albuterol 1 udvial STK-MED ONCE IH Last administered on 10/21/24at 19:35; Start 10/21/24 at 18:26; Stop 10/21/24 at 18:27; Status DC Furosemide 80 mg BID@,17 PO Last administered on 10/23/24at 16:28; Start 10/22/24 at 09:00; Stop 10/24/24 at 00:19; Status DC Ketorolac Tromethamine 30 mg Q6H PRN IVP Last administered on 10/22/24at 10:33; Start 10/22/24 at 10:00; Stop 10/24/24 at 00:00; Status DC Gabapentin 300 mg ONCE ONCE PO Last administered on 10/22/24at 14:06; Start 10/22/24 at 13:30; Stop 10/22/24 at 13:31; Status DC Gabapentin 300 mg BID PO Last administered on 10/24/24at 10:03; Start 10/22/24 at 21:00; Stop 11/21/24 at 20:59 Docusate Sodium 100 mg TID PO Last administered on 10/24/24at 10:02; Start 10/22/24 at 14:00; Stop 11/21/24 at 13:59 Acetaminophen 500 mg TID PO Last administered on 10/24/24at 10:02; Start 10/22/24 at 14:00; Stop 11/21/24 at 13:59 Acetaminophen/ Hydrocodone Bitart 1 tab Q6H PRN PO Last administered on 10/22/24at 18:25; Start 10/22/24 at 13:30; Stop 10/29/24 at 13:29 Sennosides 2 tab HS PO Last administered on 10/23/24at 21:37; Start 10/22/24 at 21:00; Stop 11/21/24 at 20:59 Magnesium Oxide 400 mg HS PO Last administered on 10/23/24at 21:37; Start 10/22/24 at 21:00; Stop 11/21/24 at 20:59 Metolazone 5 mg ONCE ONCE PO Last administered on 10/22/24at 18:07; Start 10/22/24 at 17:30; Stop 10/22/24 at 17:31; Status DC Potassium Chloride 20 meq QID PO Last administered on 10/24/24at 10:04; Start 10/22/24 at 20:00; Stop 10/24/24 at 13:18; Status DC Methylprednisolone Sodium Succinate 125 mg ONCE ONCE IVP Last administered on 10/22/24at 23:05; Start 10/22/24 at 22:30; Stop 10/22/24 at 22:31; Status DC Methylprednisolone Sodium Succinate 60 mg Q8H IVP Last administered on 10/23/24at 06:44; Start 10/22/24 at 06:30; Stop 10/23/24 at 07:58; Status DC Methylprednisolone Sodium Succinate 60 mg Q8H IVP Last administered on 10/24/24at 07:37; Start 10/23/24 at 14:30; Stop 11/21/24 at 06:29 Doxycycline Hyclate 250 ml @ 125 mls/hr Q12H IV Last administered on 10/24/24at 10:01; Start 10/23/24 at 08:30; Stop 11/02/24 at 08:29 Acetaminophen/ Hydrocodone Bitart 1 tab Q6H PRN PO; Start 10/24/24 at 00:00; Stop 10/29/24 at 00:00 Furosemide 40 mg BID@09,17 PO Last administered on 10/24/24at 10:05; Start 10/24/24 at 09:00; Stop 10/24/24 at 13:18; Status DC Clonidine HCl 0.1 mg Q6H PRN PO; Start 10/24/24 at 00:30; Stop 11/23/24 at 00:29 Potassium Chloride 20 meq DAILY PO; Start 10/25/24 at 09:00; Stop 11/17/24 at 20:59 Assessment/Plan RADIOLOGY CHEST 1VW 10/18/2024 FINDINGS: There is stable cardial megaly. There is mild vascular congestion. Lungs are otherwise clear. Mediastinum and bony thorax appear unremarkable. IMPRESSION: Cardiomegaly with vascular congestion consistent with CHF. CT CHEST PE PROTOCOL WWO CONT 10/19/2024 FINDINGS: Lungs are clear. There are no focal masses or infiltrates. There is cardiomegaly accentuated by a moderate pericardial effusion, the effusion measures 2 cm along the left heart margin. There is no hilar or mediastinal lymphadenopathy. Chest wall structures appear normal as do visualized upper abdominal structures. Contrast outlines normal appearing central pulmonary arteries. There is no CT evidence of PE. The a sending aorta appears normal without aneurysm or dissection. IMPRESSION: 1. There is cardiomegaly, there is also moderate pericardial effusion. 2. No CT evidence of PE. 2DECHO 10/19/2024 Left Ventricle cavity size is normal. Severe concentric left ventricular hypertrophy. LVEF is >65%. The LV diastolic function was unable to be assessed Right Ventricle is severely dilated. The right ventricular systolic function is normal. Atria The left atrium is severely dilated. The right atrium is moderately to severely dilated. Aortic Valve is normal in structure and function. No aortic regurgitation is present. There is no aortic valvular stenosis. Mitral Valve leaflets open well. There is mild mitral valve regurgitation noted. There is no mitral valve stenosis. Tricuspid Valve is normal in structure and function. There is trace of tricuspid valve regurgitation noted. Pulmonic Valve is normal in structure and function. There is no pulmonic v alvular regurgitation. Great Vessels The aortic root is normal in size. IVC is dilated and collapses >50% with inspiration. Pericardium Large pericardial effusion. No RV diastolic collapse. Quality : Technically difficult due to body habitus Conclusion Left ventricular cavity size is normal. Severe concentric left ventricular hypertrophy. LVEF is >65%. The LV diastolic function was unable to be assessed The right ventricle is severely dilated. The right ventricular systolic function is normal. The left atrium is severely dilated. The right atrium is moderately to severely dilated. There is mild mitral valve regurgitation noted. IVC is dilated and collapses >50% with inspiration. Large pericardial effusion. No RV diastolic collapse. CHEST 1VW 10/21/2024 FINDINGS: A frontal projection of the chest was obtained. There are bilateral pulmonary infiltrates suggestive of pulmonary vascular congestion with possible superimposed pneumonitis. The heart is borderline enlarged. Degenerative changes are seen. No evidence of aortic calcification is seen. IMPRESSION: Bilateral pulmonary infiltrates are seen suggestive of pulmonary vascular congestion with possible superimposed pneumonitis. CHEST 1VW 10/22/2024 FINDINGS: A frontal projection of the chest was obtained. Mild bilateral pulmonary infiltrates are seen may be related to mild pulmonary vascular congestion with possible superimposed pneumonitis. The heart is enlarged. Mild degenerative changes are seen. No evidence of aortic calcification is seen. IMPRESSION: Mild bilateral pulmonary infiltrates are seen may be related to mild pulmonary vascular congestion with possible superimposed pneumonitis. Procedure : PERICARDIAL WINDOW DATE : 10/21/2024 PRE AND POST OP DIAGNOSIS : PERICARDIAL EFFUSION SURGEON : DR AQUINO FINDINGS: The patient had 700 mL of clear pericardial fluid. The pericardium did not appear inflamed. The fluid was under pressure. CHEST 1VW 10/24/2024 FINDINGS: A frontal projection of the chest was obtained. Mild bilateral pulmonary infiltrates are seen may be related to mild pulmonary vascular congestion with possible superimposed pneumonitis. The heart is borderline enlarged. Degenerative changes are seen. No evidence of aortic calcification is seen. IMPRESSION: Mild bilateral pulmonary infiltrates are seen may be related to mild pulmonary vascular congestion with possible superimposed pneumonitis. 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) PRESENTED WITH ACUTE ON CHRONIC DIASTOLIC CHF EXACERBATION ACUTE HYPOXIC RESPIRATORY FAILURE LARGE PERICARDIAL EFFUSION BY ECHO WITH EF 65% COPD EX HYPERTENSIVE URGENCY HYPOKALEMIA S/P PERICARDIA WINDOW 10/21/2024 700 CC FLUID DRAINED PLAN: PROBLEMS WITH HYPOTENSION THIS AM AND INC IN RENAL FN WILL HOLD DIURETICS FOR NOW D/C MINOXIDIL AND CHANGE HYDRALAZINE TO PRN CONT COREG AND ENTRESTO CONT TYLENOL AND GABAPENTIN FOR PAIN WEANING NARCOTICS CATHARTICS FOR CONSTIPATION AVOID TRAMADOL WITH SSRI CONT CPAP QHS AND PRN CONT IV STEROIDS AND IV DOXYCYCLINE CONT ADDITIONAL INSULIN PRN CONT AMBULATION AND HAS BEEN UP IN HALLS CONT PPI FOR STRESS ULCER PROPHYLAXIS CR TABRAES MD Oct 24, 2024 13:29
[2024-10-24] MEDS ORDERED: hydrALAZine 25MG TABLET PO PRN (13:30)
--- NOTE | 2024-10-24 20:24 | PN ---
[facility] PROGRESS NOTE Date Patient Seen: Oct 24, 2024 Time of Visit: 15:21 Supervising Physician: PENNIE TABOR MD Primary Care Physician: DR. Gretta Carmona Outpatient Specialists: Inpatient Consults: BIS, pulmonology Cardiology Cardiovascular PROBLEM LIST: Acute hypoxemic respiratory failure, POA GIANCARLO with reported complications, home nasal CPAP q.h.s., POA Cardiac tamponade s/p pericardial window on 10/21/[address] 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 Cruz Sykes 20-30% LAD and 20-30% mid RCA with normal EF Former smoker Mixed hyperlipidemia Morbid obesity, BMI 49.3 Major depression Lumbar stenosis Right adrenal myelolipoma 01/2021 INTERVAL HISTORY: Patient seen and examined at the bedside, not in distress, has been using his Bipap , but states he does not feel SOB at this time he is status post pericardial window post op day #2, denies chest pain, palpitations or any other issues. 10/24 Patient is a 54 year old gentleman who is status post pericardial window, he is awake, alert, well oriented not in distress , denies chest pain or SOB, patient with chest tube in place probably will be discontinue today otherwise he has been tolerating his diet, and walking around with no issues. REVIEW OF SYSTEMS: 12 point ROS reviewed with patient. Pertinent positives mentioned above. Otherwise negative. PHYSICAL EXAM: GENERAL: alert, awake oriented x 3 HEENT: EOMI, Sclera non icteric, moist mucosa NECK: Supple, no JVD, trachea midline LUNGS: Upper lobes crackles lower lobes diminished sounds bilaterally. No wheezes HEART: Regular rate and rhythm. Normal S1 and S2, without murmurs ABD: Obese. Abdomen soft, nontender. Bowel sounds present EXT: No clubbing cyanosis or edema NEURO: Alert and oriented x3. No neuro deficits. Vital Signs (last 8hr) Date Time Temp Pulse Resp B/P (MAP) Pulse Ox O2 Delivery O2 Flow Rate FiO2 10/24/24 19:23 69 20 N/A Room Air 21 10/24/24 19:22 68 18 10/24/24 18:58 98.4 67 18 97/47 95 Room Air 10/24/24 16:00 98.6 59 20 114/60 96 CPAP 10/24/24 14:40 69 18 10/24/24 13:55 63 20 112/51 98 Room Air 0.0 10/24/24 12:30 67 22 99/48 96 Room Air 0.0 LABS: Hematology Labs: Test 10/24/24 04:31 Range/Units White Blood Count 16.7 #H 4.8-10.8 K/uL Red Blood Count 5.18 4.50-6.20 MIL/uL Hemoglobin 14.5 14.0-18.0 g/dL Hematocrit 43.3 42-54 % Mean Corpuscular Volume 83.6 79-99 fL Mean Corpuscular Hemoglobin 28.0 27.0-33.0 pg Mean Corpuscular Hemoglobin Concent 33.5 32.0-36.0 g/dL Red Cell Distribution Width 13.5 11.0-15.5 % Platelet Count 255 130-400 K/uL Mean Platelet Volume 10.0 7.5-10.5 fL Nucleated Red Blood Cells 0.0 0.0-0.19 % Chemistry Labs: Test 10/24/24 19:24 10/24/24 04:31 Range/Units Whole Blood Glucose 275 H 70-110 MG/DL Bedside Glucose Comment Notified Nurse Sodium Level 143 136-145 mmol/L Potassium Level 3.5 3.5-5.1 mmol/L Chloride Level 102 101-111 mmol/L Carbon Dioxide Level 36 H 21-32 mmol/L Blood Urea Nitrogen 34 H 7-18 mg/dL Creatinine 1.5 H 0.5-1.3 mg/dL Glomerular Filtration Rate Calc 55 >90 mL/min Random Glucose 213 H 70-105 mg/dL Total Calcium 9.0 8.5-10.1 mg/dL DIAGNOSTICS / RADIOLOGY RESULTS: [ ] PULMONARY PLAN: IS Monitor respiratory status closely. Continue oxygen therapy as needed. Continue home nasal CPAP. (Patient reports due to anxiety he does not tolerate face mask CPAP) Continue with antibiotic therapy aspiration precautions adequate pain control ATTESTATION BY PHYSICIAN Documentation assistance provided by a scribe, information recorded by the scribe was done at my direction and has been reviewed and validated by me." PENNIE TABOR MD I personally scribed for SHARONA CASPER MD (EMIR) on 10/24/24 at 20:24. Electronically submitted by Silav Adams ([id number]). SHARONA CASPER MD Oct 24, 2024 20:24
[2024-10-25] VITALS (10 sets, daily range): BP systolic 118–153; BP diastolic 59–85; PULSE 54–71; RESP 18–20; TEMP 97.6–98.8; O2SAT 95–99
[2024-10-25 03:52] LABS: HEMATOCRIT 42.5 % (42-54); MEAN CORPUSCULAR HEMOGLOBIN 27.3 pg (27.0-33.0); MEAN CORPUSCULAR HGB CONC 32.9 g/dL (32.0-36.0); RED BLOOD CELL COUNT(AUTO) 5.12 MIL/uL (4.50-6.20); RED CELL DISTRIBUTION WIDTH 13.5 % (11.0-15.5); WHITE BLOOD COUNT (AUTO) 17.8 K/uL (4.8-10.8)
[2024-10-25 04:01] LABS: CREATININE 1.9 mg/dL (0.5-1.3); POTASSIUM 3.6 mmol/L (3.5-5.1)
[2024-10-25] MEDS: PoTASSium chloRIDE 20MEQ ER 20 MEQ ERTAB PO SCH (09:19)
[2024-10-25] MEDS ORDERED: GABAPENTIN 300 MG CAPSULE PO PRN (11:30)
[2024-10-25] MEDS ORDERED: FURO40TA5 PO (11:31)
--- NOTE | 2024-10-25 11:35 | PN ---
Subjective Review of Systems PROGRESS NOTE Date of Visit: Oct 25, 2024 Time of Visit: 11:32 Subjective UP IN CHAIR AND FEELING BETTER General: No Fever, No Chills, No Night Sweats, No Fatigue, No Malaise, No Appetite, No Other HEENT: No Head Aches, No Visual Changes, No Eye Pain, No Ear Pain, No Dysphasia, No Sinus Congestion, No Post Nasal Drip, No Sore Throat, No Other Pulmonary: No Dyspnea, No Cough, No Pleuritic Chest Pain, No Other Cardiovascular: No: Chest Pain, Palpitations, Orthopnea, Paroxysmal Noc. Dyspnea, Edema, Lt Headedness, Other Gastrointestinal: No: Nausea, Vomiting, Abdominal Pain, Diarrhea, Constipation, Melena, Hematochezia, Other Genitourinary: No Dysuria, No Frequency, No Incontinence, No Hematuria, No Retention, No Other Musculoskeletal: No: other, neck pain, shoulder pain, arm pain, back pain, hand pain, leg pain, foot pain Skin: No Urticaria, No Rash, No Other Neurological: No: Weakness, Numbness, Incoordination, Change in speech, Confusion, Seizures, Other Objective Vitals and I/O Vital Sign (Last 24 Hours) 10/25/24 10/25/24 08:00 11:00 Temp 98.1 Pulse 62 Resp 20 B/P (MAP) 133/71 Pulse Ox 97 O2 Delivery Room Air O2 Flow Rate 0 FiO2 40 Intake & Output (last 24hrs) 10/24/24 10/24/24 10/25/24 15:00 23:00 07:00 Intake Total 730.0 ml 250.0 ml Output Total 80 ml 0 ml Balance 730.0 ml 170.0 ml 0 ml General: Alert, Oriented X3, Cooperative, mild distress HEENT: Atraumatic, PERRLA, EOMI, Mucous membr. moist/pink Neck: Supple, No JVD, No thyromegaly Lungs: Other (DISTANT BS WITH DECREASE AUDIBE WHEEZES) Heart: Regular rate, Regular rhythm, Other (CHEST TUBE IN PLACE) Abdomen: Normal bowel sounds, Soft, No tenderness, No masses Extremities: No clubbing, No cyanosis, No edema, Normal pulses Skin: No rashes, No breakdown, No significant lesion Neuro: Normal tone, Sensation intact, Other (DYSPNEA WITH PROLONGED SENTENCES) Psych/Mental Status: Mental status NL, Mood NL, Thoughts/Content NL Results RADIOLOGY: [] EKG: [] Laboratory Tests Test 10/24/24 15:48 10/24/24 19:24 10/25/24 03:25 10/25/24 05:09 Whole Blood Glucose 217 MG/DL (70-110) H 275 MG/DL (70-110) H 192 MG/DL (70-110) H Bedside Glucose Comment Notified Nurse Notified Nurse Notified Nurse White Blood Count 17.8 K/uL (4.8-10.8) H Red Blood Count 5.12 MIL/uL (4.50-6.20) Hemoglobin 14.0 g/dL (14.0-18.0) Hematocrit 42.5 % (42-54) Mean Corpuscular Volume 83.0 fL (79-99) Mean Corpuscular Hemoglobin 27.3 pg (27.0-33.0) Mean Corpuscular Hemoglobin Concent 32.9 g/dL (32.0-36.0) Red Cell Distribution Width 13.5 % (11.0-15.5) Platelet Count 304 K/uL (130-400) Mean Platelet Volume 10.2 fL (7.5-10.5) Nucleated Red Blood Cells 0.0 % (0.0-0.19) Sodium Level 141 mmol/L (136-145) Potassium Level 3.6 mmol/L (3.5-5.1) Chloride Level 101 mmol/L (101-111) Carbon Dioxide Level 36 mmol/L (21-32) H Blood Urea Nitrogen 47 mg/dL (7-18) H Creatinine 1.9 mg/dL (0.5-1.3) H Glomerular Filtration Rate Calc 41 mL/min (>90) Random Glucose 181 mg/dL (70-105) H Total Calcium 9.0 mg/dL (8.5-10.1) Test 10/25/24 10:56 Whole Blood Glucose 295 MG/DL (70-110) #H Bedside Glucose Comment Notified Nurse Medications Current Medications Albuterol 1 UDVIAL ONCE ONCE IH Last administered on 10/18/24at 10:12; Start 10/18/24 at 09:30; Stop 10/18/24 at 09:31; Status DC Methylprednisolone Sodium Succinate 125 mg ONCE ONCE IVP Last administered on 10/18/24at 09:45; Start 10/18/24 at 09:30; Stop 10/18/24 at 09:31; Status DC Potassium Bicarbonate 50 meq ONCE ONCE PO Last administered on 10/18/24at 10:18; Start 10/18/24 at 10:30; Stop 10/18/24 at 10:31; Status DC Furosemide 40 mg ONCE ONCE IV Last administered on 10/18/24at 10:24; Start 10/18/24 at 10:30; Stop 10/18/24 at 10:31; Status DC Iohexol 35,000 mg STK-MED ONCE IV; Start 10/18/24 at 10:42; Stop 10/18/24 at 10:42; Status DC Acetaminophen 650 mg Q6H PRN PO; Start 10/18/24 at 12:30; Stop 11/17/24 at 12:29 Acetaminophen 650 mg Q4H PRN PO Last administered on 10/21/24at 16:26; Start 10/18/24 at 12:30; Stop 10/22/24 at 13:25; Status DC Ondansetron HCl 4 mg Q6H PRN IV; Start 10/18/24 at 12:30; Stop 11/17/24 at 12:29 Al Hydroxide/Mg Hydroxide 30 ml Q6H PRN PO; Start 10/18/24 at 12:30; Stop 11/17/24 at 12:29 Lactulose 20 gm BID PRN PO; Start 10/18/24 at 12:30; Stop 11/17/24 at 12:29 Guaifenesin/ Dextromethorphan 10 ml Q4H PRN PO; Start 10/18/24 at 12:30; Stop 11/17/24 at 12:29 Albuterol Sulfate 2.5 mg [id number] PRN IH; Start 10/18/24 at 12:30; Stop 11/17/24 at 12:29 Furosemide 40 mg BID IVP Last administered on 10/18/24at 17:51; Start 10/18/24 at 21:00; Stop 10/18/24 at 18:05; Status DC Enoxaparin Sodium 40 mg DAILY SQ; Start 10/19/24 at 09:00; Stop 10/18/24 at 17:44; Status DC Potassium Chloride 20 meq BID PO; Start 10/18/24 at 21:00; Stop 10/18/24 at 18:05; Status DC Dextrose 50 ml AD PRN IV; Start 10/18/24 at 12:30; Stop 11/17/24 at 12:29 Glucagon 1 mg AD PRN IM; Start 10/18/24 at 12:30; Stop 10/19/24 at 12:49; Status DC Potassium Chloride 100 ml @ 100 mls/hr AD PRN IV Last administered on 10/19/24at 06:25; Start 10/18/24 at 12:30; Stop 11/17/24 at 12:29 Potassium Chloride 20 meq AD PRN PO; Start 10/18/24 at 12:30; Stop 11/17/24 at 12:29 Potassium Chloride 20 meq AD PRN PO Last administered on 10/22/24at 06:51; Start 10/18/24 at 12:30; Stop 11/17/24 at 12:29 Magnesium Sulfate 50 ml @ 0 mls/hr PROTOCOL PRN IV; Start 10/18/24 at 12:30; Stop 11/17/24 at 12:29 Albuterol 1 UDVIAL [id number] IH Last administered on 10/19/24at 12:37; Start 10/18/24 at 18:00; Stop 10/19/24 at 12:49; Status DC Buspirone HCl 5 mg BID PRN PO Last administered on 10/23/24at 08:19; Start 10/18/24 at 13:00; Stop 11/17/24 at 12:59 Carvedilol 25 mg BID PO Last administered on 10/25/24at 09:19; Start 10/18/24 at 21:00; Stop 11/17/24 at 20:59 Amlodipine Besylate 10 mg DAILY PO; Start 10/19/24 at 09:00; Stop 10/18/24 at 17:44; Status DC Home Med (Escitalopram Oxalate 10 MG) DAILY PO; Start 10/19/24 at 09:00; Stop 10/18/24 at 17:45; Status DC Hydralazine HCl 100 mg TID PO Last administered on 10/24/24at 10:03; Start 10/18/24 at 14:00; Stop 10/24/24 at 13:25; Status DC Home Med (Minoxidil 10 MG) BID PO Last administered on 10/24/24at 10:07; Start 10/18/24 at 21:00; Stop 10/24/24 at 13:18; Status DC Atorvastatin Calcium 10 mg HS PO Last administered on 10/24/24at 19:50; Start 10/18/24 at 21:00; Stop 11/17/24 at 20:59 Sacubitril/ Valsartan 1 each BID PO; Start 10/18/24 at 21:00; Stop 10/18/24 at 18:13; Status DC Enoxaparin Sodium 40 mg DAILY SQ Last administered on 10/20/24at 09:19; Start 10/18/24 at 17:44; Stop 10/21/24 at 08:41; Status DC Amlodipine Besylate 10 mg DAILY PO Last administered on 10/25/24at 09:18; Start 10/18/24 at 17:44; Stop 11/17/24 at 17:43 Home Med (Escitalopram Oxalate 10 MG) DAILY PO Last administered on 10/25/24at 09:20; Start 10/18/24 at 17:44; Stop 11/17/24 at 17:43 Carvedilol 25 mg STK-MED ONCE PO Last administered on 10/18/24at 17:53; Start 10/18/24 at 17:47; Stop 10/18/24 at 17:48; Status DC Furosemide 40 mg STK-MED ONCE .ROUTE Last administered on 10/18/24at 17:52; Start 10/18/24 at 17:48; Stop 10/18/24 at 17:48; Status DC Methylprednisolone Sodium Succinate 125 mg STK-MED ONCE .ROUTE Last administered on 10/18/24at 17:52; Start 10/18/24 at 17:48; Stop 10/18/24 at 17:48; Status DC Sacubitril/ Valsartan 1 each STK-MED ONCE PO Last administered on 10/18/24at 17:53; Start 10/18/24 at 17:48; Stop 10/18/24 at 17:48; Status DC Hydralazine HCl 20 mg Q4H PRN IV Last administered on 10/20/24at 23:50; Start 10/18/24 at 18:00; Stop 10/24/24 at 00:00; Status DC Nitroglycerin 0.4 mg DAILY TD Last administered on 10/20/24at 16:27; Start 10/18/24 at 18:00; Stop 10/21/24 at 22:29; Status DC Furosemide 40 mg Q8H5 IVP Last administered on 10/21/24at 20:53; Start 10/18/24 at 21:00; Stop 10/21/24 at 22:29; Status DC Potassium Chloride 20 meq TID PO Last administered on 10/22/24at 14:04; Start 10/18/24 at 21:00; Stop 10/22/24 at 20:01; Status DC Methylprednisolone Sodium Succinate 125 mg Q6H IVP Last administered on 10/19/24at 09:31; Start 10/18/24 at 21:00; Stop 10/19/24 at 12:48; Status DC Sacubitril/ Valsartan 1 each BID PO Last administered on 10/25/24at 09:18; Start 10/18/24 at 21:00; Stop 11/17/24 at 20:59 Dextrose 50 ml AD PRN IV; Start 10/18/24 at 18:30; Stop 10/19/24 at 12:49; Status DC Glucagon 1 mg AD PRN IM; Start 10/18/24 at 18:30; Stop 11/17/24 at 18:29 Insulin Human Regular INSULIN SLIDING SCAL... ACHS SQ Last administered on 10/25/24at 06:06; Start 10/18/24 at 21:00; Stop 11/17/24 at 20:59 Methylprednisolone Sodium Succinate 125 mg Q12H9 IVP Last administered on 10/20/24at 09:17; Start 10/19/24 at 21:00; Stop 10/20/24 at 15:26; Status DC Albuterol 1 UDVIAL TIDAC IH Last administered on 10/20/24at 18:59; Start 10/19/24 at 17:00; Stop 10/21/24 at 14:44; Status DC Pantoprazole Sodium 40 mg DAILY PO Last administered on 10/25/24at 09:18; Start 10/21/24 at 09:00; Stop 11/20/24 at 08:59 Potassium Chloride 100 ml @ 50 mls/hr AD PRN IV; Start 10/21/24 at 07:00; Stop 10/21/24 at 06:53; Status DC Sodium Chloride 1,000 ml @ As Directed STK-MED ONCE IV Last administered on 10/21/24at 07:37; Start 10/21/24 at 07:13; Stop 10/21/24 at 07:13; Status DC Dexamethasone Sodium Phosphate 10 mg STK-MED ONCE .ROUTE; Start 10/21/24 at 07:57; Stop 10/21/24 at 07:57; Status DC Lidocaine HCl 100 mg STK-MED ONCE .ROUTE; Start 10/21/24 at 07:57; Stop 10/21/24 at 07:58; Status DC Ondansetron HCl 4 mg STK-MED ONCE .ROUTE; Start 10/21/24 at 07:57; Stop 10/21/24 at 07:58; Status DC Propofol 200 mg STK-MED ONCE IV; Start 10/21/24 at 07:58; Stop 10/21/24 at 07:58; Status DC Succinylcholine Chloride 200 mg STK-MED ONCE .ROUTE; Start 10/21/24 at 07:58; Stop 10/21/24 at 07:58; Status DC Rocuronium Spencer 50 mg STK-MED ONCE .ROUTE; Start 10/21/24 at 07:58; Stop 10/21/24 at 07:59; Status DC Midazolam HCl 2 mg STK-MED ONCE .ROUTE; Start 10/21/24 at 07:59; Stop 10/21/24 at 07:59; Status DC Fentanyl Citrate 100 mcg STK-MED ONCE .ROUTE; Start 10/21/24 at 08:10; Stop at 08:10; Status DC Midazolam HCl 2 mg STK-MED ONCE .ROUTE; Start 10/21/24 at 08:34; Stop 10/21/24 at 08:34; Status DC Acetaminophen 650 mg Q6H PRN PO; Start 10/21/24 at 09:00; Stop 10/21/24 at 08:44; Status DC Tramadol HCl 50 mg Q6H PRN PO; Start 10/21/24 at 09:00; Stop 10/21/24 at 13:17; Status DC Tramadol HCl 100 mg Q6H PRN PO Last administered on 10/21/24at 09:59; Start 10/21/24 at 09:00; Stop 10/21/24 at 13:17; Status DC Cefazolin Sodium 2 gm Q8H IVPB Last administered on 10/22/24at 08:03; Start 10/21/24 at 17:00; Stop 10/22/24 at 09:01; Status DC Glycopyrrolate 1 mg STK-MED ONCE .ROUTE; Start 10/21/24 at 09:04; Stop 10/21/24 at 09:04; Status DC Neostigmine Methylsulfate 10 mg STK-MED ONCE IV; Start 10/21/24 at 09:04; Stop 10/21/24 at 09:04; Status DC Neostigmine Methylsulfate 10 mg STK-MED ONCE IV; Start 10/21/24 at 09:05; Stop 10/21/24 at 09:05; Status DC Fentanyl Citrate 100 mcg STK-MED ONCE .ROUTE; Start 10/21/24 at 09:12; Stop 10/21/24 at 09:12; Status DC Fentanyl Citrate 100 mcg STK-MED ONCE .ROUTE; Start 10/21/24 at 09:16; Stop 10/21/24 at 09:16; Status DC Cefazolin Sodium 2 gm STK-MED ONCE IVPB Last administered on 10/21/24at 08:30; Start 10/21/24 at 08:30; Stop 10/21/24 at 10:17; Status DC Acetaminophen/ Hydrocodone Bitart 1.5 tab Q4H PRN PO Last administered on 10/21/24at 10:54; Start 10/21/24 at 11:00; Stop 10/21/24 at 13:17; Status DC Morphine Sulfate 2 mg Q3H3 PRN IVP Last administered on 10/22/24at 02:55; Start 10/21/24 at 13:30; Stop 10/22/24 at 13:33; Status DC Morphine Sulfate 4 mg Q3H3 PRN IVP Last administered on 10/22/24at 07:59; Start 10/21/24 at 13:30; Stop 10/22/24 at 09:50; Status DC Albuterol 1 UDVIAL TID IH Last administered on 10/25/24at 07:23; Start 10/21/24 at 21:00; Stop 11/17/24 at 17:59 Albuterol 1 udvial STK-MED ONCE IH Last administered on 10/21/24at 19:35; Start 10/21/24 at 18:26; Stop 10/21/24 at 18:27; Status DC Furosemide 80 mg BID@ PO Last administered on 10/23/24at 16:28; Start 10/22/24 at 09:00; Stop 10/24/24 at 00:19; Status DC Ketorolac Tromethamine 30 mg Q6H PRN IVP Last administered on 10/22/24at 10:33; Start 10/22/24 at 10:00; Stop 10/24/24 at 00:00; Status DC Gabapentin 300 mg ONCE ONCE PO Last administered on 10/22/24at 14:06; Start 10/22/24 at 13:30; Stop 10/22/24 at 13:31; Status DC Gabapentin 300 mg BID PO Last administered on 10/24/24at 19:50; Start 10/22/24 at 21:00; Stop 10/25/24 at 11:29; Status DC Docusate Sodium 100 mg TID PO Last administered on 10/25/24at 09:18; Start 10/22/24 at 14:00; Stop 11/21/24 at 13:59 Acetaminophen 500 mg TID PO Last administered on 10/25/24at 09:20; Start 10/22/24 at 14:00; Stop 11/21/24 at 13:59 Acetaminophen/ Hydrocodone Bitart 1 tab Q6H PRN PO Last administered on 10/22/24at 18:25; Start 10/22/24 at 13:30; Stop 10/25/24 at 11:29; Status DC Sennosides 2 tab HS PO Last administered on 10/24/24at 19:50; Start 10/22/24 at 21:00; Stop 11/21/24 at 20:59 Magnesium Oxide 400 mg HS PO Last administered on 10/24/24at 19:50; Start 10/22/24 at 21:00; Stop 11/21/24 at 20:59 Metolazone 5 mg ONCE ONCE PO Last administered on 10/22/24at 18:07; Start 10/22/24 at 17:30; Stop 10/22/24 at 17:31; Status DC Potassium Chloride 20 meq QID PO Last administered on 10/24/24at 10:04; Start 10/22/24 at 20:00; Stop 10/24/24 at 13:18; Status DC Methylprednisolone Sodium Succinate 125 mg ONCE ONCE IVP Last administered on 10/22/24at 23:05; Start 10/22/24 at 22:30; Stop 10/22/24 at 22:31; Status DC Methylprednisolone Sodium Succinate 60 mg Q8H IVP Last administered on 10/23/24at 06:44; Start 10/22/24 at 06:30; Stop 10/23/24 at 07:58; Status DC Methylprednisolone Sodium Succinate 60 mg Q8H IVP Last administered on 10/25/24at 06:07; Start 10/23/24 at 14:30; Stop 10/25/24 at 11:29; Status DC Doxycycline Hyclate 250 ml @ 125 mls/hr Q12H IV Last administered on 10/25/24at 09:17; Start 10/23/24 at 08:30; Stop 10/25/24 at 11:29; Status DC Acetaminophen/ Hydrocodone Bitart 1 tab Q6H PRN PO; Start 10/24/24 at 00:00; Stop 10/29/24 at 00:00 Furosemide 40 mg BID@09,17 PO Last administered on 10/24/24at 10:05; Start 10/24/24 at 09:00; Stop 10/24/24 at 13:18; Status DC Clonidine HCl 0.1 mg Q6H PRN PO; Start 10/24/24 at 00:30; Stop 11/23/24 at 00:29 Potassium Chloride 20 meq DAILY PO Last administered on 10/25/24at 09:19; Start 10/25/24 at 09:00; Stop 11/17/24 at 20:59 Hydralazine HCl 50 mg Q4H4 PRN PO; Start 10/24/24 at 13:30; Stop 11/17/24 at 13:59 Gabapentin 300 mg BID PRN PO; Start 10/25/24 at 11:30; Stop 11/21/24 at 20:59 Doxycycline Hyclate 100 mg BID PO; Start 10/25/24 at 21:00; Stop 11/04/24 at 20:59; Status UNV Prednisone 40 mg DAILY PO; Start 10/26/24 at 09:00; Stop 11/25/24 at 08:59; Status UNV Assessment/Plan RADIOLOGY CHEST 1VW 10/18/2024 FINDINGS: There is stable cardial megaly. There is mild vascular congestion. Lungs are otherwise clear. Mediastinum and bony thorax appear unremarkable. IMPRESSION: Cardiomegaly with vascular congestion consistent with CHF. CT CHEST PE PROTOCOL WWO CONT 10/19/2024 FINDINGS: Lungs are clear. There are no focal masses or infiltrates. There is cardiomegaly accentuated by a moderate pericardial effusion, the effusion measures 2 cm along the left heart margin. There is no hilar or mediastinal lymphadenopathy. Chest wall structures appear normal as do visualized upper abdominal structures. Contrast outlines normal appearing central pulmonary arteries. There is no CT evidence of PE. The a sending aorta appears normal without aneurysm or dissection. IMPRESSION: 1. There is cardiomegaly, there is also moderate pericardial effusion. 2. No CT evidence of PE. 2DECHO 10/19/2024 Left Ventricle cavity size is normal. Severe concentric left ventricular hypertrophy. LVEF is >65%. The LV diastolic function was unable to be assessed Right Ventricle is severely dilated. The right ventricular systolic function is normal. Atria The left atrium is severely dilated. The right atrium is moderately to severely dilated. Aortic Valve is normal in structure and function. No aortic regurgitation is present. There is no aortic valvular stenosis. Mitral Valve leaflets open well. There is mild mitral valve regurgitation noted. There is no mitral valve stenosis. Tricuspid Valve is normal in structure and function. There is trace of tricuspid valve regurgitation noted. Pulmonic Valve is normal in structure and function. There is no pulmonic valvular regurgitation. Great Vessels The aortic root is normal in size. IVC is dilated and collapses > 50% with inspiration. Pericardium Large pericardial effusion. No RV diastolic collapse. Quality : Technically difficult due to body habitus Conclusion Left ventricular cavity size is normal. Severe concentric left ventricular hypertrophy. LVEF is >65%. The LV diastolic function was unable to be assessed The right ventricle is severely dilated. The right ventricular systolic function is normal. The left atrium is severely dilated. The right atrium is moderately to severely dilated. There is mild mitral valve regurgitation noted. IVC is dilated and collapses >50% with inspiration. Large pericardial effusion. No RV diastolic collapse. CHEST 1VW 10/21/2024 FINDINGS: A frontal projection of the chest was obtained. There are bilateral pulmonary infiltrates suggestive of pulmonary vascular congestion with possible superimposed pneumonitis. The heart is borderline enlarged. Degenerative changes are seen. No evidence of aortic calcification is seen. IMPRESSION: Bilateral pulmonary infiltrates are seen suggestive of pulmonary vascular congestion with possible superimposed pneumonitis. CHEST 1VW 10/22/2024 FINDINGS: A frontal projection of the chest was obtained. Mild bilateral pulmonary infiltrates are seen may be related to mild pulmonary vascular congestion with possible superimposed pneumonitis. The heart is enlarged. Mild degenerative changes are seen. No evidence of aortic calcification is seen. IMPRESSION: Mild bilateral pulmonary infiltrates are seen may be related to mild pulmonary vascular congestion with possible superimposed pneumonitis. Procedure : PERICARDIAL WINDOW DATE : 10/21/2024 PRE AND POST OP DIAGNOSIS : PERICARDIAL EFFUSION SURGEON : DR AQUINO FINDINGS: The patient had 700 mL of clear pericardial fluid. The pericardium did not appear inflamed. The fluid was under pressure. CHEST 1VW 10/24/2024 FINDINGS: A frontal projection of the chest was obtained. Mild bilateral pulmonary infiltrates are seen may be related to mild pulmonary vascular congestion with possible superimposed pneumonitis. The heart is borderline enlarged. Degenerative changes are seen. No evidence of aortic calcification is seen. IMPRESSION: Mild bilateral pulmonary infiltrates are seen may be related to mild pulmonary vascular congestion with possible superimposed pneumonitis. 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) PRESENTED WITH ACUTE ON CHRONIC DIASTOLIC CHF EXACERBATION ACUTE HYPOXIC RESPIRATORY FAILURE LARGE PERICARDIAL EFFUSION BY ECHO WITH EF 65% COPD EX HYPERTENSIVE URGENCY HYPOKALEMIA S/P PERICARDIA WINDOW 10/21/2024 700 CC FLUID DRAINED PLAN: CHEST TUBE STILL IN PLACE AND TO BE PULLED OUT SOON PROBLEMS WITH HYPOTENSION WITH D/C OF HYDRALAZINE, MINOXIDIL AND LASIX CONT TO HOLD ORAL DIURETICS AND INC ORAL INTAKE CONT COREG AND ENTRESTO CONT TYLENOL AND PAIN CONTROLLED D/C GABAPENTIN FOR PAIN AND WEANING HYDROCODONE CONSTIPATION RESOLVED CONT CPAP QHS AND PRN CHANVE IV STEROIDS AND IV DOXYCYCLINE TPO PO ROUTE DUE TO POOR PERIPHERAL ACCESS AND ABLE TO TAKE PO CONT ADDITIONAL INSULIN PRN CONT AMBULATION AND HAS BEEN UP IN HALLS CONT PPI FOR STRESS ULCER PROPHYLAXIS D/C PLANNING IN PROGRESS CR TABARES MD Oct 25, 2024 11:35
--- NOTE | 2024-10-25 13:55 | NUR ---
MEDIASTINAL CHEST TUBE REMOVED. PATIENT TOLERATED WELL.
--- NOTE | 2024-10-25 15:55 | NUR ---
PAGED DR. Mervin TABARES [phone], FOR DISMISSAL ORDERS.
--- NOTE | 2024-10-25 16:45 | DS ---
DISCHARGE SUMMARY Date of Visit: Oct 25, 2024 Time of Visit: 16:45 ADMISSION DATE: Oct 18, 2024 at 12:26 DISCHARGE DATE: Oct 25, 2024 ATTENDED PHYSICIAN: Gretta Carmona MD DISCHARGE DIAGNOSIS: ACUTE ON CHRONIC DIASTOLIC CHF EXACERBATION ACUTE HYPOXIC RESPIRATORY FAILURE LARGE PERICARDIAL EFFUSION BY ECHO WITH EF 65% PERICARDIAL TAMPONADE S/P PERICARDIA WINDOW 10/21/2024 700 CC FLUID DRAINED - DR AQUINO COPD EXACERBATION HYPERTENSIVE URGENCY HYPOKALEMIA DM II WITH MULTIPLE COMPLICATIONS HYPERTENSIVE HEART AND RENAL DISEASE WITH CHRONIC DIASTOLIC CHF S/P HEART CATH 03/2023 - DR VALENTÍN RUSSELL - 20-30$ LAD AND 20-30% MID RCA WITH NORMAL EF GIANCARLO WITH REPORTED COMPLIANCE COPD / FORMER SMOKER MIXED HYPERLIPIDEMIA MORBID OBESITY / BMI 48 ERWIN / MAJOR DEPRESSION, SINGLE EPISODE, MILD LUMBAR STENOSIS / OTHER SPEC SPONDYLOPATHIES, LUMBAR R ADRENAL MYELOLIPOMA 2X1 CM (01/24) LIBRARY AIDE(S): [facility] - DR AQUINO, CARDIOLOGY - DR RUSSELL, PULMONOLOGY - [facility] RADIOLOGY: CHEST 1VW 10/18/2024 FINDINGS: There is stable cardial megaly. There is mild vascular congestion. Lungs are otherwise clear. Mediastinum and bony thorax appear unremarkable. IMPRESSION: Cardiomegaly with vascular congestion consistent with CHF. CT CHEST PE PROTOCOL WWO CONT 10/19/2024 FINDINGS: Lungs are clear. There are no focal masses or infiltrates. There is cardiomegaly accentuated by a moderate pericardial effusion, the effusion measures 2 cm along the left heart margin. There is no hilar or mediastinal lymphadenopathy. Chest wall structures appear normal as do visualized upper abdominal structures. Contrast outlines normal appearing central pulmonary arteries. There is no CT evidence of PE. The a sending aorta appears normal without aneurysm or dissection. IMPRESSION: 1. There is cardiomegaly, there is also moderate pericardial effusion. 2. No CT evidence of PE. 2DECHO 10/19/2024 Left Ventricle cavity size is normal. Severe concentric left ventricular hypertrophy. LVEF is >65%. The LV diastolic function was unable to be assessed Right Ventricle is severely dilated. The right ventricular systolic function is normal. Atria The left atrium is severely dilated. The right atrium is moderately to severely dilated. Aortic Valve is normal in structure and function. No aortic regurgitation is present. There is no aortic valvular stenosis. Mitral Valve leaflets open well. There is mild mitral valve regurgitation noted. There is no mitral valve stenosis. Tricuspid Valve is normal in structure and function. There is trace of tricuspid valve regurgitation noted. Pulmonic Valve is normal in structure and function. There is no pulmonic valvular regurgitation. Great Vessels The aortic root is normal in size. IVC is dilated and collapses >50% with inspiration. Pericardium Large pericardial effusion. No RV diastolic collapse. Quality : Technically difficult due to body habitus Conclusion Left ventricular cavity size is normal. Severe concentric left ventricular hypertrophy. LVEF is >65%. The LV diastolic function was unable to be assessed The right ventricle is severely dilated. The right ventricular systolic function is normal. The left atrium is severely dilated. The right atrium is moderately to severely dilated. There is mild mitral valve regurgitation noted. IVC is dilated and collapses >50% with inspiration. Large pericardial effusion. No RV diastolic collapse. CHEST 1VW 10/21/2024 FINDINGS: A frontal projection of the chest was obtained. There are bilateral pulmonary infiltrates suggestive of pulmonary vascular congestion with possible superimposed pneumonitis. The heart is borderline enlarged. Degenerative changes are seen. No evidence of aortic calcification is seen. IMPRESSION: Bilateral pulmonary infiltrates are seen suggestive of pulmonary vascular congestion with possible superimposed pneumonitis. CHEST 1VW 10/22/2024 FINDINGS: A frontal projection of the chest was obtained. Mild bilateral pulmonary infiltrates are seen may be related to mild pulmonary vascular congestion with possible superimposed pneumonitis. The heart is enlarged. Mild degenerative changes are seen. No evidence of aortic calcification is seen. IMPRESSION: Mild bilateral pulmonary infiltrates are seen may be related to mild pulmonary vascular congestion with possible superimposed pneumonitis. CHEST 1VW 10/24/2024 FINDINGS: A frontal projection of the chest was obtained. Mild bilateral pulmonary infiltrates are seen may be related to mild pulmonary vascular congestion with possible superimposed pneumonitis. The heart is borderline enlarged. Degenerative changes are seen. No evidence of aortic calcification is seen. IMPRESSION: Mild bilateral pulmonary infiltrates are seen may be related to mild pulmonary vascular congestion with possible superimposed pneumonitis. PROCEDURE : PERICARDIAL WINDOW DATE : 10/21/2024 PRE AND POST OP DIAGNOSIS : PERICARDIAL EFFUSION SURGEON : DR AQUINO FINDINGS: The patient had 700 mL of clear pericardial fluid. The pericardium did not appear inflamed. The fluid was under pressure. HOSPITAL COURSE: THIS IS A 54 YR OLD MAN WITH THE PAST MEDICAL HISTORY WHO PRESENTED WITH PROGRESSIVE SOB AND BARAHONA AND FOUND TO HAVE ACUTE ON CHRONIC DIASTOLIC CHF EXACERBATION, ACUTE HYPOXIC RESPIRATORY FAILURE, DUE TO PRIMARILY A LARGE PERICARDIAL EFFUSION FOUND BY ECHO WITH EF 65%. HE WAS EVALUATED BY [facility] DR AQUINO FOR PERICARDIAL TAMPONADE AND UNDERWENT A PERICARDIAL WINDOW ON 10/21/2024 AND HAD 700 CC FLUID DRAINED. HE WAS ALSO TREATED FOR A COPD EXACERBATION, HYPERTENSIVE URGENCY AND HYPOKALEMIA. ONCE HIS CHEST TUBE WAS REMOVED POST OP AND STABLE FROM A CARDIOVASCULAR STANDPOINT HE WAS DISCHARGED HOME IN STABLE CONDITION WITH ADJUSTMENTS MADE IN HIS MEDICATIONS. DIET: ADA HEART HEALTHY ACTIVITY: AMBULATION TOLERATED CONDITION: STABLE EQUIPMENT: NONE FOLLOW UP APPOINTMENT(S): DR CARMONA IN 2-5 DAYS, DR AQUINO IN 1-2 WEEKS DISPOSITION: HOME CODE STATUS: FULL OTHER - -NEEDS FU BMP ON RETURN TO ADJUST MEDS MEDICATION RECONCILIATION : Home Medications were reconciled with hospital medications upon discharge and discussed with patient and/or responsible democrat. D/C HYDRALAZINE AND MINOXIDIL AND METFORMIN DECREASE FUROSEMIDE TO 40 MG PO Q AM INCREASE ENTRESTO TO 90/103 MG 1 PO BID HOLD OZEMPIC UNTIL FURTHER NOTICE Home Meds Active Scripts Furosemide (Furosemide) 40 Mg Tablet, 1 TAB PO DAILY for 30 Days, #30 TAB 0 Refills Prov:GRETTA CARMONA MD 10/25/24 Sacubitril/Valsartan (Entresto 97 mg-103 mg Tablet) 97 Mg-103 Mg Tablet, 1 TAB PO BID for 30 Days, #60 TAB 3 Refills Prov:GRETTA CARMONA MD 10/22/24 Albuterol Sulfate (Ventolin Hfa) 90 Mcg Hfa.aer.ad, 2 PUFF IH Q4PRN PRN for SHORTNESS OF BREATH/WHEEZING for 90 Days, #7 INHALER Prov:GRETTA CARMONA MD 10/18/24 Amlodipine Besylate (Amlodipine Besylate) 10 Mg Tablet, 10 MG PO DAILY for 30 Days, #30 TAB 0 Refills Prov:GRETTA CARMONA MD 10/18/24 Buspirone HCl (Buspirone HCl) 5 Mg Tablet, 5 MG PO BID PRN for ANXIETY, #90 TAB Prov:GRETTA CARMONA MD 10/18/24 Carvedilol (Carvedilol) 25 Mg Tablet, 25 MG PO BID for 90 Days, #180 TAB Prov:GRETTA CARMONA MD 10/18/24 Cetirizine HCl (Cetirizine HCl) 10 Mg Tablet, 10 MG PO HS, #90 TAB Prov:GRETTA CARMONA MD 10/18/24 Escitalopram Oxalate (Escitalopram Oxalate) 10 Mg Tablet, 10 MG PO DAILY for 90 Days, #90 TAB Prov:GRETTA CARMONA MD 10/18/24 Fluticasone Propionate (Flonase Allergy Relief) 50 Mcg/Actuation [place].susp, 2 SPRAY NS DAILY PRN for allergies, #9 ML Prov:GRETTA CARMONA MD 10/18/24 Rosuvastatin Calcium (Rosuvastatin Calcium) 5 Mg Tablet, 5 MG PO HS for 90 Days, #90 TAB Prov:GRETTA CARMONA MD 10/18/24 Fluticasone/Umeclidin/Vilanter (Trelegy Ellipta 100-62.5-25) 100-62.5 Blst.w.dev, 1 PUFF IH DAILY for 90 Days, #90 EA Prov:GRETTA CARMONA MD 10/18/24 Discontinued Scripts Furosemide (Furosemide) 40 Mg Tablet, 40 MG PO BID for 90 Days, #180 TAB Prov:GRETTA CARMONA MD 10/18/24 Hydralazine HCl (Hydralazine HCl) 100 Mg Tablet, 100 MG PO TID for 90 Days, #270 TAB Prov:GRETTA CARMONA MD 10/18/24 Minoxidil (Minoxidil) 10 Mg Tablet, 10 MG PO BID for 90 Days, #180 TAB Prov:GRETTA CARMONA MD 10/18/24 Sacubitril/Valsartan (Entresto 49 mg-51 mg Tablet) 49 Mg-51 Mg Tablet, 1 TAB PO BID for 90 Days, #180 TAB Prov:GRETTA CARMONA MD 10/18/24 Metformin HCl (Metformin HCl) 500 Mg Tablet, 500 MG PO BID for 90 Days, #180 TAB Prov:GRETTA CARMONA MD 10/18/24 Semaglutide (Ozempic) 2 Mg/0.75 Ml (8 Mg/3 Ml) Pen.injctr, 2 MG SQ QWEEK for 90 Days, #3 ML Prov:GRETTA CARMONA MD 10/18/24 GRETTA CARMONA MD Oct 25, 2024 16:45
--- NOTE | 2024-10-25 17:16 | PN ---
[facility] PROGRESS NOTE Date Patient Seen: Oct 25, 2024 Time of Visit: 13:11 Supervising Physician: ANGELINA CUMMINGS Primary Care Physician: DR. Gretta Carmona Outpatient Specialists: Inpatient Consults: [facility], pulmonology Cardiology Cardiovascular PROBLEM LIST: Acute hypoxemic respiratory failure, POA GIANCARLO with reported complications, home nasal CPAP q.h.s., POA Cardiac tamponade s/p pericardial window on 10/21/[address] 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 Cruz Sykes 20-30% LAD and 20-30% mid RCA with normal EF Former smoker Mixed hyperlipidemia Morbid obesity, BMI 49.3 Major depression Lumbar stenosis Right adrenal myelolipoma 01/2021 INTERVAL HISTORY: Patient seen and examined at the bedside, not in distress, has been using his Bipap , but states he does not feel SOB at this time he is status post pericardial window post op day #2, denies chest pain, palpitations or any other issues. 10/24 Patient is a 54 year old gentleman who is status post pericardial window, he is awake, alert, well oriented not in distress , denies chest pain or SOB, patient with chest tube in place probably will be discontinue today otherwise he has been tolerating his diet, and walking around with no issues. 10/25 Patient is awake, alert, well oriented, x3, resting comfortable on bed, not requiring oxygen chest tube has been removed, he states feeling much better, no new issues, wound remains clean he is back to his home medicines, plan is to be discharge home. REVIEW OF SYSTEMS: 12 point ROS reviewed with patient. Pertinent positives mentioned above. Otherwise negative. PHYSICAL EXAM: GENERAL: alert, awake oriented x 3 HEENT: EOMI, Sclera non icteric, moist mucosa NECK: Supple, no JVD, trachea midline LUNGS: diminished sounds bilaterally. No wheezes HEART: Regular rate and rhythm. Normal S1 and S2, without murmurs ABD: Obese. Abdomen soft, nontender. Bowel sounds present EXT: No clubbing cyanosis or edema NEURO: Alert and oriented x3. No neuro deficits. Vital Signs (last 8hr) Date Time Temp Pulse Resp B/P (MAP) Pulse Ox O2 Delivery O2 Flow Rate FiO2 10/25/24 16:00 97.5 59 20 129/60 99 Room Air 10/25/24 14:15 62 20 10/25/24 14:14 62 20 N/A Room Air 21 10/25/24 11:00 98.1 62 20 133/71 97 Room Air 10/25/24 09:19 153/83 LABS: Hematology Labs: Test 10/25/24 03:25 Range/Units White Blood Count 17.8 H 4.8-10.8 K/uL Red Blood Count 5.12 4.50-6.20 MIL/uL Hemoglobin 14.0 14.0-18.0 g/dL Hematocrit 42.5 42-54 % Mean Corpuscular Volume 83.0 79-99 fL Mean Corpuscular Hemoglobin 27.3 27.0-33.0 pg Mean Corpuscular Hemoglobin Concent 32.9 32.0-36.0 g/dL Red Cell Distribution Width 13.5 11.0-15.5 % Platelet Count 304 130-400 K/uL Mean Platelet Volume 10.2 7.5-10.5 fL Nucleated Red Blood Cells 0.0 0.0-0.19 % Chemistry Labs: Test 10/25/24 15:57 10/25/24 03:25 Range/Units Whole Blood Glucose 306 H 70-110 MG/DL Bedside Glucose Comment Notified Nurse Sodium Level 141 136-145 mmol/L Potassium Level 3.6 3.5-5.1 mmol/L Chloride Level 101 101-111 mmol/L Carbon Dioxide Level 36 H 21-32 mmol/L Blood Urea Nitrogen 47 H 7-18 mg/dL Creatinine 1.9 H 0.5-1.3 mg/dL Glomerular Filtration Rate Calc 41 >90 mL/min Random Glucose 181 H 70-105 mg/dL Total Calcium 9.0 8.5-10.1 mg/dL DIAGNOSTICS / RADIOLOGY RESULTS: [ ] PULMONARY PLAN: from our stand point of view patient is stable to be discharge home patient will need to follow up as an outpatient at the pulmonary clinic Monitor respiratory status closely. Continue oxygen therapy as needed. adequate pain control ATTESTATION BY PHYSICIAN Documentation assistance provided by a scribe, information recorded by the scribe was done at my direction and has been reviewed and validated by me." EMILIANO ALFARO MD I personally scribed for EMILIANO ALFARO MD ([email or web address]) on 10/25/24 at 17:16. Electronically submitted by Silva Adams ([email or web address]). EMILIANO ALFARO MD Oct 25, 2024 17:16
--- NOTE | 2024-10-25 18:00 | NUR ---
GIVEN DISMISSAL INSTRUCTIONS. VERBALIZED UNDERSTANDING. REMOVED SALINE LOCK FROM RIGHT HAND, IV SITE WITHOUT REDNESS NOTED. REMOVED TELE PACK.
--- NOTE | 2024-10-25 18:26 | NUR ---
TAKEN TO PRIVATE CAR ALONG WITH PERSONAL BELONGINGS VIA WHEELCHAIR BY MARY BROCK.
[2024-10-25] MEDS ORDERED: DOXYCYCLINE HYCLATE 100 MG TABLET PO SCH (21:00)
[2024-10-26] MEDS ORDERED: predniSONE 10 MG TABLET PO SCH (09:00)
== END 2024-10-25 18:25 | disposition home or self-care (01) | DRG 270 ==
LOC: EDH 08:53 → EDHIP 12:26 → 4CH 10-19 12:20 → 2CV 10-21 09:43 → 2DH 10-22 16:09
PROVIDERS: ADMIT Internal Medicine; ATTEND Internal Medicine
PROC: 5A09357 Assistance with Respiratory Ventilation, Less than 24 Consecutive Hours, Continuous Positive Airway Pressure (ICD-10-PCS; 2024-10-18)
PROC: 5A09357 Assistance with Respiratory Ventilation, Less than 24 Consecutive Hours, Continuous Positive Airway Pressure (ICD-10-PCS; 2024-10-19)
PROC: 5A09357 Assistance with Respiratory Ventilation, Less than 24 Consecutive Hours, Continuous Positive Airway Pressure (ICD-10-PCS; 2024-10-20)
PROC: 5A09357 Assistance with Respiratory Ventilation, Less than 24 Consecutive Hours, Continuous Positive Airway Pressure (ICD-10-PCS; 2024-10-21)
PROC: 0W9D00Z Drainage of Pericardial Cavity with Drainage Device, Open Approach (ICD-10-PCS; principal; 2024-10-21 08:00)
PROC: 5A09357 Assistance with Respiratory Ventilation, Less than 24 Consecutive Hours, Continuous Positive Airway Pressure (ICD-10-PCS; 2024-10-22)
PROC: 5A09357 Assistance with Respiratory Ventilation, Less than 24 Consecutive Hours, Continuous Positive Airway Pressure (ICD-10-PCS; 2024-10-23)
PROC: 5A09357 Assistance with Respiratory Ventilation, Less than 24 Consecutive Hours, Continuous Positive Airway Pressure (ICD-10-PCS; 2024-10-24)
PROC: 5A09357 Assistance with Respiratory Ventilation, Less than 24 Consecutive Hours, Continuous Positive Airway Pressure (ICD-10-PCS; 2024-10-25)
DX: I13.0 Hypertensive heart and chronic kidney disease with heart failure and stage 1 through stage 4 chronic kidney disease, or unspecified chronic kidney disease (principal); I50.33 Acute on chronic diastolic (congestive) heart failure; J96.01 Acute respiratory failure with hypoxia; I31.4 Cardiac tamponade; F32.0 Major depressive disorder, single episode, mild; Z68.42 Body mass index [BMI] 45.0-49.9, adult; J44.1 Chronic obstructive pulmonary disease with (acute) exacerbation; I31.39 Other pericardial effusion (noninflammatory); I16.0 Hypertensive urgency; Z20.822 Contact with and (suspected) exposure to COVID-19; N18.9 Chronic kidney disease, unspecified; E11.22 Type 2 diabetes mellitus with diabetic chronic kidney disease; E66.01 Morbid (severe) obesity due to excess calories; E11.65 Type 2 diabetes mellitus with hyperglycemia; M48.061 Spinal stenosis, lumbar region without neurogenic claudication; E78.2 Mixed hyperlipidemia; E87.6 Hypokalemia; G47.33 Obstructive sleep apnea (adult) (pediatric); F41.9 Anxiety disorder, unspecified; Z79.84 Long term (current) use of oral hypoglycemic drugs; Z79.899 Other long term (current) drug therapy; Z95.5 Presence of coronary angioplasty implant and graft; Z87.891 Personal history of nicotine dependence; Z82.5 Family history of asthma and other chronic lower respiratory diseases; Z82.49 Family history of ischemic heart disease and other diseases of the circulatory system
CPT/HCPCS: 36415; 36600; 71045; 71270; 80048; 82150; 82435; 82550; 82803; 82945; 82947; 82948; 83605; 83615; 83690; 83735; 83880; 83986; 84132; 84157; 84295; 84484; 85018; 85025; 85027; 85610; 85730; 86850; 86900; 86901; 87071; 87076; 87116; 87205; 87206; 87635; 87804; 88108; 88305; 89051; 93005; 93306; 94640; 94660; 94664; 96374; 96375; 96376; 99285; A7048; G0378; J0330; J0360; J1100; J1650; J1815; J1885; J1940; J2003; J2250; J2270; J2405; J2704; J2710; J2919; J3010; J3475; J3480; J3490; J7030; J7040; Q9967; A4216; A4222; A4223; A4649; C1713; J0690

== ENCOUNTER 2025-07-12 19:34 | Emergency (ER) | payer SELFPAY ==
[~2025-07-12] VITALS: Ht 175.3 cm; Wt 147.4 kg
[~2025-07-12 19:34] MED LIST changes: +ALBU18HF7 IH; +AMLO-258 PO; +BUSP5TAB3 PO; +CARV25TA PO; +CETI10TA57 PO; +ESCI-8 PO; +FLUT1BLS3 IH; +FLUT9.9S NS; +FURO40TA5 PO; -POTA99CA PO; +ROSU5TAB51 PO; +SACU1TAB4 PO
--- NOTE | 2025-07-12 19:50 | ERN ---
ED Note History of Present Illness Stated Complaint: R KNEE PAIN Chief Complaint: Knee Injury/Swelling Time Seen by MD: 19:39 Time Seen by Midlevel: 19:40 Dictation: Mr. Del Rosario is a 54-year-old male with history of hypertension, diastolic heart failure, CKD, diabetes, COPD, obesity, depression, and chronic back pain/lumbar stenosis presented to the emergency department this evening for evaluation of knee pain. He states that he sustained a fall on Monday He states that he fell again today stating his right leg gave out on him. He states that when he fell he felt a tearing sensation prompting him to come to the Allergies: Coded Allergies: No Known Drug Allergies (Verified Allergy, 08/29/13) Home Meds Active Scripts Ibuprofen (Ibuprofen) 600 Mg Tablet, 1 TAB PO TID for pain, #12 TAB 0 Refills with food Prov:KEVIN OLIVA NP 07/12/25 Cyclobenzaprine HCl (Cyclobenzaprine HCl) 5 Mg Tablet, 1 TAB PO TIDP PRN for muscle spasms, #12 TAB 0 Refills Prov:KEVIN OLIVA NP 07/12/25 Furosemide (Furosemide) 40 Mg Tablet, 1 TAB PO DAILY for 30 Days, #30 TAB 0 Refills Prov:CR TABARES MD 10/25/24 Sacubitril/Valsartan (Entresto 97 mg-103 mg Tablet) 97 Mg-103 Mg Tablet, 1 TAB PO BID for 30 Days, #60 TAB 3 Refills Prov:CR TABARES MD 10/22/24 Albuterol Sulfate (Ventolin Hfa) 90 Mcg Hfa.aer.ad, 2 PUFF IH Q4PRN PRN for SHORTNESS OF BREATH/WHEEZING for 90 Days, #7 INHALER Prov:CR TABARES MD 10/18/24 Amlodipine Besylate (Amlodipine Besylate) 10 Mg Tablet, 10 MG PO DAILY for 30 Days, #30 TAB 0 Refills Prov:CR TABARES MD 10/18/24 Buspirone HCl (Buspirone HCl) 5 Mg Tablet, 5 MG PO BID PRN for ANXIETY, #90 TAB Prov:CR TABARES MD 10/18/24 Carvedilol (Carvedilol) 25 Mg Tablet, 25 MG PO BID for 90 Days, #180 TAB Prov:CR TABARES MD 10/18/24 Cetirizine HCl (Cetirizine HCl) 10 Mg Tablet, 10 MG PO HS, #90 TAB Prov:CR TABARES MD 10/18/24 Escitalopram Oxalate (Escitalopram Oxalate) 10 Mg Tablet, 10 MG PO DAILY for 90 Days, #90 TAB Prov:CR TABARES MD 10/18/24 Fluticasone Propionate (Flonase Allergy Relief) 50 Mcg/Actuation [place].susp, 2 SPRAY NS DAILY PRN for allergies, #9 ML Prov:CR TABARES MD 10/18/24 Rosuvastatin Calcium (Rosuvastatin Calcium) 5 Mg Tablet, 5 MG PO HS for 90 Days, #90 TAB Prov:CR TABARES MD 10/18/24 Fluticasone/Umeclidin/Vilanter (Trelegy Ellipta 100-62.5-25) 100-62.5 Blst.w.dev, 1 PUFF IH DAILY for 90 Days, #90 EA Prov:CR TABARES MD 10/18/24 Past Medical History Past Medical History: CHF, COPD, Depression, Diabetes-Type II, Hypertension, Other (CKD, obesity, chronic back pain/lumbar stenosis) Surgical History: None Surgical History Other: LEFT LEG, PERICARDIAL WINDOW OCTOBER 2024 PSYCH History: depression Family History: CAD, DM, HTN Social History: Negative, Lives with family RN Note Reviewed/Agreed w/PFSH: Yes Review of System Dictation REVIEW OF SYSTEMS: CONSTITUTIONAL: Patient denies fevers, chills, sweats and weight changes. EYES: Patient denies any visual symptoms. EARS, NOSE, AND THROAT: No difficulties with hearing. No symptoms of rhinitis or sore throat. CARDIOVASCULAR: Patient denies chest pains, palpitations, orthopnea and paroxysmal nocturnal dyspnea. RESPIRATORY: No dyspnea on exertion, no wheezing or cough. GI: No nausea, vomiting, diarrhea, constipation, abdominal pain, hematochezia or melena. : No urinary hesitancy or dribbling. No nocturia or urinary frequency. No abnormal urethral discharge. MUSCULOSKELETAL: Reports knee pain, right. He states he had a fall on Sunday 07/08 and again today. He states like his knee gave out on him . He states today he felt a tearing sensation to his right lateral knee. NEUROLOGIC: No chronic headaches, no seizures. Patient denies numbness, tingling or weakness. PSYCHIATRIC: Patient denies problems with mood disturbance. No problems with anxiety. ENDOCRINE: No excessive urination or excessive thirst. DERMATOLOGIC: Patient denies any rashes reports abrasion to right knee Initial Vital Sign VS Vital Signs Date Time Temp Pulse Resp B/P (MAP) Pulse Ox O2 Delivery O2 Flow Rate FiO2 07/12/25 19:38 99.7 69 20 180/95 96 Room Air 0 Physical Exam Dictation Vital signs: Reviewed. Constitutional: No acute distress. Non-toxic appearing. Head/Face: Normocephalic, atraumatic. Eyes: Periorbital areas with no swelling, redness, or edema. Lids and lashes are normal. Conjunctival injection is absent. Sclera anicteric. Pupils equal, round, reactive to light. ENT: Pinnas intact and no signs of trauma or erythema. Ear canals clear and no discharge. TMs no erythema. No nasal discharge or bleeding noted. Oropharynx with no exudate, redness, swelling, masses, exudates, or evidence of obstruction. Uvula midline. Mucous membranes moist. Neck: Trachea midline, no masses palpated, and no cervical lymphadenopathy. No swelling. Supple, full range of motion. Chest/Axilla: No tenderness, no crepitus, no paradoxical movement, no retractions. Cardiovascular: Regular rate, regular rhythm, no murmur, no gallops. Symmetric pulses. No peripheral edema. Respiratory: Respirations even and unlabored. Lung sounds clear; no wheezes, rales or rhonchi. Gastrointestinal: Morbidly obese No distention is appreciated. Bowel sounds are normal. No mass or organomegaly . There is no tenderness. No rebound. No rigidity. No voluntary or involuntary guarding. No Goodwin's sign. Neurological: Normal speech, gross motor function intact, gross sensory function intact. No focal weakness/Paresthesia. Musculoskeletal/Extremities: Symmetric pulses. There is pain with palpation lateral aspect of the right knee. There is no bony deformity or crepitus noted. He has good color, warmth, movement, and sensation to right toes. Integumentary: Skin is normal color, warm and dry. Cap refill less than 3 seconds. He has healing abrasion to top of the right knee. There is no bleeding, drainage, surrounding erythema, or warmth. Results (Laboratory/Radiology) X-RAY Comment: PATIENT: KANWAL DEL ROSARIO MR#: [id number] : 1970 SEX: M AGE: 54 LOCATION: [facility] ORDER 50 STATUS: REG ER REPORT#: [id number] SERVICE 48 REASON: fall injury ORDERING PHYSICIAN: KEVIN OLIVA NP PROCEDURE: KNEE 3V RT - KNEE 3VWS RT EXAM: CR right Knee, 3 View. CLINICAL HISTORY: fall injury COMPARISON: None provided. FINDINGS: BONES: No acute fracture or aggressive appearing osseous lesion. JOINTS: Medial compartment predominant moderate to severe tricompartmental right knee joint osteoarthritis. Intra-articular loose body. Small knee joint effusion. SOFT TISSUES: The soft tissues are unremarkable. IMPRESSION: 1. No acute osseous injury. 2. Moderate to severe tricompartmental right knee osteoarthritis, predominantly in the medial compartment, with intra-articular loose body and small joint effusion. /[place] DICTATED BY: SVETLANA CARLOS Jr., MD DATE: 07/12/252202 ELECTRONICALLY SIGNED BY: SVETLANA CARLOS Jr., MD DATE: 07/12/252202 ED Course ED Course Orders Procedure Category Date Status Time Wound Care (Er) CPOE 07/12/25 Transmitted 19:49 Knee 3vws Rt RAD 07/12/25 Resulted 19:49 Knee Immobilizer LUIGI 07/12/25 In Process 19:49 Hydrocodone/Apap PHA 07/12/25 In Process 5/325 ([place] 5/325mg) 20:30 Crutches W/Training CPOE 07/12/25 Transmitted (Er) 20:02 Current Medications Medications (Trade) Dose Ordered Sig/Blaine Route PRN Reason Start Time Stop Time Status Last Admin Dose Admin Acetaminophen/ Hydrocodone Bitart (NORco 5/325MG) 1 tab ONCE PO 07/12/25 20:30 07/12/25 23:59 07/12/25 20:35 Vital Signs Date Time Temp Pulse Resp B/P (MAP) Pulse Ox O2 Delivery O2 Flow Rate FiO2 07/12/25 19:38 99.7 69 20 180/95 96 Room Air 0 Uneventful ED course. Patient has tenderness upon palpation of the lateral aspect of the right knee with no bony deformity or crepitus. X-ray of the knee unremarkable; no fracture or dislocation noted. Osteoarthritis seen. Patient received dose [place] x1. Wound was cleansed with dressing applied. Patient was placed in a right knee immobilizer and instructed on the use of crutches. He demonstrates appropriate use. He has been instructed to follow up with his PCP for further follow up for imaging/MRI and/or referral to orthopedist. Medical Decision Making MDM MDM: Differential diagnosis: Right knee dislocation, right knee fracture, abrasion, strain Rationale: Tests considered and ordered secondary to shared decision making include: X-ray Previous outside records reviewed: Old ER visits. Risk of complication and/or morbidity or mortality of patient management: None Medications-Per medication reconciliation Need for hospitalization: Patient does not meet criteria for hospitalization. Need for emergency major/minor surgery: No There are no social concerns with this patient. Prescription drug management: Ibuprofen, Flexeril Prescriptions will include symptomatic care Patient's prior external medical records from other ER visits were reviewed by me as indicated. Prior testing and results from previous visits were reviewed. Prior tests were taken into account with medical decision making and resource utilization, independent historian/historians were used to obtain complete medical history. I independently interpreted the test that were performed, results were reviewed by me and considered findings on radiology if ordered. Medical management and examination interpretation discussions were had by me with other qualified healthcare professionals as indicated for the patient's care. DX & DISP Disposition: Discharge Departure Impression: Primary Impression: Knee pain, right Additional Impressions: Suspected ligamentous injury right knee, Osteoarthritis Condition: Stable Scripts Ibuprofen (Ibuprofen) 600 Mg Tablet 1 TAB PO TID for pain, #12 TAB 0 Refills with food Prov: KEVIN OLIVA NP 07/12/25 Cyclobenzaprine HCl (Cyclobenzaprine HCl) 5 Mg Tablet 1 TAB PO TIDP PRN for muscle spasms, #12 TAB 0 Refills Prov: KEVIN OLIVA NP 07/12/25 Additional Instructions: You were seen in the ER for right knee pain after fall. You reported that your knee gave out and he felt a tearing sensation. The x-ray of your knee showed no broken bone or dislocation. I have a healing scrape/abrasion on your knee that does not appear to be infected. Your wound was cleansed and dressed. Keep the knee immobilizer on when standing or walking until cleared by your doctor. Use crutches to limit weight-bearing on the right leg. Change the knee dressing daily or sooner if it becomes wet or soiled. Watch the abrasion closely for signs of infection: Spreading redness, swelling, warmth, pus/drainage, or worsening pain. Apply ice packs to the knee for 15-20 minutes at a time three to 4 times a day. Keep the leg elevated on pillows when resting. For milder pain you may use Tylenol [id number]. You may take ibuprofen every8 hours as needed for discomfort. You may take Flexeril as needed for muscle spasms. Do not drive or operate heavy machinery while taking Flexeril. Follow up early next week with your PCP. You will likely need a referral to Orthopedics and possibly an MRI to evaluate for ligament or soft tissue injury. Return to the hospital immediately if you have: Worsening pain/swelling in the knee, redness/warmth/pus/spreading swelling around the abrasion, fever/chills, numbness/tingling/inability to move your toes or foot, or inability to bear any weight even with crutches. Referrals: CR TABARES MD (PCP) Time of Disposition: 21:08 KEVIN OLIVA NP Jul 12, 2025 19:50
--- NOTE | 2025-07-12 20:26 | NUR ---
2014 WOUND CARE WAS PERFORM ON PATIENT'S RIGHT KNEE. 2024 KNEE IMMOBILIZER WAS PLACED ON PATIENT'S RIGHT KNEE. 2025 EDUCATION FOR USE OF CRUTCHES.
[2025-07-12] MEDS: HYDROcodone/APAP 5/325 1 TAB TABLET PO SCH (20:35)
--- NOTE | 2025-07-12 21:04 | HMCIMG ---
EXAM: CR right Knee, 3 View. CLINICAL HISTORY: fall injury COMPARISON: None provided. FINDINGS: BONES: No acute fracture or aggressive appearing osseous lesion. JOINTS: Medial compartment predominant moderate to severe tricompartmental right knee joint osteoarthritis. Intra-articular loose body. Small knee joint effusion. SOFT TISSUES: The soft tissues are unremarkable. IMPRESSION: 1. No acute osseous injury. 2. Moderate to severe tricompartmental right knee osteoarthritis, predominantly in the medial compartment, with intra-articular loose body and small joint effusion. Formerly [facility], [facility]
[2025-07-12] MEDS ORDERED: IBUP-1492 PO (21:06)
[2025-07-12] MEDS ORDERED: CYCL5TAB3 PO (21:06)
[2025-07-12 21:49] VITALS: BP 155/89; PULSE 87; RESP 19; TEMP 99.1; O2SAT 96
== END 2025-07-12 21:50 | disposition home or self-care (01) ==
LOC: EDH 19:34
DX: M25.561 Pain in right knee (principal); I13.0 Hypertensive heart and chronic kidney disease with heart failure and stage 1 through stage 4 chronic kidney disease, or unspecified chronic kidney disease; E11.22 Type 2 diabetes mellitus with diabetic chronic kidney disease; N18.9 Chronic kidney disease, unspecified; E66.9 Obesity, unspecified; F32.A Depression, unspecified; I50.9 Heart failure, unspecified; J44.9 Chronic obstructive pulmonary disease, unspecified; Z79.1 Long term (current) use of non-steroidal anti-inflammatories (NSAID); Z79.899 Other long term (current) drug therapy
CPT/HCPCS: 29505; 73562; 99283